=== PATIENT | male | born 1955 | race Caucasian/White ===

== ENCOUNTER 2017-10-28 03:05 | Inpatient (IN) | payer MEDICARE, MEDICAID ==
[2017-10-28] MEDS ORDERED: NORMAL SALINE 1000 ML 1,000 ML IV ONE (04:51)
[2017-10-28] MEDS ORDERED: ONDANSETRON HCL INJ/PF 4 MG/2 ML SDV IV ONE (04:51)
--- NOTE | 2017-10-28 04:53 | ER Document Report ---
ED General - General TRAVEL OUTSIDE OF THE [place] IN LAST 30 DAYS: No <JUJU OAKES - Last Filed: 10/28/17 07:14> <VIANEY COURTNEY - Last Filed: 10/28/17 08:24> - General Chief Complaint: Nausea/Vomiting Stated Complaint: FEVER,VOMITING Time Seen by Provider: 10/28/17 04:25 Notes: Patient is a 62-year-old male comes emergency department for chief complaint of chills and fevers since yesterday, weakness that has been progressive to the point that now he cannot get up without full assistance, and he has had a few episodes of vomiting today. He denies abdominal pain, headache, chest pain, shortness of breath, sore throat. Past medical history includes insulin- dependent diabetes, neuropathy, diabetic foot ulcer on the right heel, CABG. he is new to the area. He has had sepsis in the past. is at bedside. (JUJU OAKES) - Related Data Allergies/Adverse Reactions: lisinopril Allergy (Verified 10/28/17 03:10) Past Medical History - General Information source: Patient, Relative - - Social History Smoking Status: Never Smoker Frequency of alcohol use: None Drug Abuse: None Lives with: Family Family History: Reviewed & Not Pertinent - Past Medical History Cardiac Medical History: Reports: Hx Coronary Artery Disease, Hx Hypertension Endocrine Medical History: Reports: Hx Diabetes Mellitus Type 2 Past Surgical History: Reports: Hx Cholecystectomy, Hx Coronary Artery Bypass Graft - Immunizations Immunizations up to date: Yes Hx Diphtheria, Pertussis, Tetanus Vaccination: Yes <JUJU OAKES - Last Filed: 10/28/17 07:14> Review of Systems - Review of Systems Constitutional: See HPI EENT: No symptoms reported Cardiovascular: No symptoms reported Respiratory: No symptoms reported Gastrointestinal: See HPI Genitourinary: No symptoms reported Male Genitourinary: No symptoms reported Musculoskeletal: No symptoms reported Skin: No symptoms reported Hematologic/Lymphatic: No symptoms reported Neurological/Psychological: No symptoms reported <JUJU OAKES - Last Filed: 10/28/17 07:14> Physical Exam <JUJU OAKES - Last Filed: 10/28/17 07:14> <VIANEY COURTNEY - Last Filed: 10/28/17 08:24> - Vital signs Vitals: Temp Pulse Resp BP Pulse Ox 99.7 F 75 18 125/71 95 10/28/17 03:14 10/28/17 03:14 10/28/17 03:14 10/28/17 03:14 10/28/17 03:14 - Notes Notes: GENERAL: Pale, ill-appearing. However he is alert and interactive HEAD: Normocephalic, atraumatic. EYES: Pupils equal, round, and reactive to light. Extraocular movements intact. ENT: Oral mucosa very dry. Unremarkable oral pharyngeal exam. Unremarkable ENT exam otherwise. NECK: Full range of motion. Supple. Trachea midline. LUNGS: Clear to auscultation bilaterally, no wheezes, rales, or rhonchi. No respiratory distress. Old scar over the chest consistent with open heart surgery. HEART: Regular rate and rhythm. Systolic murmur. ABDOMEN: Soft, non-tender. Non-distended. Bowel sounds present in all 4 quadrants. EXTREMITIES: Moves all 4 extremities spontaneously. Small amount of edema in both extremities. Discoloration of the distal extremities. There is a large ulcerated area over the right heel with surrounding erythema and warmth. No sensation noted in the feet. Pulses and capillary refill intact. BACK: no cervical, thoracic, lumbar midline tenderness. No saddle anesthesia, normal distal neurovascular exam. NEUROLOGICAL: Alert and oriented x3. Normal speech. [cranial nerves II through XII grossly intact]. PSYCH: Normal affect, normal mood. SKIN: Pale, slightly diaphoretic (JUJU OAKES) Course - Laboratory Result Diagrams: 10/28/17 05:00 10/28/17 05:00 <JUJU OAKES - Last Filed: 10/28/17 07:14> - Laboratory Result Diagrams: 10/28/17 05:00 10/28/17 05:00 <VIANEY COURTNEY - Last Filed: 10/28/17 08:24> - Re-evaluation Re-evalutation: Patient pale, diaphoretic, ill-appearing. He is responsive, he denies any current complaints other than weakness. He is not tachycardic, hypotensive, or febrile at this time. CBC shows leukocytosis with elevation of neutrophils, 2% bands. Chemistry shows renal insufficiency with creatinine of 1.7, no comparative labs. Chemistry generally unremarkable otherwise. Abdomen is actually very benign on evaluation. Lactic acid is elevated at 4.1 concerning for sepsis. Venous blood gas is unremarkable. Chest x-ray and urinalysis are both pending. Suspect his diabetic foot ulcer could be an infection source. Initiated antibiotics. Blood cultures pending. Will Place [facility]. Patient reevaluated bedside, no significant change, states he feels okay. Capillary refill intact, vital signs without significant change. 10/28/17 07:10 Obtained urine, still pending, introduced to Jake Courtney PA-C at bedside. Will perform x-ray of the foot to rule out gas/osteo. (JUJU OAKES) 10/28/17 08:22 UA and foot XR unremarkable for acute pathology. Spoke with Dr. Lee who accepted admission to medical floor. (VIANEY COURTNEY) - Vital Signs Vital signs: Temp Pulse Resp BP Pulse Ox 99.7 F 75 18 109/39 L 95 10/28/17 03:14 10/28/17 03:14 10/28/17 06:02 10/28/17 06:02 10/28/17 06:02 - Laboratory Laboratory results interpreted by me: 10/28/17 10/28/17 10/28/17 05:00 05:00 05:00 WBC 14.1 H RBC 3.37 L Hgb 9.6 L Hct 28.4 L RDW 17.1 H Seg Neuts % (Manual) 93 H Band Neutrophils % 2 L Lymphocytes % (Manual) 2 L Abs Neuts (Manual) 13.4 H Abs Lymphs (Manual) 0.3 L BUN 49 H Creatinine 1.76 H Est GFR ( Amer) 48 L Est GFR (Non-Af Amer) 40 L Glucose 119 H Lactic Acid 4.1 H Urine Protein Urine Blood 10/28/17 07:00 WBC RBC Hgb Hct RDW Seg Neuts % (Manual) Band Neutrophils % Lymphocytes % (Manual) Abs Neuts (Manual) Abs Lymphs (Manual) BUN Creatinine Est GFR ( Amer) Est GFR (Non-Af Amer) Glucose Lactic Acid Urine Protein 30 H Urine Blood SMALL H Discharge <JUJU OAKES - Last Filed: 10/28/17 07:14> - Discharge Admitting Provider: Hospitalist - Dr. Lee Unit Admitted: Medical Floor <VIANEY COURTNEY - Last Filed: 10/28/17 08:24> - Discharge Clinical Impression: Weakness Sepsis Qualifiers: Sepsis type: sepsis due to unspecified organism Qualified Code(s): A41.9 - Sepsis, unspecified organism Condition: Stable Disposition: ADMITTED INPATIENT
[2017-10-28 05:16] LABS: VENOUS BLOOD BASE EXCESS 0.3 mmol/L; VENOUS BLOOD HCO3 25.2 mmol/L (20-32); VENOUS BLOOD PCO2 41.7 mmHg (35-63); VENOUS BLOOD PH 7.4 (7.30-7.42)
[2017-10-28 05:20] LABS: HEMATOCRIT 28.4 % (37.9-51.0); HEMOGLOBIN 9.6 g/dL (13.5-17.0); MEAN CORPUSCULAR HEMOGLOBIN 28.4 pg (27.0-33.4); MEAN CORPUSCULAR HGB CONC 33.7 g/dL (32.0-36.0); MEAN CORPUSCULAR VOLUME 84 fl (80-97); PLATELET COUNT 278 10^3/uL (150-450); RED BLOOD COUNT 3.37 10^6/uL (4.35-5.55); RED CELL DISTRIBUTION WIDTH 17.1 % (11.5-14.0); WHITE BLOOD COUNT 14.1 10^3/uL (4.0-10.5)
[2017-10-28 05:38] LABS: ALANINE AMINOTRANSFERASE 22 U/L (21-72); ALBUMIN 3.6 g/dL (3.5-5.0); ALKALINE PHOSPHATASE 85 U/L (38-126); ANION GAP 14 (5-19); ASPARTATE AMINO TRANSFERASE 18 U/L (17-59); BILIRUBIN,DIRECT 0.4 mg/dL (0.0-0.4); BILIRUBIN,TOTAL 0.8 mg/dL (0.2-1.3); BLOOD UREA NITROGEN 49 mg/dL (7-20); CALCIUM 8.9 mg/dL (8.4-10.2); CARBON DIOXIDE 24 mmol/L (22-30); CHLORIDE 100 mmol/L (98-107); GLUCOSE 119 mg/dL (75-110); LIPASE 56.4 U/L (23-300); POTASSIUM 4.9 mmol/L (3.6-5.0); SODIUM 138.3 mmol/L (137-145); TOTAL PROTEIN 6.9 g/dL (6.3-8.2)
[2017-10-28 06:06] LABS: ABSOLUTE LYMPHOCYTES# (MANUAL) 0.3 10^3/uL (0.5-4.7); ABSOLUTE MONOCYTES # (MANUAL) 0.4 10^3/uL (0.1-1.4); ABSOLUTE NEUTROPHILS# (MANUAL) 13.4 10^3/uL (1.7-8.2); BAND NEUTROPHILS % (MANUAL) 2 % (3-5); BASOPHILS % (MANUAL) 0 % (0-2); EOSINOPHILS % (MANUAL) 0 % (0-6); LYMPHOCYTES % (MANUAL) 2 % (13-45); MONOCYTES % (MANUAL) 3 % (3-13); POLYCHROMASIA SLIGHT; SCHISTOCYTES SLIGHT; SEGMENTED NEUTROPHILS % (MAN) 93 % (42-78); TOTAL CELLS COUNTED 100; TOXIC GRANULATION SLIGHT
[2017-10-28 06:07] LABS: PAPPENHEIMER BODIES PRESENT; PLATELET COMMENT ADEQUATE
[2017-10-28] MEDS ORDERED: PIPERACILLIN/TAZOBACTAM 4.5 GM VIAL IV ONE (06:10)
[2017-10-28] MEDS ORDERED: VANCOMYCIN HCL INJ 1000 MG VIAL IV ONE (06:10)
--- NOTE | 2017-10-28 07:35 | RADIOLOGY REPORT (SQ) ---
Chest single view on 10/28/2017 at 5:44 AM CLINICAL INDICATION: Fever, weakness COMPARISON: None FINDINGS: The patient is status post median sternotomy. Cardiomegaly is noted. There is minimal basilar atelectasis. The lungs are otherwise clear. Hilar and mediastinal contours are within normal limits. Pulmonary vascularity is within normal limits. Degenerative changes are noted in the left shoulder. IMPRESSION: No acute disease.
[2017-10-28 07:56] LABS: APPEARANCE,URINE CLEAR; BILIRUBIN,URINE NEGATIVE (NEGATIVE); COLOR,URINE YELLOW; GLUCOSE, URINE NEGATIVE (NEGATIVE); KETONES,URINE NEGATIVE (NEGATIVE); LEUKOCYTE ESTERASE,URINE NEGATIVE (NEGATIVE); NITRITE,URINE NEGATIVE (NEGATIVE); PROTEIN,URINE 30 mg/dL (NEGATIVE); URINE SPECIFIC GRAVITY 1.014; UROBILINOGEN,URINE NEGATIVE mg/dL (<2.0)
--- NOTE | 2017-10-28 07:56 | RADIOLOGY REPORT (SQ) ---
EXAM DESCRIPTION: XR FOOT 1-2 VIEWS COMPLETED DATE/TME: 10/28/2017 07:13 CLINICAL HISTORY: 62 years Male, eval for gas/osteo COMPARISON: None. Findings: Moderate diffuse swelling, moderate calcaneal enthesophytes, and atherosclerosis. Surgical clips of the right lower leg.. 1.0 cm ossicular avulsive fragment of the right medial malleolus. Bones, joints, and soft tissues of the XR FOOT 3 VIEWS appear otherwise intact. IMPRESSION: Swelling.
--- NOTE | 2017-10-28 09:24 | EKG REPORT ---
SEVERITY:- NORMAL ECG - SINUS RHYTHM : Confirmed by: Jenny Browning 28-Oct-2017 09:22:59
[2017-10-28] MEDS ORDERED: VANCOMYCIN HCL 0 MG in DEXTROSE 5%-WATER 250 ML IV NR (15:30)
[2017-10-28] MEDS ORDERED: DEXTROSE 40% GEL 15 GM TUBE X 2 PO PRN (21:17)
[2017-10-28] MEDS ORDERED: DEXTROSE 50%-WATER SYRINGE 12.5 GM/25 ML DOSE IV PRN (21:17)
[2017-10-28] MEDS ORDERED: DEXTROSE 50%-WATER SYRINGE 25 GM/50 ML DOSE IV PRN (21:17)
[2017-10-28] MEDS ORDERED: DEXTROSE 40% GEL 15 GM TUBE PO PRN (21:17)
[2017-10-28] MEDS ORDERED: INSULIN REG, HUMAN 100 UNIT/ML 3 ML VIAL (PYX) SUBCUT PRN (21:17)
[2017-10-28] MEDS ORDERED: GLUCAGON,HUMAN RECOMB 1 MG INJ IM PRN (21:17)
[2017-10-28] MEDS ORDERED: NORMAL SALINE 500 ML IV ONE (22:45)
[2017-10-28] MEDS: VANCOMYCIN HCL 1,000 MG in DEXTROSE 5%-WATER 250 ML IV SCH (23:49)
[2017-10-28] MEDS: ATORVASTATIN CALCIUM 40 MG TABLET PO SCH (23:50)
[2017-10-28] MEDS: HEPARIN SOD (PORCINE) 5,000 UNIT/ML 1 ML SYRINGE SUBCUT SCH (23:50)
[2017-10-28] MEDS: ATENOLOL 50 MG TABLET PO SCH (23:50)
[2017-10-29] MEDS: VANCOMYCIN HCL 1,000 MG in DEXTROSE 5%-WATER 250 ML IV SCH ×2 (05:24→19:34)
[2017-10-29] MEDS: PIPERACILLIN SODIUM/TAZOBACTAM 3.375 GM in NORMAL SALINE 100 ML IV SCH ×6 (05:24→23:33)
[2017-10-29] MEDS: HEPARIN SOD (PORCINE) 5,000 UNIT/ML 1 ML SYRINGE SUBCUT SCH ×3 (05:25→21:37)
[2017-10-29] MEDS: LANSOPRAZOLE 15 MG TAB.RAP.DR PO SCH ×2 (05:25→17:50)
[2017-10-29 05:41] LABS: HEMATOCRIT 24.8 % (37.9-51.0); HEMOGLOBIN 8.6 g/dL (13.5-17.0); MEAN CORPUSCULAR HEMOGLOBIN 29.1 pg (27.0-33.4); MEAN CORPUSCULAR HGB CONC 34.5 g/dL (32.0-36.0); MEAN CORPUSCULAR VOLUME 85 fl (80-97); PLATELET COUNT 194 10^3/uL (150-450); RED BLOOD COUNT 2.94 10^6/uL (4.35-5.55); RED CELL DISTRIBUTION WIDTH 17.9 % (11.5-14.0); WHITE BLOOD COUNT 9.8 10^3/uL (4.0-10.5)
[2017-10-29 06:50] LABS: ANION GAP 13 (5-19); BLOOD UREA NITROGEN 50 mg/dL (7-20); CALCIUM 7.9 mg/dL (8.4-10.2); CARBON DIOXIDE 23 mmol/L (22-30); CHLORIDE 96 mmol/L (98-107); GLUCOSE 237 mg/dL (75-110); POTASSIUM 5.1 mmol/L (3.6-5.0); SODIUM 131.5 mmol/L (137-145)
--- NOTE | 2017-10-29 07:40 | PDOC H&P ---
History of Present Illness Admission Date/PCP: 10/28/17 14:59 Patient complains of: dizziness, nausea, not feeling well History of Present Illness: FAVIO JEFFRIES is a 62 year old male with a past medical history of insulin- dependent diabetes mellitus, hypertension, and prior quadruple bypass who presented with complaints of weakness, dizziness and overall not feeling well. Patient says that this is been going on for the past 2 days. He denies any fever or chills. He has a chronic nonhealing ulcer on the right heel. He denies increasing discharge from the wound. He denies any dysuria or hematuria , frequency or clumping. No cough or shortness of breath. No chest pain. Denies headaches. He said he had 3 episodes of nonbloody nonbilious vomiting last night. Past Medical History Cardiac Medical History: Reports: Coronary Artery Disease, Hypertension Endocrine Medical History: Reports: Diabetes Mellitus Type 2 GI Medical History: Reports: Gastroesophageal Reflux Disease Musculoskeltal Medical History: Reports: Arthritis Psychiatric Medical History: Reports: Depression Hematology: Reports: Anemia Past Surgical History Past Surgical History: Reports: Cholecystectomy, Coronary Artery Bypass Graft Social History Lives with: Family Smoking Status: Never Smoker - Advance Directive Resuscitation Status: Full Code Family History Family History: Reviewed & Not Pertinent Medication/Allergy Home Medications: Aspirin [Aspirin EC] 81 mg PO DAILY 10/28/17 Atenolol [Tenormin 50 mg Tablet] 50 mg PO Q12 10/28/17 Atorvastatin Calcium [Lipitor 40 mg Tablet] 40 mg PO QHS 10/28/17 Cranberry Fruit Extract [Cranberry] 300 mg PO DAILY 10/28/17 Furosemide [Lasix 20 mg Tablet] 20 mg PO BID 10/28/17 Insulin Regular, Human [Humulin R (Reg) Insulin 100 unit/mL] 28 unit SQ ACLUNCH 10/28/17 Insulin Regular, Human [Humulin R (Reg) Insulin 100 unit/mL] 86 unit SQ ACSUPPER 10/28/17 Insulin Regular, Human [Humulin R (Reg) Insulin 100 unit/mL] 96 unit SQ QAM 05/16 Iron 65 mg PO DAILY 10/28/17 Losartan Potassium [Cozaar 100 mg Tablet] 100 mg PO DAILY 10/28/17 Metoclopramide HCl [Reglan] 5 mg PO TID 10/28/17 NPH, Human Insulin Isophane [Humulin N (NPH) Insulin 100 unit/mL] 74 units SQ QAM 10/28/17 NPH, Human Insulin Isophane [Humulin N (NPH) Insulin 100 unit/mL] 150 unit SQ QHS 10/28/17 Omeprazole 20 mg PO BID 10/28/17 Potassium Chloride [Klor-Con 10 Meq Capsule ER] 10 mg PO DAILY 10/28/17 Ciprofloxacin HCl [Cipro 750 mg Tablet] 750 mg PO Q12 84 Days tablet 11/03/17 Allergies/Adverse Reactions: lisinopril Allergy (Verified 10/28/17 08:51) Review of Systems ROS unobtainable: Due to endotracheal tube, Due to mental status, Other All systems: reviewed and no additional remarkable complaints except as stated - as mentioned in HPI Physical Exam Vital Signs: Temp Pulse Resp BP Pulse Ox 98.9 F 63 18 140/89 H 100 10/28/17 22:00 10/28/17 22:00 10/28/17 22:00 10/28/17 22:00 10/28/17 22:00 Intake & Output 10/28/17 10/29/17 10/30/17 06:59 06:59 06:59 Intake Total 850 Output Total 500 Balance 350 Weight 345 lb 7.43 oz General appearance: PRESENT: no acute distress, well-developed, well-nourished Head exam: PRESENT: atraumatic, normocephalic Throat exam: PRESENT: post pharyngeal erythema, tonsillar erythema, tonsillar exudate, tonsillogmegaly, other Neck exam: ABSENT: carotid bruit, JVD, lymphadenopathy, thyromegaly Respiratory exam: PRESENT: clear to auscultation eliseo. ABSENT: rales, rhonchi, wheezes Cardiovascular exam: PRESENT: RRR. ABSENT: diastolic murmur, rubs, systolic murmur Pulses: PRESENT: normal dorsalis pedis pul Vascular exam: PRESENT: normal capillary refill GI/Abdominal exam: PRESENT: normal bowel sounds, soft. ABSENT: distended, guarding, mass, organolmegaly, rebound, tenderness Rectal exam: PRESENT: deferred Musculoskeletal exam: PRESENT: other - Note of a 2 x 2 centimeters, chronic, ulcer on the right heel, with no active discharge. No surrounding tenderness. Note of minimal erythema on the right lower leg. Neurological exam: PRESENT: alert, awake, oriented to person, oriented to place , oriented to time, oriented to situation, CN II-XII grossly intact. ABSENT: motor sensory deficit Results Laboratory Results: 10/29/17 05:10 10/29/17 05:10 10/28/17 10/29/17 10/29/17 20:15 01:01 05:10 WBC 9.8 RBC 2.94 L Hgb 8.6 L Hct 24.8 L MCV 85 MCH 29.1 MCHC 34.5 RDW 17.9 H Plt Count 194 Sodium Potassium Chloride Carbon Dioxide Anion Gap BUN Creatinine Est GFR ( Amer) Est GFR (Non-Af Amer) Glucose Lactic Acid 3.8 H 3.3 H Calcium 10/29/17 05:10 WBC RBC Hgb Hct MCV MCH MCHC RDW Plt Count Sodium 131.5 L Potassium 5.1 H Chloride 96 L Carbon Dioxide 23 Anion Gap 13 BUN 50 H Creatinine 1.79 H Est GFR ( Amer) 47 L Est GFR (Non-Af Amer) 39 L Glucose 237 H Lactic Acid Calcium 7.9 L Impressions: Chest X-Ray 10/28/17 04:50 IMPRESSION: No acute disease. Foot X-Ray 10/28/17 07:13 IMPRESSION: Swelling. Assessment & Plan - Diagnosis (1) Sepsis Qualifiers: Sepsis type: sepsis due to unspecified organism Qualified Code(s): A41.9 - Sepsis, unspecified organism Is this a current diagnosis for this admission?: Yes Plan: Chest x-ray and urinalysis were unremarkable. Sepsis suspected to be likely secondary to infection of the right heel ulcer. Patient was given broad- spectrum IV antibiotic in the ER. Lactic acid was initially elevated. We will continue to check lactic acid. Blood culture came back positive for gram- negative bacilli. We will continue vancomycin and IV Zosyn and Timentin. De- escalate antibiotics pending blood culture and sensitivity results. (2) Non-healing ulcer of right foot Is this a current diagnosis for this admission?: Yes Plan: Culture from right to the ulcer is pending. Continue IV antibiotics. Daily dressing changes. (3) Insulin dependent diabetes mellitus Is this a current diagnosis for this admission?: Yes Plan: Sliding scale at the moment. Continue to monitor blood sugars. - Time Time Spent: 30 to 50 Minutes - Inpatient Certification I certify that my determination is in accordance with my understanding of Medicare's requirements for reasonable and necessary INPATIENT services [42 CFR 412.3e].: Yes Medical Necessity: Failure to Improve With Outpatient Therapy, Need For IV Fluids
[2017-10-29] MEDS ORDERED: METFORMIN HCL 500 MG TABLET PO SCH (08:00)
[2017-10-29] MEDS ORDERED: (PENDING PHARMACY ID) (Iron [Iron] 65 MG) PO SCH (10:00)
[2017-10-29] MEDS: INSULIN NPH (ISOPHANE), HUMAN 100 UNIT/ML 3 ML SUBCUT SCH ×2 (10:40→17:52)
[2017-10-29] MEDS: METOCLOPRAMIDE HCL 10 MG TABLET PO SCH ×3 (10:42→17:51)
[2017-10-29] MEDS: ASPIRIN 81 MG TABLET, ENT COATED PO SCH (10:44)
[2017-10-29] MEDS: FERROUS SULFATE 325 MG TABLET PO SCH (10:44)
--- NOTE | 2017-10-29 11:48 | PDOC PROGRESS REPORT ---
Subjective Progress Note for:: 10/29/17 Subjective:: Mr. Neal is a 62-year-old male who was initially admitted for sepsis. No acute overnight. No fever chills. He denies pain on his leg and right foot ulcer but he does have long-standing severe diabetic neuropathy. He denies any shortness of breath or chest pain. He is tolerating diet well. Reason For Visit: POSSIBLE SEPSIS,CHRONIC NON HEALING ULCER,STAGE 3 Physical Exam Vital Signs: Temp Pulse Resp BP Pulse Ox 99.5 F 65 16 97/72 L 98 10/29/17 08:15 10/29/17 08:15 10/29/17 08:15 10/29/17 08:15 10/29/17 08:15 Intake & Output 10/28/17 10/29/17 10/30/17 06:59 06:59 06:59 Intake Total 850 Output Total 500 Balance 350 Weight 345 lb 7.43 oz General appearance: PRESENT: no acute distress, well-developed, well-nourished Head exam: PRESENT: atraumatic, normocephalic Eye exam: PRESENT: conjunctiva pink, EOMI, PERRLA. ABSENT: scleral icterus Neck exam: ABSENT: carotid bruit, JVD, lymphadenopathy, thyromegaly Respiratory exam: PRESENT: clear to auscultation eliseo. ABSENT: rales, rhonchi, wheezes Cardiovascular exam: PRESENT: RRR. ABSENT: diastolic murmur, rubs, systolic murmur Pulses: PRESENT: normal dorsalis pedis pul GI/Abdominal exam: PRESENT: normal bowel sounds, soft. ABSENT: distended, guarding, mass, organolmegaly, rebound, tenderness Rectal exam: PRESENT: deferred Neurological exam: PRESENT: alert, awake, oriented to person, oriented to place , oriented to time, oriented to situation, CN II-XII grossly intact. ABSENT: motor sensory deficit Results Laboratory Results: 10/29/17 05:10 10/29/17 05:10 10/28/17 10/29/17 10/29/17 20:15 01:01 05:10 WBC 9.8 RBC 2.94 L Hgb 8.6 L Hct 24.8 L MCV 85 MCH 29.1 MCHC 34.5 RDW 17.9 H Plt Count 194 Sodium Potassium Chloride Carbon Dioxide Anion Gap BUN Creatinine Est GFR ( Amer) Est GFR (Non-Af Amer) Glucose Lactic Acid 3.8 H 3.3 H Calcium 10/29/17 05:10 WBC RBC Hgb Hct MCV MCH MCHC RDW Plt Count Sodium 131.5 L Potassium 5.1 H Chloride 96 L Carbon Dioxide 23 Anion Gap 13 BUN 50 H Creatinine 1.79 H Est GFR ( Amer) 47 L Est GFR (Non-Af Amer) 39 L Glucose 237 H Lactic Acid Calcium 7.9 L Impressions: Chest X-Ray 10/28/17 04:50 IMPRESSION: No acute disease. Foot X-Ray 10/28/17 07:13 IMPRESSION: Swelling. Assessment & Plan - Diagnosis (1) Sepsis Qualifiers: Sepsis type: sepsis due to unspecified organism Qualified Code(s): A41.9 - Sepsis, unspecified organism Is this a current diagnosis for this admission?: Yes Plan: Sepsis suspected to be likely secondary to infection of the right heel ulcer. Blood culture grew gram-negative bacilli. Will await final culture and sensitivity results. Lactic acid is normalized. Continue vancomycin and IV Zosyn for now. De-escalate antibiotics pending blood culture and sensitivity results. (2) Non-healing ulcer of right foot Is this a current diagnosis for this admission?: Yes Plan: Patient is a stage III right foot ulcer. Culture from right to the ulcer is pending. Continue IV antibiotics. Daily dressing changes. Will order for MRI of the right foot to rule out osteomyelitis. (3) Insulin dependent diabetes mellitus Is this a current diagnosis for this admission?: Yes Plan: Resume home regimen of NPH. Continue sliding scale. Continue to monitor blood sugars. - Time Time Spent with patient: 25-34 minutes
[2017-10-29] MEDS ORDERED: GLUCAGON,HUMAN RECOMB 1 MG INJ IM PRN (11:55)
[2017-10-29] MEDS ORDERED: DEXTROSE 50%-WATER 25 GM/50 ML DISP.SYRIN IV PRN ×2 (11:55)
[2017-10-29] MEDS ORDERED: DEXTROSE 40% GEL 15 GM TUBE PO PRN ×2 (11:55)
[2017-10-29] MEDS ORDERED: NORMAL SALINE 1000 ML 1,000 ML IV SCH (12:00)
[2017-10-29] MEDS: ATENOLOL 50 MG TABLET PO SCH ×2 (12:42→21:24)
[2017-10-29] MEDS: INSULIN REG, HUMAN 100 UNIT/ML 3 ML VIAL (PYX) SUBCUT PRN ×3 (12:43→21:25)
[2017-10-29] MEDS ORDERED: LORAZEPAM INJ 2 MG/1 ML VIAL IV PRN (14:29)
--- NOTE | 2017-10-29 16:24 | RADIOLOGY REPORT (SQ) ---
EXAM DESCRIPTION: MRI RT LOWER EXTREMITY WITHOUT COMPLETED DATE/TIME: 10/29/2017 4:00 pm REASON FOR STUDY: r/o osteomyelitis, chronic right foot ulcer TECHNIQUE: Multiplanar imaging of the right foot to include fat and fluid sensitive sequences. LIMITATIONS: None. FINDINGS: BONE MARROW: Abnormal marrow edema is present in the plantar aspect of the calcaneus worri some for osteomyelitis. This is immediately deep to a 3 cm diameter soft tissue ulcer along the plan tar calcaneal soft tissues. The distal tibia and fibula, talus, tarsal bones in the field of view ar e intact. SOFT TISSUES: There is a 3 cm diameter plantar calcaneal ulcer with diffuse cellulitis throughout the ankle and visualized foot soft tissues. There is skin thickening and diffuse subcutaneous edema wit hout soft tissue abscess. Plantar fascia attachment to the calcaneus in the region of the ulcer stil l intact. OTHER: No other significant finding. IMPRESSION: Calcaneal osteomyelitis TECHNICAL DOCUMENTATION: JOB ID: [id number] [employer]- All Rights Reserved COMPARISON: None. Right foot three views 10/28/2017 Reading location - IP/workstation name: [id number]
[2017-10-29 18:39] LABS: VANCOMYCIN,TROUGH 15.7 ug/mL (5.0-20.0)
[2017-10-29] MEDS: NYSTATIN TOPICAL POWDER 15 GM TP SCH (19:38)
[2017-10-29] MEDS: ATORVASTATIN CALCIUM 40 MG TABLET PO SCH (21:24)
[2017-10-29] MEDS ORDERED: NORMAL SALINE 1000 ML 1,000 ML IV ONE (22:30)
[2017-10-30 04:37] LABS: ABSOLUTE LYMPHOCYTES (AUTO) 0.6 10^3/uL (0.5-4.7); ABSOLUTE MONOCYTES (AUTO) 0.7 10^3/uL (0.1-1.4); ABSOLUTE NEUT (AUTO) 6.8 10^3/uL (1.7-8.2); BASOPHILS % (AUTO) 0.1 % (0-2); EOSINOPHILS % (AUTO) 0.1 % (0-6); HEMATOCRIT 23.3 % (37.9-51.0); HEMOGLOBIN 8.2 g/dL (13.5-17.0); LYMPHOCYTES % (AUTO) 7.6 % (13-45); MEAN CORPUSCULAR HEMOGLOBIN 29.4 pg (27.0-33.4); MEAN CORPUSCULAR HGB CONC 35.3 g/dL (32.0-36.0); MEAN CORPUSCULAR VOLUME 83 fl (80-97); PLATELET COUNT 178 10^3/uL (150-450); RED BLOOD COUNT 2.79 10^6/uL (4.35-5.55); RED CELL DISTRIBUTION WIDTH 17.5 % (11.5-14.0); SEGMENTED NEUTROPHILS % (AUTO) 83.2 % (42-78); TOTAL CELLS COUNTED % (AUTO) 100 %; WHITE BLOOD COUNT 8.2 10^3/uL (4.0-10.5)
[2017-10-30 04:57] LABS: ANION GAP 11 (5-19); BLOOD UREA NITROGEN 44 mg/dL (7-20); CALCIUM 7.5 mg/dL (8.4-10.2); CARBON DIOXIDE 24 mmol/L (22-30); CHLORIDE 97 mmol/L (98-107); GLUCOSE 200 mg/dL (75-110); POTASSIUM 4.6 mmol/L (3.6-5.0)
[2017-10-30] MEDS: HEPARIN SOD (PORCINE) 5,000 UNIT/ML 1 ML SYRINGE SUBCUT SCH ×2 (05:00→17:38)
[2017-10-30] MEDS: LANSOPRAZOLE 15 MG TAB.RAP.DR PO SCH ×2 (05:01→17:51)
[2017-10-30] MEDS: PIPERACILLIN SODIUM/TAZOBACTAM 3.375 GM in NORMAL SALINE 100 ML IV SCH ×4 (05:56→23:46)
[2017-10-30] MEDS: VANCOMYCIN HCL 1,000 MG in DEXTROSE 5%-WATER 250 ML IV SCH (07:01)
[2017-10-30] MEDS: INSULIN REG, HUMAN 100 UNIT/ML 3 ML VIAL (PYX) SUBCUT PRN ×4 (08:04→21:56)
[2017-10-30] MEDS: INSULIN NPH (ISOPHANE), HUMAN 100 UNIT/ML 3 ML SUBCUT SCH ×2 (09:43→17:42)
[2017-10-30] MEDS: METOCLOPRAMIDE HCL 10 MG TABLET PO SCH ×3 (09:44→17:50)
[2017-10-30] MEDS ORDERED: MIDAZOLAM 2 MG/2 ML INJ ONE (11:22)
[2017-10-30] MEDS ORDERED: FENTANYL CITRATE INJ/PF 100 MCG/2 ML AMPUL ONE (11:22)
[2017-10-30] MEDS ORDERED: PROPOFOL INJ 200 MG/20 ML VIAL IV ONE (11:23)
[2017-10-30] MEDS ORDERED: MEPERIDINE HCL/PF INJ 25 MG/1 ML DISP.SYRIN IV PRN (11:47)
[2017-10-30] MEDS ORDERED: DIPHENHYDRAMINE HCL 50 MG/ML VIAL IV PRN (11:47)
[2017-10-30] MEDS ORDERED: FENTANYL CITRATE INJ/PF 100 MCG/2 ML AMPUL IV PRN ×3 (11:47)
[2017-10-30] MEDS ORDERED: LIDOCAINE 1% INJ-PF (10 MG/ML) 30 ML SDV ONE (11:51)
[2017-10-30] MEDS ORDERED: OXYCODONE-ACETAMINOPHEN 5-325 MG TABLET PO ONE (12:58)
[2017-10-30] MEDS ORDERED: OXYCODONE-ACETAMINOPHEN 5-325 MG TABLET ONE (12:58)
[2017-10-30] MEDS ORDERED: OXYCODONE-ACETAMINOPHEN 5-325 MG TABLET PO PRN (13:59)
[2017-10-30] MEDS ORDERED: ONDANSETRON HCL INJ/PF 4 MG/2 ML SDV IV PRN (14:00)
[2017-10-30] MEDS ORDERED: ONDANSETRON 4 MG TAB.RAPDIS PO PRN (14:01)
[2017-10-30] MEDS: FERROUS SULFATE 325 MG TABLET PO SCH (14:26)
[2017-10-30] MEDS: NYSTATIN TOPICAL POWDER 15 GM TP SCH ×2 (14:27→19:31)
[2017-10-30] MEDS: ATENOLOL 50 MG TABLET PO SCH ×2 (14:27→21:55)
[2017-10-30] MEDS: ASPIRIN 81 MG TABLET, ENT COATED PO SCH (14:59)
[2017-10-30] MEDS: NORMAL SALINE 1000 ML 1,000 ML IV PRN (15:57)
--- NOTE | 2017-10-30 16:03 | PDOC PROGRESS REPORT ---
Subjective Progress Note for:: 10/30/17 Subjective:: Mr. Neal is a 62-year-old male who was initially admitted for sepsis. No acute overnight. No fever chills. He denies pain on his leg and right foot ulcer but he does have long-standing severe diabetic neuropathy. He denies any shortness of breath or chest pain. Patient just underwent debridement with bone biopsy and wound VAC placement of his chronic nonhealing ulcer. Reason For Visit: SEPSIS Physical Exam Vital Signs: Temp Pulse Resp BP Pulse Ox 97.5 F 60 18 133/57 H 94 10/30/17 14:30 10/30/17 14:30 10/30/17 14:30 10/30/17 14:30 10/30/17 14:30 Intake & Output 10/29/17 10/30/17 10/31/17 06:59 06:59 06:59 Intake Total 2530 125 Output Total 3150 125 Balance -620 0 Weight 345 lb 14.484 oz General appearance: PRESENT: no acute distress Head exam: PRESENT: atraumatic Eye exam: PRESENT: conjunctiva pink Neck exam: ABSENT: carotid bruit, JVD, lymphadenopathy, thyromegaly Respiratory exam: PRESENT: clear to auscultation eliseo. ABSENT: rales, rhonchi, wheezes Cardiovascular exam: PRESENT: RRR. ABSENT: diastolic murmur, rubs, systolic murmur Pulses: PRESENT: normal dorsalis pedis pul GI/Abdominal exam: PRESENT: normal bowel sounds, soft. ABSENT: distended, guarding, mass, rebound, tenderness Rectal exam: PRESENT: deferred Musculoskeletal exam: PRESENT: other - Status post debridement of the right heel ulcer, wound VAC in place Neurological exam: PRESENT: alert, awake, oriented to person, oriented to place , oriented to time, oriented to situation, CN II-XII grossly intact. ABSENT: motor sensory deficit Results Laboratory Results: 10/30/17 04:12 10/30/17 04:12 10/29/17 10/29/17 10/30/17 19:50 19:50 04:12 WBC 8.2 RBC 2.79 L Hgb 8.2 L Hct 23.3 L MCV 83 MCH 29.4 MCHC 35.3 RDW 17.5 H Plt Count 178 Seg Neutrophils % 83.2 H Lymphocytes % 7.6 L Monocytes % 9.0 Eosinophils % 0.1 Basophils % 0.1 Absolute Neutrophils 6.8 Absolute Lymphocytes 0.6 Absolute Monocytes 0.7 Absolute Eosinophils 0.0 Absolute Basophils 0.0 Sodium Potassium Chloride Carbon Dioxide Anion Gap BUN Creatinine Est GFR ( Amer) Est GFR (Non-Af Amer) Glucose Lactic Acid 3.0 H Calcium C-Reactive Protein 175.3 H 10/30/17 10/30/17 04:12 04:12 WBC RBC Hgb Hct MCV MCH MCHC RDW Plt Count Seg Neutrophils % Lymphocytes % Monocytes % Eosinophils % Basophils % Absolute Neutrophils Absolute Lymphocytes Absolute Monocytes Absolute Eosinophils Absolute Basophils Sodium 132.0 L Potassium 4.6 Chloride 97 L Carbon Dioxide 24 Anion Gap 11 BUN 44 H Creatinine 1.58 H Est GFR ( Amer) 54 L Est GFR (Non-Af Amer) 45 L Glucose 200 H Lactic Acid 1.2 Calcium 7.5 L C-Reactive Protein Impressions: Chest X-Ray 10/28/17 04:50 IMPRESSION: No acute disease. Foot X-Ray 10/28/17 07:13 IMPRESSION: Swelling. Lower Extremity MRI 10/29/17 00:00 IMPRESSION: Calcaneal osteomyelitis Assessment & Plan - Diagnosis (1) Sepsis Qualifiers: Sepsis type: sepsis due to unspecified organism Qualified Code(s): A41.9 - Sepsis, unspecified organism Is this a current diagnosis for this admission?: Yes Plan: Sepsis is secondary to osteomyelitis. Blood and wound cultures grew gram- negative rods and E. coli. Discontinue vancomycin and continue Zosyn. Will de- escalate antibiotics pending final culture and sensitivity results. (2) Non-healing ulcer of right foot Is this a current diagnosis for this admission?: Yes Plan: MRI showed calcaneal ostium mellitus. Patient is status post debridement and wound VAC placement. Will await for results of blood biopsy. Patient will need 6 weeks of IV antibiotics for osteomyelitis. (3) Insulin dependent diabetes mellitus Is this a current diagnosis for this admission?: Yes Plan: The blood sugars overnight. Increase insulin NPH to 150 units at night. Continue insulin NPH 74 units before breakfast. Continue sliding scale. - Time Time Spent with patient: 25-34 minutes
[2017-10-30] MEDS: FUROSEMIDE 20 MG TABLET PO SCH (17:51)
--- NOTE | 2017-10-30 18:20 | OPERATIVE REPORT E ---
Operative Report NAME: FAVIO JEFFRIES : 1955 AGE: 62Y DATE OF SURGERY: 10/29/2017 ROOM: 531 PREOPERATIVE DIAGNOSIS: Chronic nonhealing ulcer of the right heel with osteomyelitis right calcaneus. SURGEON: CASS SERRANO M.D. ANESTHESIA: Local MAC. PROCEDURE: 1. Debridement of right heel ulcer, plantar area about 5 x 5 cm down to the bone about 2.5 cm deep. 2. Bone biopsy. INDICATION: This 62-year-old male with chronic ulcer along the right heel plantar area for about a year. He is being seen by a orthotics prosthetics assistant in [place], [place] almost on a weekly basis. Unfortunately the heel is not improving. He has palpable pulses along the right ankle though with some edema around it. DESCRIPTION OF PROCEDURE: After adequate IV sedation, the patient was placed in the supine position and the right leg elevated. The right foot was subsequently prepped and draped in the usual sterile fashion. Local anesthesia was then infiltrated around the ulcer. There is some necrotic tissue around it that was sharply debrided using #10 and #5 blades. Debridement carried down to the area of the bone. There is minimal amount of dark fluid downwards to the bone site. The bone was subsequently rongeur to get the biopsy and for culture. Hemostasis was then obtained with cautery. After adequate hemostasis noted a wound VAC was then placed over the ulcer and connected to suction at -125 mmHg pressure. The patient tolerated the procedure well. Needle, instruments, sponge counts were all correct. Estimated blood loss about 10 mL. The patient then brought to the recovery room in satisfactory condition. DICTATING PHYSICIAN: CASS SERRANO M.D. [id number] PHY#: [id number] ID: [id number] JOB#: [id number] ACCT: [id number] cc:CASS SERRANO M.D. > [id number]
[2017-10-30] MEDS: ATORVASTATIN CALCIUM 40 MG TABLET PO SCH (21:55)
[2017-10-31] MEDS: PIPERACILLIN SODIUM/TAZOBACTAM 3.375 GM in NORMAL SALINE 100 ML IV SCH ×4 (05:39→23:41)
[2017-10-31] MEDS: LANSOPRAZOLE 15 MG TAB.RAP.DR PO SCH ×2 (05:40→17:40)
[2017-10-31] MEDS: NORMAL SALINE 1000 ML 1,000 ML IV PRN (05:41)
[2017-10-31 07:17] LABS: ANION GAP 11 (5-19); BLOOD UREA NITROGEN 39 mg/dL (7-20); CALCIUM 7.5 mg/dL (8.4-10.2); CARBON DIOXIDE 24 mmol/L (22-30); CHLORIDE 100 mmol/L (98-107); GLUCOSE 158 mg/dL (75-110); POTASSIUM 4.2 mmol/L (3.6-5.0); SODIUM 134.9 mmol/L (137-145)
[2017-10-31] MEDS: METOCLOPRAMIDE HCL 10 MG TABLET PO SCH ×3 (08:39→17:41)
[2017-10-31] MEDS: INSULIN NPH (ISOPHANE), HUMAN 100 UNIT/ML 3 ML SUBCUT SCH ×2 (08:40→17:44)
[2017-10-31] MEDS: INSULIN REG, HUMAN 100 UNIT/ML 3 ML VIAL (PYX) SUBCUT PRN ×4 (08:40→21:43)
[2017-10-31] MEDS: FERROUS SULFATE 325 MG TABLET PO SCH (09:32)
[2017-10-31] MEDS: ATENOLOL 50 MG TABLET PO SCH ×2 (09:32→21:39)
[2017-10-31] MEDS: ASPIRIN 81 MG TABLET, ENT COATED PO SCH (09:34)
[2017-10-31] MEDS: FUROSEMIDE 20 MG TABLET PO SCH ×2 (09:34→17:40)
[2017-10-31] MEDS: ENOXAPARIN SODIUM INJ 40 MG/0.4 ML DISP.SYRIN SUBCUT SCH (09:38)
[2017-10-31] MEDS: NYSTATIN TOPICAL POWDER 15 GM TP SCH ×2 (09:44→17:39)
--- NOTE | 2017-10-31 16:28 | PDOC PROGRESS REPORT ---
Subjective Progress Note for:: 10/31/17 Subjective:: Mr. Neal is a 62-year-old male who was initially admitted for sepsis. Patient underwent debridement with bone biopsy and wound VAC placement on for his chronic nonhealing ulcer. No acute overnight. No fever or chills. He denies pain on his leg and right foot ulcer but he does have long-standing severe diabetic neuropathy. He denies any shortness of breath or chest pain. He is tolerating diet well. Reason For Visit: SEPSIS Physical Exam Vital Signs: Temp Pulse Resp BP Pulse Ox 98.2 F 52 L 20 155/51 H 93 10/31/17 13:53 10/31/17 13:53 10/31/17 13:53 10/31/17 13:53 10/31/17 13:53 Intake & Output 10/30/17 10/31/17 11/01/17 06:59 06:59 06:59 Intake Total 2530 2625 200 Output Total 3150 1865 Balance -620 760 200 Weight 345 lb 14.484 oz 340 lb 13.354 oz General appearance: PRESENT: no acute distress, well-developed, well-nourished Head exam: PRESENT: atraumatic, normocephalic Eye exam: PRESENT: conjunctiva pink, EOMI, PERRLA. ABSENT: scleral icterus Neck exam: ABSENT: carotid bruit, JVD, lymphadenopathy, thyromegaly Respiratory exam: PRESENT: clear to auscultation eliseo. ABSENT: rales, rhonchi, wheezes Cardiovascular exam: PRESENT: RRR. ABSENT: diastolic murmur, rubs, systolic murmur GI/Abdominal exam: PRESENT: normal bowel sounds, soft. ABSENT: distended, guarding, mass, organolmegaly, rebound, tenderness Rectal exam: PRESENT: deferred Extremities exam: PRESENT: other - wound vac in place Neurological exam: PRESENT: alert, awake, oriented to person, oriented to place , oriented to time, oriented to situation, CN II-XII grossly intact Results Laboratory Results: 10/30/17 04:12 10/31/17 06:29 10/31/17 06:29 Sodium 134.9 L Potassium 4.2 Chloride 100 Carbon Dioxide 24 Anion Gap 11 BUN 39 H Creatinine 1.65 H Est GFR ( Amer) 52 L Est GFR (Non-Af Amer) 43 L Glucose 158 H Calcium 7.5 L Impressions: Chest X-Ray 10/28/17 04:50 IMPRESSION: No acute disease. Foot X-Ray 10/28/17 07:13 IMPRESSION: Swelling. Lower Extremity MRI 10/29/17 00:00 IMPRESSION: Calcaneal osteomyelitis Assessment & Plan - Diagnosis (1) Sepsis Qualifiers: Sepsis type: sepsis due to unspecified organism Qualified Code(s): A41.9 - Sepsis, unspecified organism Is this a current diagnosis for this admission?: Yes Plan: Sepsis is secondary to osteomyelitis. Blood and wound cultures grew E. coli and Proteus. Vancomycin discontinued. Continue Zosyn. Will de-escalate antibiotics pending final culture and sensitivity results. (2) Non-healing ulcer of right foot Is this a current diagnosis for this admission?: Yes Plan: MRI showed calcaneal ostium mellitus. Patient is status post debridement and wound VAC placement. Will await for results of bone biopsy. Patient will need 6 weeks of IV antibiotics for osteomyelitis. (3) Insulin dependent diabetes mellitus Is this a current diagnosis for this admission?: Yes Plan: Noted blood sugars overnight. Continue insulin NPH to 150 units at night. Continue insulin NPH 74 units before breakfast. Continue sliding scale. - Time Time Spent with patient: 25-34 minutes
[2017-10-31] MEDS: ATORVASTATIN CALCIUM 40 MG TABLET PO SCH (21:39)
--- NOTE | 2017-10-31 22:22 | PDOC PROGRESS REPORT ---
Subjective Progress Note for:: 10/31/17 Subjective:: no pains but walks on his right heel because of neuropathy and no sensation of foot Reason For Visit: SEPSIS Physical Exam Vital Signs: Temp Pulse Resp BP Pulse Ox 97.3 F 56 L 19 150/55 H 95 10/31/17 16:46 10/31/17 16:46 10/31/17 16:46 10/31/17 16:46 10/31/17 16:46 Intake & Output 10/30/17 10/31/17 11/01/17 06:59 06:59 06:59 Intake Total 2530 2625 2100 Output Total 3150 1865 850 Balance -653 895 8611 Weight 156.9 kg 154.6 kg Exam: wound vac in place. Has edema of both lower extremities. Lactic acid has been normal and therefore adequately hydrated. Will D/C IVF. Results Laboratory Results: 10/30/17 04:12 10/31/17 06:29 10/31/17 06:29 Sodium 134.9 L Potassium 4.2 Chloride 100 Carbon Dioxide 24 Anion Gap 11 BUN 39 H Creatinine 1.65 H Est GFR ( Amer) 52 L Est GFR (Non-Af Amer) 43 L Glucose 158 H Calcium 7.5 L Impressions: Chest X-Ray 10/28/17 04:50 IMPRESSION: No acute disease. Foot X-Ray 10/28/17 07:13 IMPRESSION: Swelling. Lower Extremity MRI 10/29/17 00:00 IMPRESSION: Calcaneal osteomyelitis Assessment & Plan - Time Time Spent with patient: 15-24 minutes - Plan Summary Plan Summary: Preliminary cultre/gm stain showed G- rods from foot/bone. Awaiting final sensitivity. To have picc line tomorrow for 6 weeks IV antibiotics Ordered walker so patient can see his foot while walking and try to put weight on the ball of right foot. He says he has used a walker in the past. Will need home VAC therapy. Discharge planning nurse can arrange for this. Also, will need follow up at the wound care center for evaluation of right heel ulcer healing. Discharge planning nurse can also make arrangement for this. Will sign off. Call if have questions
[2017-11-01] MEDS: LANSOPRAZOLE 15 MG TAB.RAP.DR PO SCH ×2 (05:50→17:09)
[2017-11-01] MEDS: PIPERACILLIN SODIUM/TAZOBACTAM 3.375 GM in NORMAL SALINE 100 ML IV SCH ×4 (05:51→23:02)
[2017-11-01] MEDS: INSULIN NPH (ISOPHANE), HUMAN 100 UNIT/ML 3 ML SUBCUT SCH ×2 (07:48→17:02)
[2017-11-01] MEDS: METOCLOPRAMIDE HCL 10 MG TABLET PO SCH ×3 (08:02→17:10)
[2017-11-01] MEDS: NYSTATIN TOPICAL POWDER 15 GM TP SCH ×2 (10:40→17:37)
[2017-11-01] MEDS: ASPIRIN 81 MG TABLET, ENT COATED PO SCH (10:42)
[2017-11-01] MEDS: FERROUS SULFATE 325 MG TABLET PO SCH (10:46)
[2017-11-01] MEDS: FUROSEMIDE 20 MG TABLET PO SCH ×2 (10:47→17:08)
[2017-11-01] MEDS: ATENOLOL 50 MG TABLET PO SCH ×2 (10:47→21:41)
[2017-11-01] MEDS: ENOXAPARIN SODIUM INJ 40 MG/0.4 ML DISP.SYRIN SUBCUT SCH (10:51)
[2017-11-01] MEDS: INSULIN REG, HUMAN 100 UNIT/ML 3 ML VIAL (PYX) SUBCUT PRN ×3 (12:49→22:54)
--- NOTE | 2017-11-01 15:04 | RADIOLOGY REPORT (SQ) ---
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 TECHNIQUE: Fluoroscopic and ultrasound guided PICC placement. LIMITATIONS: None. PROCEDURE: After written consent and assessment were obtained, the patient was brought into the fluo roscopy room and place supine on the table. Ultrasound evaluation of potential access sites were perf ormed. After successfully identifying a patent left basilic vein, the left arm was prepped and draped in a sterile fashion along with the ultrasound probe. The entry site was anesthetized with 1% lidoca ine. A 21 gauge 7 cm needle was advanced through the skin and into the left basilic vein under live u ltrasound guidance. An ultrasound image was saved to PACS confirming access site. A .018 guide wire was then inserted through the needle and into the venous system. The needle was the removed and an 1 1 blade scalpel was used to make a 1cm skin incision. A 5 fr peel-away sheath was advanced over the wire and into the venous system. A measurement was then made using the existing wire and live fluoros copic guidance. The wire was then removed and the trimmed. The PICC was advanced through the peel-radha y sheath and into the venous system. The peel-away sheath was removed and the catheter was adhered to the patients arm with a stat lock. The catheter was then aspirated and flushed and a sterile bandage was placed over the access site. A fluoroscopic spot image was saved to PACS confirming the cathete r tip within the superior vena cava. IMPRESSION: SUCCESSFUL PLACEMENT OF A 5 FR DUAL LUMEN 55 CM PICC IN THE LEFT BASILIC VEIN. COMMENT: Patient medication list reviewed: Yes- Quality ID# 130:Eligible professional attests to doc umenting in the medical record they obtained, updated, or reviewed the patient's current medications. . Quality ID 145: Final reports for procedures using fluoroscopy that document radiation exposure tee fidel, or exposure time and number of fluorographic images (if radiation exposure indices are not avail able) Quality ID #76: The patient was prepped and draped using maximum sterile barrier technique including cap, mask, sterile gown, sterile gloves, a large sterile sheet, hand hygiene, and 2% Chlorhexidine fo r cutaneous antisepsis. When ultrasound is used, sterile ultrasound techniques are followed requiring sterile gel and sterile probes. TECHNICAL DOCUMENTATION: JOB ID: [id number] [employer]- All Rights Reserved rev-08/13 Reading location - IP/workstation name: [email or web address] [id number]
--- NOTE | 2017-11-01 15:04 | RADIOLOGY REPORT (SQ) ---
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 TECHNIQUE: Fluoroscopic and ultrasound guided PICC placement. LIMITATIONS: None. PROCEDURE: After written consent and assessment were obtained, the patient was brought into the fluo roscopy room and place supine on the table. Ultrasound evaluation of potential access sites were perf ormed. After successfully identifying a patent left basilic vein, the left arm was prepped and draped in a sterile fashion along with the ultrasound probe. The entry site was anesthetized with 1% lidoca ine. A 21 gauge 7 cm needle was advanced through the skin and into the left basilic vein under live u ltrasound guidance. An ultrasound image was saved to PACS confirming access site. A .018 guide wire was then inserted through the needle and into the venous system. The needle was the removed and an 1 1 blade scalpel was used to make a 1cm skin incision. A 5 fr peel-away sheath was advanced over the wire and into the venous system. A measurement was then made using the existing wire and live fluoros copic guidance. The wire was then removed and the trimmed. The PICC was advanced through the peel-radha y sheath and into the venous system. The peel-away sheath was removed and the catheter was adhered to the patients arm with a stat lock. The catheter was then aspirated and flushed and a sterile bandage was placed over the access site. A fluoroscopic spot image was saved to PACS confirming the cathete r tip within the superior vena cava. IMPRESSION: SUCCESSFUL PLACEMENT OF A 5 FR DUAL LUMEN 55 CM PICC IN THE LEFT BASILIC VEIN. COMMENT: Patient medication list reviewed: Yes- Quality ID# [id number]:Eligible professional attests to doc umenting in the medical record they obtained, updated, or reviewed the patient's current medications. . Quality ID 145: Final reports for procedures using fluoroscopy that document radiation exposure tee fidel, or exposure time and number of fluorographic images (if radiation exposure indices are not avail able) Quality ID #76: The patient was prepped and draped using maximum sterile barrier technique including cap, mask, sterile gown, sterile gloves, a large sterile sheet, hand hygiene, and 2% Chlorhexidine fo r cutaneous antisepsis. When ultrasound is used, sterile ultrasound techniques are followed requiring sterile gel and sterile probes. TECHNICAL DOCUMENTATION: JOB ID: [id number] [employer]- All Rights Reserved rev-08/13 Reading location - IP/workstation name: [email or web address] [id number]
--- NOTE | 2017-11-01 15:04 | RADIOLOGY REPORT (SQ) ---
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 TECHNIQUE: Fluoroscopic and ultrasound guided PICC placement. LIMITATIONS: None. PROCEDURE: After written consent and assessment were obtained, the patient was brought into the fluo roscopy room and place supine on the table. Ultrasound evaluation of potential access sites were perf ormed. After successfully identifying a patent left basilic vein, the left arm was prepped and draped in a sterile fashion along with the ultrasound probe. The entry site was anesthetized with 1% lidoca ine. A 21 gauge 7 cm needle was advanced through the skin and into the left basilic vein under live u ltrasound guidance. An ultrasound image was saved to PACS confirming access site. A .018 guide wire was then inserted through the needle and into the venous system. The needle was the removed and an 1 1 blade scalpel was used to make a 1cm skin incision. A 5 fr peel-away sheath was advanced over the wire and into the venous system. A measurement was then made using the existing wire and live fluoros copic guidance. The wire was then removed and the trimmed. The PICC was advanced through the peel-radha y sheath and into the venous system. The peel-away sheath was removed and the catheter was adhered to the patients arm with a stat lock. The catheter was then aspirated and flushed and a sterile bandage was placed over the access site. A fluoroscopic spot image was saved to PACS confirming the cathete r tip within the superior vena cava. IMPRESSION: SUCCESSFUL PLACEMENT OF A 5 FR DUAL LUMEN 55 CM PICC IN THE LEFT BASILIC VEIN. COMMENT: Patient medication list reviewed: Yes- Quality ID# 130:Eligible professional attests to doc umenting in the medical record they obtained, updated, or reviewed the patient's current medications. . Quality ID 145: Final reports for procedures using fluoroscopy that document radiation exposure tee fidel, or exposure time and number of fluorographic images (if radiation exposure indices are not avail able) Quality ID #76: The patient was prepped and draped using maximum sterile barrier technique including cap, mask, sterile gown, sterile gloves, a large sterile sheet, hand hygiene, and 2% Chlorhexidine fo r cutaneous antisepsis. When ultrasound is used, sterile ultrasound techniques are followed requiring sterile gel and sterile probes. TECHNICAL DOCUMENTATION: JOB ID: [id number] [employer]- All Rights Reserved rev-08/13 Reading location - IP/workstation name: [email or web address] [id number]
--- NOTE | 2017-11-01 15:49 | PDOC PROGRESS REPORT ---
Subjective Progress Note for:: 11/01/17 Subjective:: Mr. Neal is a 62-year-old male who was initially admitted for sepsis. Patient underwent debridement with bone biopsy and wound VAC placement on for his chronic nonhealing ulcer. No acute overnight. No fever or chills. He denies pain on his leg and right foot ulcer but he does have long-standing severe diabetic neuropathy. He denies any shortness of breath or chest pain. He is tolerating diet well. Reason For Visit: SEPSIS Physical Exam Vital Signs: Temp Pulse Resp BP Pulse Ox 97.5 F 55 L 20 152/59 H 98 11/01/17 12:00 11/01/17 12:00 11/01/17 12:00 11/01/17 12:00 11/01/17 12:00 Intake & Output 10/31/17 11/01/17 11/02/17 06:59 06:59 06:59 Intake Total 2625 2800 100 Output Total 1865 2500 Balance 760 300 100 Weight 340 lb 13.354 oz 350 lb 15.614 oz General appearance: PRESENT: no acute distress, well-developed, well-nourished Head exam: PRESENT: atraumatic, normocephalic Eye exam: PRESENT: conjunctiva pink, EOMI, PERRLA. ABSENT: scleral icterus Neck exam: ABSENT: carotid bruit, JVD, lymphadenopathy, thyromegaly Respiratory exam: PRESENT: clear to auscultation eliseo. ABSENT: rales, rhonchi, wheezes Cardiovascular exam: PRESENT: RRR. ABSENT: diastolic murmur, rubs, systolic murmur GI/Abdominal exam: PRESENT: normal bowel sounds, soft. ABSENT: distended, guarding, mass, organolmegaly, rebound, tenderness Rectal exam: PRESENT: deferred Extremities exam: PRESENT: other - wound vac in place Neurological exam: PRESENT: alert, awake, oriented to person, oriented to place , oriented to time, oriented to situation Psychiatric exam: PRESENT: appropriate affect, normal mood. ABSENT: homicidal ideation, suicidal ideation Results Laboratory Results: 10/30/17 04:12 10/31/17 06:29 Impressions: Chest X-Ray 10/28/17 04:50 IMPRESSION: No acute disease. Foot X-Ray 10/28/17 07:13 IMPRESSION: Swelling. Lower Extremity MRI 10/29/17 00:00 IMPRESSION: Calcaneal osteomyelitis Guidance Fluoroscopy 11/01/17 00:00 IMPRESSION: SUCCESSFUL PLACEMENT OF A 5 FR DUAL LUMEN 55 CM PICC IN THE LEFT BASILIC VEIN. Interventional Vascular Procedure 11/01/17 00:00 IMPRESSION: SUCCESSFUL PLACEMENT OF A 5 FR DUAL LUMEN 55 CM PICC IN THE LEFT BASILIC VEIN. PICC Line Insertion 11/01/17 00:00 IMPRESSION: SUCCESSFUL PLACEMENT OF A 5 FR DUAL LUMEN 55 CM PICC IN THE LEFT BASILIC VEIN. Assessment & Plan - Diagnosis (1) Sepsis Qualifiers: Sepsis type: sepsis due to unspecified organism Qualified Code(s): A41.9 - Sepsis, unspecified organism Is this a current diagnosis for this admission?: Yes Plan: Sepsis is secondary to osteomyelitis. Blood and wound cultures grew E. coli and Proteus. Vancomycin discontinued. Continue Zosyn. Will de-escalate antibiotics pending final culture and sensitivity results. Called lab, preliminary report for bone cultures will be out tomorrow. Follow-up on ID recommendations. (2) Non-healing ulcer of right foot Is this a current diagnosis for this admission?: Yes Plan: MRI showed calcaneal ostium mellitus. Patient is status post debridement and wound VAC placement. Will await for results of bone biopsy. Patient will need 6 weeks of IV antibiotics for osteomyelitis. Patient will get PICC line today. Called lab, preliminary report for bone cultures will be out tomorrow. Follow- up on ID recommendations. (3) Insulin dependent diabetes mellitus Is this a current diagnosis for this admission?: Yes Plan: Noted blood sugars overnight. Continue insulin NPH to 150 units at night. Continue insulin NPH 74 units before breakfast. Continue sliding scale. - Time Time Spent with patient: 25-34 minutes
--- NOTE | 2017-11-01 16:59 | Progress Note ---
Provider Note Provider Note: ID Consult Note Asked to review patient's chart. Pt not seen or examined. Mr. Neal is a 62 year old mean with DM, peripheral neuropathy, CAD s/p CABG, HTN and morbid obesity who presented on 10/28/17/with generalized weakness and malaise for 2 days. He has a chronic ulcer involving R heel for about 1 year and was appreciated as having some edema around it and some erythema involving the RLL. He had Tmax 100.2 F on day he presented, leukocytosis to 14k, and elevated lactic acid level. He had blood cultures drawn amd empiric vancomycin and Zosyn started. MRI showed changes c/w R calcaneal osteomyelitis adjacent to a chronic diabetic ulcer. On 10/29/17 he was taken to the OR for debridment of the R plantar ulcer down to the bone, bone biopsy and wound vac placement. Cultures were taken intraoperatively, which have E coli and Enterobacter cloacae in one specimen and E coli with a 2nd GNR that has yet to be identified in the bone biopsy culture. BCx on admission have since been reported as showing growth of GNR in 1 set pending identification and E coli and Proteus mirabilis in the other set. Vancomycin has since been discontinued. Polymicrobial Gram negative bacillary bacteremia secondary to R infected diabetic foot with osteomyelitis - s/p debridement of R heel plantar ulcer down to the bone with necrotic tissue around the ulcer removed and operative cultures from 10/30/17 showing growth of E coli and Enterobacter cloacae in one specimen and E coli and a 2nd GNR ( identification pending) in the bone sample sent to the lab - The Enterococcus that was cultured from a superficial wound swab prior to surgery on 10/28/17 reflects superficial contamination/colonization and a low organismal burden since it grew from broth only; superficial wound swabs are usually poor samples to base therapy on since they can show growth of superficial colonization that is not pathogenically invovled deeper in the tissues or fail to show growth of more fastidious organisms, and also Enterococcus in mixed nonsterile culture does not require dedicated therapy generally. - Recommend waiting for identification and susceptibilities of the GNR in blood culture from 10/28 and the 2nd GNR from the bone, both currently in process. If the patient's cultures are updated to reflect growth of all GNRs being susceptible to Cipro, he may be able to complete treatment with PO Cipro 750 mg BID. Cipro has good bone penetration and PO bioavailability. If anaerobes are cultured from the bone, PO Flagyl 500 mg BID would have to be added to this (typically Flagyl is dosed TID but long half life should support BID dosing). If there are no anaerobes cultured and all GNRs are susceptible to Cipro, transitioning from IV Zosyn to PO Cipro at discharge would allow the patient to complete treatment and not require the added cost and potential adverse effects of PICC line and outpatient IV antibiotics. If he is treated with PO Cipro, he would need to be instructed to avoid taking it at the same time as any multivalent cations (e.g. iron, calcium, zinc , magnesium containing products such as multivitamin with minerals or Tums). Such products could be held for the duration of treatment for osteomyelitis or would need to be scheduled so that they are several hours spaced apart from Cipro. If creatinine clearance drops to below <30, adjust dose of Cipro down, but based on current renal function 750 mg BID Cipro should be appropriate. - Anticipate pt should complete 6 weeks in duration of antibiotic therapy. Vishal Jewell MD [facility] Infectious Diseases pager [phone]
[2017-11-01] MEDS: ATORVASTATIN CALCIUM 40 MG TABLET PO SCH (21:41)
[2017-11-01] MEDS: TRAZODONE HCL 50 MG TABLET PO PRN (22:54)
[2017-11-02] MEDS: PIPERACILLIN SODIUM/TAZOBACTAM 3.375 GM in NORMAL SALINE 100 ML IV SCH ×3 (06:07→18:25)
[2017-11-02] MEDS: LANSOPRAZOLE 15 MG TAB.RAP.DR PO SCH ×2 (06:07→16:44)
[2017-11-02] MEDS: METOCLOPRAMIDE HCL 10 MG TABLET PO SCH ×3 (08:41→16:44)
[2017-11-02] MEDS: INSULIN NPH (ISOPHANE), HUMAN 100 UNIT/ML 3 ML SUBCUT SCH ×2 (08:41→16:43)
[2017-11-02] MEDS: ENOXAPARIN SODIUM INJ 40 MG/0.4 ML DISP.SYRIN SUBCUT SCH (10:14)
[2017-11-02] MEDS: FERROUS SULFATE 325 MG TABLET PO SCH (10:15)
[2017-11-02] MEDS: ATENOLOL 50 MG TABLET PO SCH ×2 (10:15→21:41)
[2017-11-02] MEDS: FUROSEMIDE 20 MG TABLET PO SCH ×2 (10:15→18:24)
[2017-11-02] MEDS: NYSTATIN TOPICAL POWDER 15 GM TP SCH ×2 (10:16→18:25)
[2017-11-02] MEDS: ASPIRIN 81 MG TABLET, ENT COATED PO SCH (10:16)
[2017-11-02 11:02] LABS: ABSOLUTE BASOPHILS # (AUTO) 0.1 10^3/uL (0.0-0.2); ABSOLUTE EOSINOPHILS # (AUTO) 0.2 10^3/uL (0.0-0.6); ABSOLUTE LYMPHOCYTES (AUTO) 1.6 10^3/uL (0.5-4.7); ABSOLUTE MONOCYTES (AUTO) 0.8 10^3/uL (0.1-1.4); ABSOLUTE NEUT (AUTO) 7.3 10^3/uL (1.7-8.2); BASOPHILS % (AUTO) 0.7 % (0-2); EOSINOPHILS % (AUTO) 2.2 % (0-6); HEMATOCRIT 26.4 % (37.9-51.0); HEMOGLOBIN 9.2 g/dL (13.5-17.0); LYMPHOCYTES % (AUTO) 15.9 % (13-45); MEAN CORPUSCULAR HEMOGLOBIN 29.2 pg (27.0-33.4); MEAN CORPUSCULAR HGB CONC 34.8 g/dL (32.0-36.0); MEAN CORPUSCULAR VOLUME 84 fl (80-97); MONOCYTES % (AUTO) 7.8 % (3-13); PLATELET COUNT 317 10^3/uL (150-450); RED BLOOD COUNT 3.15 10^6/uL (4.35-5.55); RED CELL DISTRIBUTION WIDTH 17.6 % (11.5-14.0); SEGMENTED NEUTROPHILS % (AUTO) 73.4 % (42-78); TOTAL CELLS COUNTED % (AUTO) 100 %
[2017-11-02 11:28] LABS: BLOOD UREA NITROGEN 28 mg/dL (7-20); CALCIUM 7.8 mg/dL (8.4-10.2); GLUCOSE 158 mg/dL (75-110)
[2017-11-02 11:29] LABS: ALANINE AMINOTRANSFERASE 37 U/L (21-72); ALBUMIN 3.3 g/dL (3.5-5.0); ALKALINE PHOSPHATASE 60 U/L (38-126); ANION GAP 13 (5-19); ASPARTATE AMINO TRANSFERASE 33 U/L (17-59); BILIRUBIN,DIRECT 0.3 mg/dL (0.0-0.4); BILIRUBIN,TOTAL 0.7 mg/dL (0.2-1.3); CARBON DIOXIDE 24 mmol/L (22-30); CHLORIDE 103 mmol/L (98-107); PHOSPHORUS 3.8 mg/dL (2.5-4.5); POTASSIUM 4.3 mmol/L (3.6-5.0); SODIUM 140.2 mmol/L (137-145); TOTAL PROTEIN 6.5 g/dL (6.3-8.2)
[2017-11-02] MEDS: INSULIN REG, HUMAN 100 UNIT/ML 3 ML VIAL (PYX) SUBCUT PRN ×2 (16:43→21:41)
[2017-11-02] MEDS: ATORVASTATIN CALCIUM 40 MG TABLET PO SCH (21:41)
[2017-11-02] MEDS: TRAZODONE HCL 50 MG TABLET PO PRN (21:41)
[2017-11-03] MEDS: PIPERACILLIN SODIUM/TAZOBACTAM 3.375 GM in NORMAL SALINE 100 ML IV SCH ×3 (00:24→11:21)
[2017-11-03] MEDS: LANSOPRAZOLE 15 MG TAB.RAP.DR PO SCH (05:18)
[2017-11-03] MEDS: METOCLOPRAMIDE HCL 10 MG TABLET PO SCH ×2 (07:59→11:21)
[2017-11-03] MEDS: INSULIN REG, HUMAN 100 UNIT/ML 3 ML VIAL (PYX) SUBCUT PRN ×2 (07:59→12:13)
[2017-11-03] MEDS: INSULIN NPH (ISOPHANE), HUMAN 100 UNIT/ML 3 ML SUBCUT SCH (08:02)
[2017-11-03] MEDS: ATENOLOL 50 MG TABLET PO SCH (10:09)
[2017-11-03] MEDS: FUROSEMIDE 20 MG TABLET PO SCH (10:09)
[2017-11-03] MEDS: ASPIRIN 81 MG TABLET, ENT COATED PO SCH (10:09)
[2017-11-03] MEDS: FERROUS SULFATE 325 MG TABLET PO SCH (10:09)
[2017-11-03] MEDS: ENOXAPARIN SODIUM INJ 40 MG/0.4 ML DISP.SYRIN SUBCUT SCH (10:10)
[2017-11-03] MEDS: NYSTATIN TOPICAL POWDER 15 GM TP SCH (10:12)
[2017-11-03 13:04] LABS: ABSOLUTE BASOPHILS # (AUTO) 0.1 10^3/uL (0.0-0.2); ABSOLUTE EOSINOPHILS # (AUTO) 0.2 10^3/uL (0.0-0.6); ABSOLUTE LYMPHOCYTES (AUTO) 1.5 10^3/uL (0.5-4.7); ABSOLUTE MONOCYTES (AUTO) 0.7 10^3/uL (0.1-1.4); ABSOLUTE NEUT (AUTO) 7.9 10^3/uL (1.7-8.2); BASOPHILS % (AUTO) 0.8 % (0-2); EOSINOPHILS % (AUTO) 1.6 % (0-6); HEMATOCRIT 24.5 % (37.9-51.0); HEMOGLOBIN 8.2 g/dL (13.5-17.0); LYMPHOCYTES % (AUTO) 14.7 % (13-45); MEAN CORPUSCULAR HEMOGLOBIN 28.3 pg (27.0-33.4); MEAN CORPUSCULAR HGB CONC 33.5 g/dL (32.0-36.0); MEAN CORPUSCULAR VOLUME 85 fl (80-97); MONOCYTES % (AUTO) 6.4 % (3-13); PLATELET COUNT 312 10^3/uL (150-450); RED CELL DISTRIBUTION WIDTH 17.9 % (11.5-14.0); SEGMENTED NEUTROPHILS % (AUTO) 76.5 % (42-78); TOTAL CELLS COUNTED % (AUTO) 100 %; WHITE BLOOD COUNT 10.3 10^3/uL (4.0-10.5)
[2017-11-03 13:06] LABS: ALANINE AMINOTRANSFERASE 34 U/L (21-72); ALKALINE PHOSPHATASE 53 U/L (38-126); ANION GAP 12 (5-19); ASPARTATE AMINO TRANSFERASE 24 U/L (17-59); BILIRUBIN,DIRECT 0.3 mg/dL (0.0-0.4); BILIRUBIN,TOTAL 0.6 mg/dL (0.2-1.3); BLOOD UREA NITROGEN 22 mg/dL (7-20); CALCIUM 7.8 mg/dL (8.4-10.2); CARBON DIOXIDE 26 mmol/L (22-30); CHLORIDE 102 mmol/L (98-107); GLUCOSE 142 mg/dL (75-110); POTASSIUM 3.9 mmol/L (3.6-5.0); SODIUM 139.8 mmol/L (137-145); TOTAL PROTEIN 6.1 g/dL (6.3-8.2)
--- NOTE | 2017-11-03 14:22 | PDOC TRANSFER SUMMARY ---
General - Admit/Disc Date/PCP Admission Date/Primary Care Provider: 10/29/17 11:14 Discharge Date: 11/03/17 - Discharge Diagnosis (1) Insulin dependent diabetes mellitus Is this a current diagnosis for this admission?: Yes (2) Non-healing ulcer of right foot Is this a current diagnosis for this admission?: Yes Summary: PT IS TO GO TO REHAB FACILITY FOR 6 WEEKS FOR ANTIBIOTIC THERAPY DUE TO WOUND VAC. WOUND VAC IS TO BE MANAGED BY WOUND CLINIC . WOUND VAC DRESSING ARE TO BE DONE BY REHAB FACILITY. CIPROFLOXACIN 750 MG PO BID FOR 6 WEEKS TOTAL. - Additional Information Resuscitation Status: Full Code Discharge Diet: Cardiac, Diabetic Discharge Activity: Activity As Tolerated Prescriptions: Ciprofloxacin HCl [Cipro 750 mg Tablet] 750 mg PO Q12 84 Days tablet Home Medications: Aspirin [Aspirin EC] 81 mg PO DAILY 10/28/17 Atenolol [Tenormin 50 mg Tablet] 50 mg PO Q12 10/28/17 Atorvastatin Calcium [Lipitor 40 mg Tablet] 40 mg PO QHS 10/28/17 Cranberry Fruit Extract [Cranberry] 300 mg PO DAILY 10/28/17 Furosemide [Lasix 20 mg Tablet] 20 mg PO BID 10/28/17 Insulin Regular, Human [Humulin R (Reg) Insulin 100 unit/mL] 28 unit SQ ACLUNCH 10/28/17 Insulin Regular, Human [Humulin R (Reg) Insulin 100 unit/mL] 86 unit SQ ACSUPPER 10/28/17 Insulin Regular, Human [Humulin R (Reg) Insulin 100 unit/mL] 96 unit SQ QAM 05/16 Iron 65 mg PO DAILY 10/28/17 Losartan Potassium [Cozaar 100 mg Tablet] 100 mg PO DAILY 10/28/17 Metoclopramide HCl [Reglan] 5 mg PO TID 10/28/17 NPH, Human Insulin Isophane [Humulin N (NPH) Insulin 100 unit/mL] 74 units SQ QAM 10/28/17 NPH, Human Insulin Isophane [Humulin N (NPH) Insulin 100 unit/mL] 150 unit SQ QHS 10/28/17 Omeprazole 20 mg PO BID 10/28/17 Potassium Chloride [Klor-Con 10 Meq Capsule ER] 10 mg PO DAILY 10/28/17 Ciprofloxacin HCl [Cipro 750 mg Tablet] 750 mg PO Q12 84 Days tablet 11/03/17 History of Present Illness Admission Date/PCP: 10/29/17 11:14 Hospital Course Hospital Course: Temp Pulse Resp BP Pulse Ox 97.4 F 59 L 17 143/53 H 95 11/02/17 11:15 11/02/17 11:15 11/02/17 11:15 11/02/17 11:15 11/02/17 11:15 Intake & Output 11/01/17 11/02/17 11/03/17 06:59 06:59 06:59 Intake Total 2800 1680 1175 Output Total 2500 2800 140 Balance 300 -1120 1035 Weight 350 lb 15.614 oz 351 lb 3.142 oz Patient is a 62-year-old male with past medical history of healing diabetic foot ulcer on the right foot, diabetes, hypertension. Patient came in with with complaints of fevers and chills and feeling weak difficulty ambulating. Patient was admitted by and an MRI was ordered and identified calcaneal osteomyelitis of the right calcaneum. Patient admitted with a diagnosis of sepsis diabetic foot ulcer osteomyelitis insulin-dependent diabetes mellitus started on antibiotics. Patient was started on vancomycin and Zosyn, vancomycin was discontinued to level and suspect patient's kidney injury related to the vancomycin. Patient was seen by general surgeon and had debridement of the right heel ulcer plantar area about 5 x 5 cm down to the bone 2.5 cm deep and a bone biopsy was done. Patient had a PICC line placed on 11/01/2017 for long-term antibiotics upon discharge. Infectious disease was consulted with recommendations for antibiotic. Based on ID recommendation pt to be discharged with PO Ciprofloxacin for 6 weeks. The enterococcus in culture seen was attributed to contamination pt seen today for d/c planning. states he is doing well and otherwise has not complaints. todays labs are stable. Physical Exam Vital Signs: Temp Pulse Resp BP Pulse Ox 97.4 F 59 L 17 143/53 H 95 11/02/17 11:15 11/02/17 11:15 11/02/17 11:15 11/02/17 11:15 11/02/17 11:15 Intake & Output 11/01/17 11/02/17 11/03/17 06:59 06:59 06:59 Intake Total 2800 1680 1175 Output Total 2500 2800 140 Balance 300 -1120 1035 Weight 350 lb 15.614 oz 351 lb 3.142 oz General appearance: PRESENT: no acute distress, disheveled, morbidly obese Head exam: PRESENT: atraumatic, normocephalic Eye exam: PRESENT: EOMI Ear exam: PRESENT: normal external ear exam Respiratory exam: PRESENT: clear to auscultation eliseo Cardiovascular exam: PRESENT: RRR GI/Abdominal exam: PRESENT: soft. ABSENT: distended, tenderness Extremities exam: PRESENT: +1 edema Neurological exam: PRESENT: alert, awake, oriented to person, oriented to place , CN II-XII grossly intact Psychiatric exam: PRESENT: appropriate affect Results Laboratory Results: 11/02/17 10:01 11/02/17 10:01 11/02/17 11/02/17 10:01 10:01 WBC 10.0 RBC 3.15 L Hgb 9.2 L Hct 26.4 L MCV 84 MCH 29.2 MCHC 34.8 RDW 17.6 H Plt Count 317 Seg Neutrophils % 73.4 Lymphocytes % 15.9 Monocytes % 7.8 Eosinophils % 2.2 Basophils % 0.7 Absolute Neutrophils 7.3 Absolute Lymphocytes 1.6 Absolute Monocytes 0.8 Absolute Eosinophils 0.2 Absolute Basophils 0.1 Sodium 140.2 Potassium 4.3 Chloride 103 Carbon Dioxide 24 Anion Gap 13 BUN 28 H Creatinine 1.43 H Est GFR ( Amer) > 60 Est GFR (Non-Af Amer) 50 L Glucose 158 H Calcium 7.8 L Phosphorus 3.8 Magnesium 2.0 Total Bilirubin 0.7 AST 33 ALT 37 Alkaline Phosphatase 60 Total Protein 6.5 Albumin 3.3 L 10/31/17 18:21 Nasophary ([facility] Only) MRSA Surveillance Culture - Final NO MRSA RECOVERED Impressions: Chest X-Ray 10/28/17 04:50 IMPRESSION: No acute disease. Foot X-Ray 10/28/17 07:13 IMPRESSION: Swelling. Lower Extremity MRI 10/29/17 00:00 IMPRESSION: Calcaneal osteomyelitis Guidance Fluoroscopy 11/01/17 00:00 IMPRESSION: SUCCESSFUL PLACEMENT OF A 5 FR DUAL LUMEN 55 CM PICC IN THE LEFT BASILIC VEIN. Interventional Vascular Procedure 11/01/17 00:00 IMPRESSION: SUCCESSFUL PLACEMENT OF A 5 FR DUAL LUMEN 55 CM PICC IN THE LEFT BASILIC VEIN. PICC Line Insertion 11/01/17 00:00 IMPRESSION: SUCCESSFUL PLACEMENT OF A 5 FR DUAL LUMEN 55 CM PICC IN THE LEFT BASILIC VEIN. Transfer Plan - Disposition Transfer Plan: PATIENT IS TO F/U WITH WOUND CLINIC IN 7-10 DAYS. FACILITY IS TO CHANGE WOUND VAC DRESSING EVERY 3 DAY. @[facility] IS ACCEPTING PHYSICIAN. - Time Spent with Patient Time spent with patient: Less than 30 Minutes - TRANSFER TO REHAB FACILITY ANTIBIOTICS. Qualifiers - * PATIENT BEING DISCHARGED WITH ANY OF THE FOLLOWING DIAGNOSIS: No Plan Discharge Plan: Pt is to be discharged today with po antibiotics. pt will Time Spent: Less than 30 Minutes
[2017-11-03] MEDS ORDERED: CIPROFLOXACIN HCL 750 MG TABLET PO SCH (15:00)
[2017-11-03 16:17] VITALS: BP 157/63
[2017-11-04] MEDS ORDERED: FERROUS SULFATE 325 MG TABLET PO SCH (12:00)
== END 2017-11-03 16:53 | DRG 854 ==
LOC: ER 03:05 → INTOOBSV 08:24 → UNDOADMOB 08:24 → EH 08:24 → 5 19:36 → OBSVTOIN 10-29 11:14
PROVIDERS: ADMIT Internal Medicine; ATTEND Internal Medicine
PROC: 0QBL0ZZ Excision of Right Tarsal, Open Approach (ICD-10-PCS; principal; 2017-10-29)
PROC: 02HV33Z Insertion of Infusion Device into Superior Vena Cava, Percutaneous Approach (ICD-10-PCS; 2017-11-01)
PROC: B518ZZA Fluoroscopy of Superior Vena Cava, Guidance (ICD-10-PCS; 2017-11-01)
PROC: B548ZZA Ultrasonography of Superior Vena Cava, Guidance (ICD-10-PCS; 2017-11-01)
DX: A41.9 Sepsis, unspecified organism (principal); L97.419 Non-pressure chronic ulcer of right heel and midfoot with unspecified severity; M86.9 Osteomyelitis, unspecified; Z68.43 Body mass index [BMI] 50.0-59.9, adult; E11.40 Type 2 diabetes mellitus with diabetic neuropathy, unspecified; E11.621 Type 2 diabetes mellitus with foot ulcer; E11.69 Type 2 diabetes mellitus with other specified complication; I25.10 Atherosclerotic heart disease of native coronary artery without angina pectoris; I10 Essential (primary) hypertension; B96.20 Unspecified Escherichia coli [E. coli] as the cause of diseases classified elsewhere; E66.01 Morbid (severe) obesity due to excess calories; Z95.1 Presence of aortocoronary bypass graft; Z79.82 Long term (current) use of aspirin; Z79.4 Long term (current) use of insulin; Z79.899 Other long term (current) drug therapy
CPT/HCPCS: 00400; 36415; 36569; 71045; 76937; 77001; 80048; 80053; 80202; 81001; 82803; 82962; 83605; 83690; 83735; 84100; 85025; 85027; 85652; 86140; 87040; 87070; 87075; 87077; 87086; 87186; 87205; 93005; 93010; C1769; G0378; G8978-GP; G8979-GP; J1642; J1644; J1650; J1815; J2250; J2405; J2543; J2704; J3010; J3370; J3490; J7030; J7040; J7060

== ENCOUNTER → 2017-11-16 | Outpatient (CLI) | payer MEDICARE ==
--- NOTE | 2017-11-17 08:07 | XCELERA REPORT ---
[address] [address] Lower Extremity Arterial Evaluation Name: FAVIO JEFFRIES Age: 62 yrs Gender: Male : 1955 Patient Status: Outpatient Patient Location: Study Date: 11/16/2017 11:02 AM Procedure: A color flow and duplex scan of the lower extremity arteries was performed bilaterally with velocity and waveform anaylsis. Reason For Study: ULCER Ordering Physician: YAKOV VALDES Performed By: Barbara Chen Measurements and Calculations Right Left LAUNDRY ROUTEMAN PSV 163.0 147.6 cm/sec Prox PFA PSV -81.0 125.7 cm/sec Prox SFA PSV 127.8 125.7 cm/sec Mid SFA PSV -193.1 -146.9cm/sec Dist SFA PSV -197.6 -154.5cm/sec Prox Pop A PSV 136.7 104.3 cm/sec Prox CASSY PSV -133.4 52.7 cm/sec Dist SCALE CLERK PSV 136.5 cm/sec Reinier Pedis PSV -160.6 -121.5cm/sec Right Side Arterial Evaluation Normal velocity and triphasic waveforms noted from the Common Femoral artery to the infrageniculate vessels. Biphasic Dorsalis Pedis. 0-19% stenosis at the Dorsalis Pedis. Ankle Brachial index not done due to severe edema.. Left Side Arterial Evaluation Normal velocity and triphasic waveforms noted from the Common Femoral artery to the Anterior Tibial artery. Posterior Tibial not seen. 0 % stenosis . Ankle Brachial index not done due to severe edema.. Interpretation Summary No hemodynamically significant lesions in the right lower extremity only, on duplex imaging, at rest. No hemodynamically significant lesions in the left lower extremity only, on duplex imaging, at rest. Important to note that the Posterior Tibial artery ob the left was not seen. No opinion can be given on its patency. : YAKOV VALDES > Reginald River
== END ==
LOC: SP 10:45
PROVIDERS: ATTEND Preventive Medicine Undersea and Hyperbaric Medicine
DX: L97.412 Non-pressure chronic ulcer of right heel and midfoot with fat layer exposed (principal)
CPT/HCPCS: 93925

== ENCOUNTER 2018-01-10 12:50 | Inpatient (IN) | payer MEDICAID, MEDICARE ==
--- NOTE | 2018-01-10 13:26 | ER Document Report ---
ED General - General Chief Complaint: Wound Infection Stated Complaint: POSSIBLE ABSCESS Time Seen by Provider: 01/10/18 13:22 Mode of Arrival: Wheelchair Information source: Patient Notes: 62-year-old male presents to the emergency department with complaints of a worsening diabetic ulcer on the right heel. Patient states that 2 months ago he was admitted to the hospital for sepsis and osteomyelitis. Patient states that he was discharged to a rehabilitation facility. He states that he is recently been discharged home. He follows up at wound care every Wednesday. Patient states that he also has a home health care nurse that visits daily. Home health care nurse told him that the wound was looking worse today. She noticed increased erythema and drainage. Patient states that he has not been on antibiotics for the last 2 weeks. He is not sure with the last antibiotic he was on was. Patient states that his physician recommended going in a hyperbaric chamber for treatment of the infection. Patient states that he has an appointment this to discuss the plan of care. Patient denies any fever. He does have a history of diabetes and states that his blood sugars been running in the 300s. I have greeted and performed a rapid initial assessment of this patient. A comprehensive ED assessment and evaluation of the patient, analysis of test results and completion of the medical decision making process will be conducted by additional ED providers. PHYSICAL EXAMINATION: GENERAL: Well-appearing, well-nourished and in no acute distress. HEAD: Atraumatic, normocephalic. EYES: Pupils equal round extraocular movements intact, conjunctiva are normal. ENT: Nares patent NECK: Normal range of motion LUNGS: No respiratory distress Musculoskeletal: Normal range of motion. Ulceration to the right heel. Yellow purulent drainage. 2+ dorsalis pedis and posterior tibialis pulse. NEUROLOGICAL: Normal speech. PSYCH: Normal mood, normal affect. SKIN: Warm, Dry, normal turgor, no rashes or lesions noted. TRAVEL OUTSIDE OF THE [place] IN LAST 30 DAYS: No - Related Data Allergies/Adverse Reactions: lisinopril Allergy (Verified 01/10/18 12:51) Past Medical History - Social History Smoking Status: Never Smoker Chew tobacco use (# tins/day): No Frequency of alcohol use: None Drug Abuse: None Family History: Reviewed & Not Pertinent Patient has suicidal ideation: No Patient has homicidal ideation: No - Past Medical History Cardiac Medical History: Reports: Hx Coronary Artery Disease, Hx Hypertension Endocrine Medical History: Reports: Hx Diabetes Mellitus Type 2 Renal/ Medical History: Denies: Hx Peritoneal Dialysis GI Medical History: Reports: Hx Gastroesophageal Reflux Disease, Hx Ulcer Musculoskeletal Medical History: Reports Hx Arthritis Psychiatric Medical History: Reports: Hx Depression Past Surgical History: Reports: Hx Appendectomy, Hx Cardiac Surgery, Hx Cholecystectomy, Hx Coronary Artery Bypass Graft - Immunizations Immunizations up to date: Yes Hx Diphtheria, Pertussis, Tetanus Vaccination: Yes Physical Exam - Vital signs Vitals: Temp Pulse Resp BP Pulse Ox 98.1 F 67 18 154/59 H 99 01/10/18 13:00 01/10/18 13:00 01/10/18 13:00 01/10/18 13:00 01/10/18 13:00 Course - Vital Signs Vital signs: Temp Pulse Resp BP Pulse Ox 98.1 F 67 18 154/59 H 99 01/10/18 13:00 01/10/18 13:00 01/10/18 13:00 01/10/18 13:00 01/10/18 13:00 Discharge - Discharge Referrals: ANA PAULA PULLIAM MD [Primary Care Provider] - Follow up as needed
[2018-01-10 14:00] LABS: ABSOLUTE BASOPHILS # (AUTO) 0.1 10^3/uL (0.0-0.2); ABSOLUTE EOSINOPHILS # (AUTO) 0.1 10^3/uL (0.0-0.6); ABSOLUTE LYMPHOCYTES (AUTO) 0.9 10^3/uL (0.5-4.7); ABSOLUTE MONOCYTES (AUTO) 0.5 10^3/uL (0.1-1.4); ABSOLUTE NEUT (AUTO) 9.2 10^3/uL (1.7-8.2); BASOPHILS % (AUTO) 0.8 % (0-2); EOSINOPHILS % (AUTO) 1.2 % (0-6); HEMATOCRIT 28.8 % (37.9-51.0); HEMOGLOBIN 9.4 g/dL (13.5-17.0); LYMPHOCYTES % (AUTO) 8.5 % (13-45); MEAN CORPUSCULAR HEMOGLOBIN 26.6 pg (27.0-33.4); MEAN CORPUSCULAR HGB CONC 32.7 g/dL (32.0-36.0); MEAN CORPUSCULAR VOLUME 81 fl (80-97); MONOCYTES % (AUTO) 4.5 % (3-13); PLATELET COUNT 292 10^3/uL (150-450); RED BLOOD COUNT 3.55 10^6/uL (4.35-5.55); RED CELL DISTRIBUTION WIDTH 18.4 % (11.5-14.0); TOTAL CELLS COUNTED % (AUTO) 100 %; WHITE BLOOD COUNT 10.8 10^3/uL (4.0-10.5)
--- NOTE | 2018-01-10 14:18 | RADIOLOGY REPORT (SQ) ---
EXAM DESCRIPTION: FOOT RIGHT COMPLETE COMPLETED DATE/TIME: 01/10/2018 2:01 pm REASON FOR STUDY: diabetic ulcer- osteomyelitis COMPARISON: 10/28/2017 NUMBER OF VIEWS: Three views. TECHNIQUE: AP, lateral and oblique radiographic images acquired of the right foot. LIMITATIONS: None. FINDINGS: MINERALIZATION: Normal. BONES: External support device obscures osseous detail somewhat. Cortical irregularity and lucency along the plantar aspect of the distal calcaneus adjacent to the ulcer. These findings suggest osteo myelitis. Prominent calcaneal spurs. Degenerative changes at the first metatarsophalangeal joint. JOINTS: No effusions. SOFT TISSUES: Soft tissue injury at the posterior aspect of the heel correlates with the patient's k nown ulcer. Decrease in the soft tissue swelling at the right ankle and foot since the prior study. Soft tissue vascular calcifications. Surgical metallic clips medial aspect of the ankle, stable fin dings. OTHER: No other significant finding. IMPRESSION: 1. Soft tissue injury along the plantar aspect of the distal calcaneus likely consisten t with the patient's known ulcer. The findings as detailed above suggest osteomyelitis involving the plantar aspect of the distal calcaneus. 2. Persistent soft tissue swelling foot and ankle with decrease since the prior study. TECHNICAL DOCUMENTATION: JOB ID: [id number] [employer]- All Rights Reserved Reading location - IP/workstation name: [email or web address]
[2018-01-10 14:19] LABS: ALANINE AMINOTRANSFERASE 18 U/L (21-72); ALBUMIN 3.7 g/dL (3.5-5.0); ALKALINE PHOSPHATASE 85 U/L (38-126); ANION GAP 14 (5-19); ASPARTATE AMINO TRANSFERASE 12 U/L (17-59); BILIRUBIN,DIRECT 0.3 mg/dL (0.0-0.4); BILIRUBIN,TOTAL 0.9 mg/dL (0.2-1.3); BLOOD UREA NITROGEN 41 mg/dL (7-20); CALCIUM 8.5 mg/dL (8.4-10.2); CARBON DIOXIDE 29 mmol/L (22-30); CHLORIDE 93 mmol/L (98-107); GLUCOSE 249 mg/dL (75-110); POTASSIUM 5.3 mmol/L (3.6-5.0); SODIUM 135.7 mmol/L (137-145); TOTAL PROTEIN 7.6 g/dL (6.3-8.2)
[2018-01-10] MEDS ORDERED: VANCOMYCIN HCL INJ 1000 MG VIAL IV ONE (15:04)
[2018-01-10] MEDS ORDERED: PIPERACILLIN/TAZOBACTAM 3.375 GM VIAL IV ONE (15:04)
--- NOTE | 2018-01-10 15:08 | ER Document Report ---
ED General - General Chief Complaint: Wound Infection Stated Complaint: POSSIBLE ABSCESS Time Seen by Provider: 01/10/18 13:22 Mode of Arrival: Wheelchair Information source: Patient Notes: This is a 62-year-old diabetic man with a history of a right heel ulcer that presents to the emergency room with worsening drainage, increased swelling and increased redness to the foot. Patient denies any obvious fevers. TRAVEL OUTSIDE OF THE [place] IN LAST 30 DAYS: No - HPI Onset: Last week Onset/Duration: Gradual Quality of pain: No pain Severity: None Pain Level: Denies Associated symptoms: denies: Chest pain, Fever, Shortness of breath Exacerbated by: Denies Relieved by: Denies Similar symptoms previously: Yes Recently seen / treated by doctor: Yes - Related Data Allergies/Adverse Reactions: lisinopril Allergy (Verified 01/10/18 12:51) Past Medical History - General Information source: Patient - Social History Smoking Status: Never Smoker Cigarette use (# per day): No Chew tobacco use (# tins/day): No Frequency of alcohol use: None Drug Abuse: None Lives with: Family Family History: Reviewed & Not Pertinent Patient has suicidal ideation: No Patient has homicidal ideation: No - Past Medical History Cardiac Medical History: Reports: Hx Coronary Artery Disease, Hx Hypertension Endocrine Medical History: Reports: Hx Diabetes Mellitus Type 2 Renal/ Medical History: Denies: Hx Peritoneal Dialysis GI Medical History: Reports: Hx Gastroesophageal Reflux Disease, Hx Ulcer Musculoskeletal Medical History: Reports Hx Arthritis Psychiatric Medical History: Reports: Hx Depression Past Surgical History: Reports: Hx Appendectomy, Hx Cardiac Surgery, Hx Cholecystectomy, Hx Coronary Artery Bypass Graft - Immunizations Immunizations up to date: Yes Hx Diphtheria, Pertussis, Tetanus Vaccination: Yes Review of Systems - Review of Systems Constitutional: denies: Chills, Fever EENT: No symptoms reported Cardiovascular: No symptoms reported Respiratory: No symptoms reported Gastrointestinal: No symptoms reported Genitourinary: No symptoms reported Male Genitourinary: No symptoms reported Musculoskeletal: See HPI Skin: See HPI Hematologic/Lymphatic: No symptoms reported Neurological/Psychological: No symptoms reported Physical Exam - Vital signs Vitals: Temp Pulse Resp BP Pulse Ox 98.1 F 67 18 154/59 H 99 01/10/18 13:00 01/10/18 13:00 01/10/18 13:00 01/10/18 13:00 01/10/18 13:00 Notes: Physical exam: GENERAL: Patient is alert and oriented x3 HEAD: Atraumatic, normocephalic. EYES: Pupils equal round and reactive to light, extraocular movements intact, sclera anicteric, conjunctiva are normal. ENT: TMs normal, nares patent, oropharynx clear without exudates. Moist mucous membranes. NECK: Normal range of motion, supple without obvious mass or JVD. LUNGS: Breath sounds clear to auscultation bilaterally and equal. No wheezes rales or rhonchi. HEART: Regular rate and rhythm without murmurs, rubs or gallops. ABDOMEN: Soft, normoactive bowel sounds. No tenderness to palpation. No guarding, no rebound. No masses appreciated. EXTREMITIES: Infected right diabetic foot with erythema, pus drainage, foul smell. The ulcer is over the calcaneus and erythema is over the whole heel of the foot. NEUROLOGICAL: Cranial nerves II through XII grossly intact. Normal speech, moving all extremities. PSYCH: Normal mood, normal affect. SKIN: Right calcaneus is erythematous with swelling and discharge from a previous heel ulcer. The erythema spreads over the calcaneus. Course - Re-evaluation Re-evalutation: 01/10/18 16:32 Note: This is a patient with diabetes and congestive heart failure that presents with an infected diabetic foot and evidence of osteomyelitis. From a clinical standpoint, the patient does not have sepsis. IV antibiotics have been started. Vigorous IV hydration is not indicated at this time due to concerns of his underlying heart function and concerns for congestive heart failure. - Vital Signs Vital signs: Temp Pulse Resp BP Pulse Ox 99.3 F 72 20 138/56 H 98 01/10/18 19:20 01/10/18 19:20 01/10/18 19:20 01/10/18 19:20 01/10/18 19:20 - Laboratory Result Diagrams: 01/10/18 13:37 01/10/18 13:37 Laboratory results interpreted by me: 01/10/18 01/10/18 01/10/18 13:37 13:37 15:00 WBC 10.8 H RBC 3.55 L Hgb 9.4 L Hct 28.8 L MCH 26.6 L RDW 18.4 H Seg Neutrophils % 85.0 H Lymphocytes % 8.5 L Absolute Neutrophils 9.2 H Sodium 135.7 L Potassium 5.3 H Chloride 93 L BUN 41 H Creatinine 1.47 H Est GFR ( Amer) 59 L Est GFR (Non-Af Amer) 49 L Glucose 249 H Lactic Acid 2.3 H AST 12 L ALT 18 L - Diagnostic Test Radiology reviewed: Image reviewed, Reports reviewed - X-rays show possible osteo-of the calcaneus Discharge - Discharge Clinical Impression: Infected diabetic foot, Osteomyelitis Condition: Stable Disposition: ADMITTED INPATIENT Admitting Provider: Mary Unit Admitted: Telemetry
[2018-01-10 15:24] LABS: VENOUS BLOOD BASE EXCESS 4.7 mmol/L; VENOUS BLOOD HCO3 31.4 mmol/L (20-32); VENOUS BLOOD PCO2 54.3 mmHg (35-63); VENOUS BLOOD PH 7.38 (7.30-7.42)
[2018-01-10] MEDS ORDERED: ACETAMINOPHEN 325 MG TABLET PO PRN (16:15)
[2018-01-10] MEDS ORDERED: OXYCODONE-ACETAMINOPHEN 5-325 MG TABLET PO PRN (16:15)
[2018-01-10] MEDS ORDERED: VANCOMYCIN HCL 0 MG in DEXTROSE 5%-WATER 250 ML IV NR (16:30)
[2018-01-10] MEDS ORDERED: DEXTROSE 40% GEL 15 GM TUBE PO PRN (16:42)
[2018-01-10] MEDS ORDERED: GLUCAGON,HUMAN RECOMB 1 MG INJ IM PRN (16:42)
[2018-01-10] MEDS ORDERED: DEXTROSE 50%-WATER SYRINGE 25 GM/50 ML DOSE IV PRN (16:42)
[2018-01-10] MEDS ORDERED: DEXTROSE 40% GEL 15 GM TUBE X 2 PO PRN (16:42)
[2018-01-10] MEDS ORDERED: DEXTROSE 50%-WATER SYRINGE 12.5 GM/25 ML DOSE IV PRN (16:42)
--- NOTE | 2018-01-10 17:02 | PDOC H&P ---
History of Present Illness Admission Date/PCP: 01/10/18 15:16 ANA PAULA PULLIAM Patient complains of: Worsening diabetic right ulcer- with drainage and redness. History of Present Illness: FAVIO JEFFRIES is a 62 year old male with hx of DM2/Hypertension/Hyperlipidemia/ CHF/CAD s.p CABG/CKD 3/GERD/Fe def. anemia/Osteoarthritis. who was discharged from [facility] in 10/2017 for sepsis and infected DM foot ulcer and sent to [facility] for REHAB. He has been following up with [facility] wound clinic and was seen there today and he was sent over to ER for worsening right foot ulcer with increasing drainage and redness with swelling. Xray right foot confirmed osteomyelitis of right calcaneus. He is being admitted to telemetry floor for mgt. Past Medical History Cardiac Medical History: Reports: Coronary Artery Disease, Hypertension Endocrine Medical History: Reports: Diabetes Mellitus Type 2 GI Medical History: Reports: Gastroesophageal Reflux Disease Musculoskeltal Medical History: Reports: Arthritis Psychiatric Medical History: Reports: Depression Hematology: Reports: Anemia Past Surgical History Past Surgical History: Reports: Appendectomy, Cholecystectomy, Coronary Artery Bypass Graft Social History Smoking Status: Never Smoker Family History Family History: Reviewed & Not Pertinent Parental Family History Reviewed: Yes Children Family History Reviewed: Yes Sibling(s) Family History Reviewed.: Yes Medication/Allergy Home Medications: Aspirin [Aspirin 81 mg Chewable Tablet] 81 mg PO DAILY 01/10/18 Atenolol [Tenormin] 100 mg PO DAILY 01/10/18 Atorvastatin Calcium [Lipitor 40 mg Tablet] 40 mg PO QHS 01/10/18 Citalopram Hydrobromide [Celexa 20 mg Tablet] 20 mg PO DAILY 01/10/18 Cranberry Conc/Ascorbic Acid [Cranberry Concentrate Softgel] 1 each PO DAILY Furosemide [Lasix 20 mg Tablet] 20 mg PO BID 01/10/18 Insulin Aspart [Novolog Insulin 100 Unit/1 ml 10 ml] 10 unit SQ AC 01/10/18 Insulin Glargine,Hum.rec.anlog [Lantus] 40 unit SQ Q12 01/10/18 Losartan Potassium [Cozaar] 100 mg PO DAILY 01/10/18 Metformin HCl [Glucophage] 500 mg PO BIDACBS 01/10/18 Metoclopramide HCl [Reglan] 5 mg PO TID 01/10/18 Metolazone [Zaroxolyn 5 Mg Tablet] 5 mg PO DAILY 01/10/18 Omeprazole 20 mg PO DAILY 01/10/18 Potassium Chloride [K-Tab ER] 20 meq PO DAILY 01/10/18 Allergies/Adverse Reactions: lisinopril Allergy (Verified 01/10/18 12:51) Review of Systems Constitutional: PRESENT: as per HPI Eyes: PRESENT: as per HPI Ears: PRESENT: as per HPI Nose, Mouth, and Throat: PRESENT: as per HPI Breasts: PRESENT: as per HPI Cardiovascular: PRESENT: as per HPI Respiratory: PRESENT: as per HPI Gastrointestinal: PRESENT: as per HPI Genitourinary: PRESENT: as per HPI Musculoskeletal: PRESENT: joint swelling - Right foot painful swelling, worsening drainage and redness of right foot. Integumentary: PRESENT: as per HPI Neurological: PRESENT: as per HPI Psychiatric: PRESENT: as per HPI Endocrine: PRESENT: as per HPI Hematologic/Lymphatic: PRESENT: as per HPI Physical Exam Vital Signs: Temp Pulse Resp BP Pulse Ox 98.1 F 67 18 154/59 H 99 01/10/18 13:00 01/10/18 13:00 01/10/18 13:00 01/10/18 13:00 01/10/18 13:00 General appearance: PRESENT: no acute distress, cooperative, well-developed, well-nourished Head exam: PRESENT: atraumatic, normocephalic Eye exam: PRESENT: EOMI, PERRLA Ear exam: PRESENT: normal external ear exam Mouth exam: PRESENT: moist, neck supple, tongue midline Neck exam: PRESENT: full ROM Respiratory exam: PRESENT: clear to auscultation eliseo, symmetrical Cardiovascular exam: PRESENT: +S1, +S2 Pulses: PRESENT: +2 pedal pulses bilateral GI/Abdominal exam: PRESENT: normal bowel sounds, soft Rectal exam: PRESENT: deferred Extremities exam: PRESENT: tenderness Additional comments: Tender, swollen right foot, with ulcer with induration and erythema, warm with serosanguinous draniage. Musculoskeletal exam: PRESENT: full ROM Neurological exam: PRESENT: alert, awake, oriented to person, oriented to place , oriented to time Psychiatric exam: PRESENT: normal mood Results Impressions: Foot X-Ray 01/10/18 13:22 IMPRESSION: 1. Soft tissue injury along the plantar aspect of the distal calcaneus likely consistent with the patient's known ulcer. The findings as detailed above suggest osteomyelitis involving the plantar aspect of the distal calcaneus. 2. Persistent soft tissue swelling foot and ankle with decrease since the prior study. Assessment & Plan - Diagnosis (1) Osteomyelitis of right foot Qualifiers: Osteomyelitis type: unspecified type Qualified Code(s): M86.9 - Osteomyelitis, unspecified Is this a current diagnosis for this admission?: Yes Plan: Ct with Zosyn 2.25 g q6h IV; Vancomycon IV as per [facility] protocol;Ct with Tylenol 650 mg q4h po prn. F/u Gen. surgical consult for mgt; f/u wound culture and blood cultures. (2) Diabetic foot ulcer Qualifiers: Diabetes mellitus type: type 2 Laterality: right Is this a current diagnosis for this admission?: Yes Plan: Ct with Zosyn 2.25 g q6h IV; Vancomycin IV as per OM protocol; F/u Tylenol 650 mg q4h prn po; F/U wound culture and blood cultures; f/u Gen. surgical consult for mgt. (3) Diabetes mellitus type 2 in nonobese Is this a current diagnosis for this admission?: Yes Plan: Ct with Lantus 40 iu BID subcut; Humalog 10 iu QAC;Accucheck QAC, QHS with slidding scale with humalog insulin as per [facility] protocol.1800 calorie ADA diet.Hold Metformin 500 mg BID for now. (4) Hypertension Qualifiers: Hypertension type: essential hypertension Qualified Code(s): I10 - Essential (primary) hypertension Is this a current diagnosis for this admission?: Yes Plan: Ct with Losartan 100 mg qd pO; Atenolol 100 mg qd PO; 2g sodium diet. (5) Hyperlipidemia Qualifiers: Hyperlipidemia type: mixed hyperlipidemia Qualified Code(s): E78.2 - Mixed hyperlipidemia Is this a current diagnosis for this admission?: Yes Plan: Ct with Atorvastatin 40 mg qhs po; 200 mg cholesterol diet. (6) Chronic diastolic CHF (congestive heart failure) Is this a current diagnosis for this admission?: Yes Plan: Ct with Lasix 20 mg BID PO; Metolazone 5 mg qd pO; KCL 20 MEQ qd po; strict input/output chart; Daily weight;Monitor chemistries daily. (7) CAD (coronary artery disease) of artery bypass graft Is this a current diagnosis for this admission?: Yes Plan: Ct with Aspirin 81 mg qd po; cardiac diet. (8) GERD (gastroesophageal reflux disease) Is this a current diagnosis for this admission?: Yes Plan: Ct with Prevacid 30 mg qd po since we do not have Omeprazole in our formulary. (9) Fe deficiency anemia Qualifiers: Iron deficiency anemia type: unspecified iron deficiency Qualified Code(s) : D50.9 - Iron deficiency anemia, unspecified Is this a current diagnosis for this admission?: Yes Plan: Ct with FeSO4 325 mg BID po; monitor CBC daily. (10) Depression Qualifiers: Depression Type: unspecified Qualified Code(s): F32.9 - Major depressive disorder, single episode, unspecified Is this a current diagnosis for this admission?: Yes Plan: Ct with Celexa 20 mg qd po. (11) DVT prophylaxis Is this a current diagnosis for this admission?: Yes Plan: Ct with Heparin 5000iu subcut q8h; SCD. - Time Time Spent: 30 to 50 Minutes Medications reviewed and adjusted accordingly: Yes Anticipated discharge: Home Within: within 72 hours - Inpatient Certification Medical Necessity: Failure to Improve With Outpatient Therapy, Significant Comorbidiites Make Outpatient Treatment Too Risky, Need Close Monitoring Due to Risk of Patient Decompensation, Need For Continuous Telemetry Monitoring, Need for Pain Control, Need for IV Antibiotics, Need for Surgery, Risk of Complication if Not Cared For in Hospital, Risk of Diagnosis Which Will Require Inpatient Eval/Care/Monitoring
[2018-01-10] MEDS: FERROUS SULFATE 325 MG TABLET PO SCH (19:27)
[2018-01-10] MEDS: FUROSEMIDE 20 MG TABLET PO SCH (19:27)
[2018-01-10] MEDS: VANCOMYCIN HCL 1,000 MG in DEXTROSE 5%-WATER 250 ML IV SCH (20:16)
[2018-01-10] MEDS: HEPARIN SOD (PORCINE) 5,000 UNIT/ML 1 ML SYRINGE SUBCUT SCH (21:25)
[2018-01-10] MEDS: ATORVASTATIN CALCIUM 40 MG TABLET PO SCH (21:25)
[2018-01-10] MEDS: INSULIN GLARGINE,HUM.REC.ANLOG 1,000 UNIT/10 ML UNIT SUBCUT SCH (22:44)
[2018-01-11] MEDS: LANSOPRAZOLE 30 MG TAB.RAP.DR PO SCH (05:17)
[2018-01-11] MEDS: HEPARIN SOD (PORCINE) 5,000 UNIT/ML 1 ML SYRINGE SUBCUT SCH ×3 (05:17→22:25)
[2018-01-11 05:40] LABS: ABSOLUTE BASOPHILS # (AUTO) 0.1 10^3/uL (0.0-0.2); ABSOLUTE LYMPHOCYTES (AUTO) 0.9 10^3/uL (0.5-4.7); ABSOLUTE MONOCYTES (AUTO) 0.8 10^3/uL (0.1-1.4); BASOPHILS % (AUTO) 0.5 % (0-2); EOSINOPHILS % (AUTO) 0.4 % (0-6); HEMATOCRIT 22.9 % (37.9-51.0); LYMPHOCYTES % (AUTO) 9.5 % (13-45); MEAN CORPUSCULAR HEMOGLOBIN 27.4 pg (27.0-33.4); MEAN CORPUSCULAR HGB CONC 34.5 g/dL (32.0-36.0); MEAN CORPUSCULAR VOLUME 80 fl (80-97); MONOCYTES % (AUTO) 8.1 % (3-13); PLATELET COUNT 226 10^3/uL (150-450); RED BLOOD COUNT 2.88 10^6/uL (4.35-5.55); SEGMENTED NEUTROPHILS % (AUTO) 81.5 % (42-78); TOTAL CELLS COUNTED % (AUTO) 100 %; WHITE BLOOD COUNT 9.8 10^3/uL (4.0-10.5)
[2018-01-11 05:44] LABS: HEMOGLOBIN 7.9 g/dL (13.5-17.0)
[2018-01-11 05:56] LABS: ALANINE AMINOTRANSFERASE 16 U/L (21-72); ALKALINE PHOSPHATASE 71 U/L (38-126); ANION GAP 11 (5-19); ASPARTATE AMINO TRANSFERASE 11 U/L (17-59); BILIRUBIN,DIRECT 0.2 mg/dL (0.0-0.4); BILIRUBIN,TOTAL 0.9 mg/dL (0.2-1.3); BLOOD UREA NITROGEN 42 mg/dL (7-20); CALCIUM 7.9 mg/dL (8.4-10.2); CARBON DIOXIDE 27 mmol/L (22-30); CHLORIDE 94 mmol/L (98-107); CHOLESTEROL 109.13 mg/dL (0-200); GLUCOSE 192 mg/dL (75-110); POTASSIUM 4.8 mmol/L (3.6-5.0); SODIUM 132.4 mmol/L (137-145); TOTAL PROTEIN 6.4 g/dL (6.3-8.2); TRIGLYCERIDES 197 mg/dL (<150)
[2018-01-11 06:07] LABS: DIRECT LDL 48 mg/dL (<100)
[2018-01-11 06:11] LABS: VLDL CHOLESTEROL 39.4 mg/dL (10-31)
[2018-01-11 06:44] LABS: HEMATOCRIT 23.5 % (37.9-51.0); MEAN CORPUSCULAR HEMOGLOBIN 26.7 pg (27.0-33.4); MEAN CORPUSCULAR HGB CONC 33.3 g/dL (32.0-36.0); MEAN CORPUSCULAR VOLUME 80 fl (80-97); PLATELET COUNT 225 10^3/uL (150-450); RED BLOOD COUNT 2.94 10^6/uL (4.35-5.55); RED CELL DISTRIBUTION WIDTH 18.2 % (11.5-14.0); WHITE BLOOD COUNT 9.4 10^3/uL (4.0-10.5)
[2018-01-11 06:46] LABS: HEMOGLOBIN 7.8 g/dL (13.5-17.0)
[2018-01-11] MEDS ORDERED: FUROSEMIDE INJ/PF 20 MG/2 ML SDV IV PRN (07:45)
[2018-01-11] MEDS: INSULIN LISPRO 100 UNIT/ML 3 ML VIAL SUBCUT SCH ×3 (08:24→17:35)
[2018-01-11] MEDS: INSULIN LISPRO 100 UNIT/ML 3 ML VIAL SUBCUT PRN ×4 (08:25→22:24)
[2018-01-11] MEDS: VANCOMYCIN HCL 1,000 MG in DEXTROSE 5%-WATER 250 ML IV SCH ×2 (08:28→22:43)
[2018-01-11] MEDS ORDERED: METOLAZONE 5 MG TABLET PO SCH (10:00)
[2018-01-11] MEDS: INSULIN GLARGINE,HUM.REC.ANLOG 1,000 UNIT/10 ML UNIT SUBCUT SCH ×2 (11:27→22:25)
[2018-01-11] MEDS: ATENOLOL 50 MG TABLET PO SCH (11:31)
[2018-01-11] MEDS: DOCUSATE SODIUM 100 MG CAPSULE PO SCH (11:31)
[2018-01-11] MEDS: LOSARTAN POTASSIUM 50 MG TABLET PO SCH (11:31)
[2018-01-11] MEDS: FUROSEMIDE 20 MG TABLET PO SCH ×2 (11:32→20:07)
[2018-01-11] MEDS: FERROUS SULFATE 325 MG TABLET PO SCH ×2 (11:32→22:29)
[2018-01-11] MEDS: CITALOPRAM HYDROBROMIDE 20 MG TABLET PO SCH (11:32)
[2018-01-11] MEDS: POTASSIUM CHLORIDE 10 MEQ CAPSULE.ER PO SCH (11:32)
[2018-01-11] MEDS: ASPIRIN 81 MG TABLET, CHEWABLE PO SCH (11:33)
--- NOTE | 2018-01-11 15:56 | PDOC PROGRESS REPORT ---
Subjective Progress Note for:: 01/11/18 Subjective:: He has no new complaints, but his HB/HCT decreased to 7.8/23.5, so he is getting 2 units of PRBC and Lasix 20 mg IVx1 after the second unit of PRBC. His blood culture grew Gram positive dipococci and Gram positive rods.We will review with final sensitivity result, but he is already on Vancomycin and Zosyn. We are still awaiting Gen. surgical consult for mgt of the the right foot diabetic wound/osteomyelitis. Reason For Visit: OSTEOMYELITIS RIGHT FOOT/RIGHT DIABETIC FOOT ULCER Physical Exam Vital Signs: Temp Pulse Resp BP Pulse Ox 98.6 F 68 14 110/76 96 01/11/18 13:06 01/11/18 15:40 01/11/18 14:00 01/11/18 13:06 01/11/18 14:00 Intake & Output 01/10/18 01/11/18 01/12/18 06:59 06:59 06:59 Intake Total 568 350 Output Total 400 Balance 168 350 Weight 144.2 kg General appearance: PRESENT: no acute distress, cooperative, obese, well- developed, well-nourished Head exam: PRESENT: atraumatic, normocephalic Eye exam: PRESENT: EOMI, PERRLA Ear exam: PRESENT: normal external ear exam, TM's normal bilaterally Mouth exam: PRESENT: neck supple, tongue midline Neck exam: PRESENT: full ROM Respiratory exam: PRESENT: clear to auscultation eliseo, symmetrical Cardiovascular exam: PRESENT: +S1, +S2 Pulses: PRESENT: +2 pedal pulses bilateral GI/Abdominal exam: PRESENT: normal bowel sounds, soft Rectal exam: PRESENT: deferred Extremities exam: PRESENT: tenderness Additional comments: Right foot- wound with erythema, serosanguinous drainage, covered with dressing. Neurological exam: PRESENT: alert, awake, oriented to person, oriented to place , oriented to time Psychiatric exam: PRESENT: normal mood Results Laboratory Results: 01/11/18 06:08 01/11/18 05:20 01/10/18 01/11/18 01/11/18 19:35 05:20 05:20 WBC 9.8 RBC 2.88 L Hgb 7.9 L Hct 22.9 L MCV 80 MCH 27.4 MCHC 34.5 RDW 18.0 H Plt Count 226 Seg Neutrophils % 81.5 H Lymphocytes % 9.5 L Monocytes % 8.1 Eosinophils % 0.4 Basophils % 0.5 Absolute Neutrophils 8.0 Absolute Lymphocytes 0.9 Absolute Monocytes 0.8 Absolute Eosinophils 0.0 Absolute Basophils 0.1 Sodium 132.4 L Potassium 4.8 Chloride 94 L Carbon Dioxide 27 Anion Gap 11 BUN 42 H Creatinine 1.66 H Est GFR ( Amer) 51 L Est GFR (Non-Af Amer) 42 L Glucose 192 H Lactic Acid 3.3 H Calcium 7.9 L Total Bilirubin 0.9 AST 11 L ALT 16 L Alkaline Phosphatase 71 Total Protein 6.4 Albumin 3.0 L Triglycerides 197 H Cholesterol 109.13 LDL Cholesterol Direct 48 VLDL Cholesterol 39.4 H HDL Cholesterol 26 L TSH Blood Type Antibody Screen 01/11/18 01/11/18 01/11/18 05:20 06:08 07:35 WBC 9.4 RBC 2.94 L Hgb 7.8 L Hct 23.5 L MCV 80 MCH 26.7 L MCHC 33.3 RDW 18.2 H Plt Count 225 Seg Neutrophils % Lymphocytes % Monocytes % Eosinophils % Basophils % Absolute Neutrophils Absolute Lymphocytes Absolute Monocytes Absolute Eosinophils Absolute Basophils Sodium Potassium Chloride Carbon Dioxide Anion Gap BUN Creatinine Est GFR ( Amer) Est GFR (Non-Af Amer) Glucose Lactic Acid Calcium Total Bilirubin AST ALT Alkaline Phosphatase Total Protein Albumin Triglycerides Cholesterol LDL Cholesterol Direct VLDL Cholesterol HDL Cholesterol TSH 1.43 Blood Type A POSITIVE Antibody Screen NEGATIVE Impressions: Foot X-Ray 01/10/18 13:22 IMPRESSION: 1. Soft tissue injury along the plantar aspect of the distal calcaneus likely consistent with the patient's known ulcer. The findings as detailed above suggest osteomyelitis involving the plantar aspect of the distal calcaneus. 2. Persistent soft tissue swelling foot and ankle with decrease since the prior study. Assessment & Plan - Diagnosis (1) Osteomyelitis of right foot Qualifiers: Osteomyelitis type: unspecified type Qualified Code(s): M86.9 - Osteomyelitis, unspecified Is this a current diagnosis for this admission?: Yes Plan: Ct with Zosyn 2.25 g q6h IV; Vancomycon IV as per [facility] protocol;Ct with Tylenol 650 mg q4h po prn. F/u Gen. surgical consult for mgt; f/u wound culture and blood cultures. (2) Diabetic foot ulcer Qualifiers: Diabetes mellitus type: type 2 Laterality: right Is this a current diagnosis for this admission?: Yes Plan: Ct with Zosyn 2.25 g q6h IV; Vancomycin IV as per [facility] protocol; F/u Tylenol 650 mg q4h prn po; F/U wound culture and blood cultures; f/u Gen. surgical consult for mgt. (3) Diabetes mellitus type 2 in nonobese Is this a current diagnosis for this admission?: Yes Plan: Ct with Lantus 40 iu BID subcut; Humalog 10 iu QAC;Accucheck QAC, QHS with slidding scale with humalog insulin as per [facility] protocol.1800 calorie ADA diet.Hold Metformin 500 mg BID for now. (4) Hypertension Qualifiers: Hypertension type: essential hypertension Qualified Code(s): I10 - Essential (primary) hypertension Is this a current diagnosis for this admission?: Yes Plan: Ct with Losartan 100 mg qd pO; Atenolol 100 mg qd PO; 2g sodium diet. (5) Hyperlipidemia Qualifiers: Hyperlipidemia type: mixed hyperlipidemia Qualified Code(s): E78.2 - Mixed hyperlipidemia Is this a current diagnosis for this admission?: Yes Plan: Ct with Atorvastatin 40 mg qhs po; 200 mg cholesterol diet. (6) Chronic diastolic CHF (congestive heart failure) Is this a current diagnosis for this admission?: Yes Plan: Ct with Lasix 20 mg BID PO; KCL 20 MEQ qd po; strict input/output chart; Daily weight;Monitor chemistries daily. Hold off Metolazone 5 mg qd due to worsening kidney function. (7) CAD (coronary artery disease) of artery bypass graft Is this a current diagnosis for this admission?: Yes Plan: Ct with Aspirin 81 mg qd po; cardiac diet. (8) GERD (gastroesophageal reflux disease) Is this a current diagnosis for this admission?: Yes Plan: Ct with Prevacid 30 mg qd po since we do not have Omeprazole in our formulary. (9) Fe deficiency anemia Qualifiers: Iron deficiency anemia type: unspecified iron deficiency Qualified Code(s) : D50.9 - Iron deficiency anemia, unspecified Is this a current diagnosis for this admission?: Yes Plan: Ct with FeSO4 325 mg BID po; monitor CBC daily. (10) Depression Qualifiers: Depression Type: unspecified Qualified Code(s): F32.9 - Major depressive disorder, single episode, unspecified Is this a current diagnosis for this admission?: Yes Plan: Ct with Celexa 20 mg qd po. (11) Obstructive sleep apnea Is this a current diagnosis for this admission?: Yes Plan: Ct with CPAP at night. (12) DVT prophylaxis Is this a current diagnosis for this admission?: Yes Plan: Ct with Heparin 5000iu subcut q8h; SCD.
--- NOTE | 2018-01-11 19:51 | PDOC CONSULTATION ---
History of Present Illness Admission Date/PCP: 01/10/18 15:16 ANA PAULA PULLIAM Patient complains of: Nonhealing right heel ulcer History of Present Illness: FAVIO JEFFRIES is a 62 year old male with long history of nonhealing right heel ulcer that is underwent multiple debridements as an outpatient. Patient comes in for worsening redness and drainage from this region. He has multiple medical problems including diabetes, congestive heart failure, hypertension, hyperlipidemia, coronary artery disease and iron deficiency anemia. Past Medical History Cardiac Medical History: Reports: Coronary Artery Disease, Hypertension Endocrine Medical History: Reports: Diabetes Mellitus Type 2 GI Medical History: Reports: Gastroesophageal Reflux Disease Musculoskeltal Medical History: Reports: Arthritis Psychiatric Medical History: Reports: Depression Hematology: Reports: Anemia Past Surgical History Past Surgical History: Reports: Appendectomy, Cholecystectomy, Coronary Artery Bypass Graft Social History Lives with: Family Smoking Status: Never Smoker Frequency of Alcohol Use: None Hx Recreational Drug Use: No Drugs: None Hx Prescription Drug Abuse: No Family History Family History: Reviewed & Not Pertinent Parental Family History Reviewed: No Children Family History Reviewed: No Sibling(s) Family History Reviewed.: No Medication/Allergy Home Medications: Aspirin [Aspirin 81 mg Chewable Tablet] 81 mg PO DAILY 01/10/18 Atenolol [Tenormin] 100 mg PO DAILY 01/10/18 Atorvastatin Calcium [Lipitor 40 mg Tablet] 40 mg PO QHS 01/10/18 Citalopram Hydrobromide [Celexa 20 mg Tablet] 20 mg PO DAILY 01/10/18 Cranberry Conc/Ascorbic Acid [Cranberry Concentrate Softgel] 1 each PO DAILY Furosemide [Lasix 20 mg Tablet] 20 mg PO BID 01/10/18 Insulin Aspart [Novolog Insulin 100 Unit/1 ml 10 ml] 10 unit SQ AC 01/10/18 Insulin Glargine,Hum.rec.anlog [Lantus] 40 unit SQ Q12 01/10/18 Losartan Potassium [Cozaar] 100 mg PO DAILY 01/10/18 Metformin HCl [Glucophage] 500 mg PO BIDACBS 01/10/18 Metoclopramide HCl [Reglan] 5 mg PO TID 01/10/18 Metolazone [Zaroxolyn 5 Mg Tablet] 5 mg PO DAILY 01/10/18 Omeprazole 20 mg PO DAILY 01/10/18 Potassium Chloride [K-Tab ER] 20 meq PO DAILY 01/10/18 Allergies/Adverse Reactions: lisinopril Allergy (Verified 01/10/18 12:51) Physical Exam Vital Signs: Temp Pulse Resp BP Pulse Ox 98.6 F 68 14 110/76 96 01/11/18 13:06 01/11/18 15:40 01/11/18 14:00 01/11/18 13:06 01/11/18 14:00 Intake & Output 01/10/18 01/11/18 01/12/18 06:59 06:59 06:59 Intake Total 568 350 Output Total 400 Balance 168 350 Weight 144.2 kg General appearance: PRESENT: no acute distress, cooperative Eye exam: PRESENT: conjunctiva pink Respiratory exam: PRESENT: clear to auscultation eliseo Cardiovascular exam: PRESENT: RRR GI/Abdominal exam: PRESENT: other - Soft, nondistended nontender to palpation. Extremities exam: PRESENT: other - Bilateral lower extremity edema. Right heel with a large full thickness ulcer with exposed subcutaneous tissue with regions of necrosis, encompassing almost the entire plantar surface of the heel with surrounding erythema and induration, I do not see exposed bone but there is very little tissue overlying the calcaneus. There is drainage. Results Laboratory Results: 01/11/18 06:08 01/11/18 05:20 01/10/18 01/11/18 01/11/18 19:35 05:20 05:20 WBC 9.8 RBC 2.88 L Hgb 7.9 L Hct 22.9 L MCV 80 MCH 27.4 MCHC 34.5 RDW 18.0 H Plt Count 226 Seg Neutrophils % 81.5 H Lymphocytes % 9.5 L Monocytes % 8.1 Eosinophils % 0.4 Basophils % 0.5 Absolute Neutrophils 8.0 Absolute Lymphocytes 0.9 Absolute Monocytes 0.8 Absolute Eosinophils 0.0 Absolute Basophils 0.1 Sodium 132.4 L Potassium 4.8 Chloride 94 L Carbon Dioxide 27 Anion Gap 11 BUN 42 H Creatinine 1.66 H Est GFR ( Amer) 51 L Est GFR (Non-Af Amer) 42 L Glucose 192 H Lactic Acid 3.3 H Calcium 7.9 L Total Bilirubin 0.9 AST 11 L ALT 16 L Alkaline Phosphatase 71 Total Protein 6.4 Albumin 3.0 L Triglycerides 197 H Cholesterol 109.13 LDL Cholesterol Direct 48 VLDL Cholesterol 39.4 H HDL Cholesterol 26 L TSH Blood Type Antibody Screen 01/11/18 01/11/18 01/11/18 05:20 06:08 07:35 WBC 9.4 RBC 2.94 L Hgb 7.8 L Hct 23.5 L MCV 80 MCH 26.7 L MCHC 33.3 RDW 18.2 H Plt Count 225 Seg Neutrophils % Lymphocytes % Monocytes % Eosinophils % Basophils % Absolute Neutrophils Absolute Lymphocytes Absolute Monocytes Absolute Eosinophils Absolute Basophils Sodium Potassium Chloride Carbon Dioxide Anion Gap BUN Creatinine Est GFR ( Amer) Est GFR (Non-Af Amer) Glucose Lactic Acid Calcium Total Bilirubin AST ALT Alkaline Phosphatase Total Protein Albumin Triglycerides Cholesterol LDL Cholesterol Direct VLDL Cholesterol HDL Cholesterol TSH 1.43 Blood Type A POSITIVE Antibody Screen NEGATIVE Impressions: Foot X-Ray 01/10/18 13:22 IMPRESSION: 1. Soft tissue injury along the plantar aspect of the distal calcaneus likely consistent with the patient's known ulcer. The findings as detailed above suggest osteomyelitis involving the plantar aspect of the distal calcaneus. 2. Persistent soft tissue swelling foot and ankle with decrease since the prior study. Assessment & Plan - Diagnosis (1) Diabetic foot ulcer Qualifiers: Diabetic foot ulcer location: heel Diabetes mellitus type: type 2 Laterality: right Is this a current diagnosis for this admission?: Yes Plan: Nonhealing chronic diabetic foot ulcer at his heel with x-ray and MRI findings consistent with osteomyelitis of the calcaneus. I do not think that further local debridement would benefit the patient. I have recommended to the patient a below the knee amputation. Due to the patient's edema healing of the stump may pose a problem however I do not think his foot can be salvaged. Patient would like a second opinion prior to proceeding with an amputation. I will ask orthopedics to evaluate the patient.
[2018-01-11] MEDS: ZOLPIDEM TARTRATE 5 MG TABLET PO PRN (22:25)
[2018-01-11] MEDS: ATORVASTATIN CALCIUM 40 MG TABLET PO SCH (22:26)
[2018-01-11] MEDS ORDERED: DEXTROSE 40% GEL 15 GM TUBE PO PRN ×2 (23:52)
[2018-01-11] MEDS ORDERED: DEXTROSE 50%-WATER 25 GM/50 ML DISP.SYRIN IV PRN ×2 (23:52)
[2018-01-11] MEDS ORDERED: GLUCAGON,HUMAN RECOMB 1 MG INJ SUBCUT PRN (23:52)
[2018-01-12 05:15] LABS: ABSOLUTE BASOPHILS # (AUTO) 0.1 10^3/uL (0.0-0.2); ABSOLUTE EOSINOPHILS # (AUTO) 0.1 10^3/uL (0.0-0.6); ABSOLUTE LYMPHOCYTES (AUTO) 1.4 10^3/uL (0.5-4.7); ABSOLUTE NEUT (AUTO) 5.8 10^3/uL (1.7-8.2); BASOPHILS % (AUTO) 0.8 % (0-2); EOSINOPHILS % (AUTO) 1.7 % (0-6); HEMATOCRIT 27.5 % (37.9-51.0); HEMOGLOBIN 9.7 g/dL (13.5-17.0); LYMPHOCYTES % (AUTO) 16.2 % (13-45); MEAN CORPUSCULAR HGB CONC 35.1 g/dL (32.0-36.0); MEAN CORPUSCULAR VOLUME 80 fl (80-97); MONOCYTES % (AUTO) 12.2 % (3-13); PLATELET COUNT 213 10^3/uL (150-450); RED BLOOD COUNT 3.46 10^6/uL (4.35-5.55); RED CELL DISTRIBUTION WIDTH 17.5 % (11.5-14.0); SEGMENTED NEUTROPHILS % (AUTO) 69.1 % (42-78); TOTAL CELLS COUNTED % (AUTO) 100 %; WHITE BLOOD COUNT 8.4 10^3/uL (4.0-10.5)
[2018-01-12 05:39] LABS: ALANINE AMINOTRANSFERASE 21 U/L (21-72); ALBUMIN 3.1 g/dL (3.5-5.0); ALKALINE PHOSPHATASE 71 U/L (38-126); ANION GAP 11 (5-19); ASPARTATE AMINO TRANSFERASE 13 U/L (17-59); BILIRUBIN,DIRECT 0.4 mg/dL (0.0-0.4); BILIRUBIN,TOTAL 2.3 mg/dL (0.2-1.3); BLOOD UREA NITROGEN 42 mg/dL (7-20); CALCIUM 8.2 mg/dL (8.4-10.2); CARBON DIOXIDE 28 mmol/L (22-30); CHLORIDE 94 mmol/L (98-107); GLUCOSE 191 mg/dL (75-110); POTASSIUM 4.2 mmol/L (3.6-5.0); SODIUM 133.1 mmol/L (137-145); TOTAL PROTEIN 6.6 g/dL (6.3-8.2)
[2018-01-12] MEDS: HEPARIN SOD (PORCINE) 5,000 UNIT/ML 1 ML SYRINGE SUBCUT SCH ×3 (06:20→22:38)
[2018-01-12] MEDS: LANSOPRAZOLE 30 MG TAB.RAP.DR PO SCH (06:21)
[2018-01-12] MEDS: INSULIN GLARGINE,HUM.REC.ANLOG 1,000 UNIT/10 ML UNIT SUBCUT SCH ×2 (09:10→22:49)
[2018-01-12] MEDS: POTASSIUM CHLORIDE 10 MEQ CAPSULE.ER PO SCH (09:11)
[2018-01-12] MEDS: CITALOPRAM HYDROBROMIDE 20 MG TABLET PO SCH (09:11)
[2018-01-12] MEDS: LOSARTAN POTASSIUM 50 MG TABLET PO SCH (09:11)
[2018-01-12] MEDS: ATENOLOL 50 MG TABLET PO SCH (09:11)
[2018-01-12] MEDS: DOCUSATE SODIUM 100 MG CAPSULE PO SCH (09:11)
[2018-01-12] MEDS: FERROUS SULFATE 325 MG TABLET PO SCH ×2 (09:11→17:38)
[2018-01-12] MEDS: ASPIRIN 81 MG TABLET, CHEWABLE PO SCH (09:12)
[2018-01-12] MEDS: INSULIN LISPRO 100 UNIT/ML 3 ML VIAL SUBCUT SCH ×4 (09:12→17:38)
[2018-01-12] MEDS: FUROSEMIDE 20 MG TABLET PO SCH ×2 (09:12→17:38)
[2018-01-12] MEDS: VANCOMYCIN HCL 1,000 MG in DEXTROSE 5%-WATER 250 ML IV SCH ×2 (11:39→22:37)
[2018-01-12 12:05] LABS: VANCOMYCIN,TROUGH 15.2 ug/mL (5.0-20.0)
--- NOTE | 2018-01-12 16:49 | PDOC PROGRESS REPORT ---
Subjective Progress Note for:: 01/12/18 Subjective:: Pt seen and he has no new complaints. He was seen both by general surgeon, Dr Gibbs yesterday and orthopedics surgeon, Dr Ashley today for second opinion.Pt has agreed for right below knee amputation and that will be done tomorrow. He will be NPO from 12 midnight for the surgery tomorrow. His HB/HCT has increased to 9.7/27.5 following transfusion of 2 units of PRBC. His BUN/Cr has improved to 42/1.29. His Blood culture showed Gram positive cocci in pairs and Gram negative rods. Reason For Visit: OSTEOMYELITIS RIGHT FOOT/RIGHT DIABETIC FOOT ULCER Physical Exam Vital Signs: Temp Pulse Resp BP Pulse Ox 98.7 F 64 18 165/61 H 97 01/12/18 12:00 01/12/18 14:00 01/12/18 12:00 01/12/18 12:00 01/12/18 12:00 Intake & Output 01/11/18 01/12/18 01/13/18 06:59 06:59 06:59 Intake Total 568 1240 0 Output Total 400 1400 900 Balance 168 -160 -900 Weight 144.2 kg 144.6 kg General appearance: PRESENT: no acute distress, cooperative, obese, well- developed, well-nourished Head exam: PRESENT: atraumatic, normocephalic Eye exam: PRESENT: EOMI, PERRLA Ear exam: PRESENT: normal external ear exam, TM's normal bilaterally Mouth exam: PRESENT: neck supple, tongue midline Neck exam: PRESENT: full ROM Respiratory exam: PRESENT: chest wall tenderness, symmetrical Cardiovascular exam: PRESENT: +S1, +S2 Pulses: PRESENT: +2 pedal pulses bilateral GI/Abdominal exam: PRESENT: normal bowel sounds, soft Rectal exam: PRESENT: deferred Extremities exam: PRESENT: full ROM Additional comments: Right foot- tender, swollen, erythematous, with induration and drainage, covered with dressing. Neurological exam: PRESENT: alert, awake, oriented to person, oriented to place , oriented to time Psychiatric exam: PRESENT: normal mood Results Laboratory Results: 01/12/18 04:10 01/12/18 11:05 01/11/18 01/12/18 01/12/18 07:35 04:10 04:10 WBC 8.4 RBC 3.46 L Hgb 9.7 L Hct 27.5 L MCV 80 MCH 28.0 MCHC 35.1 RDW 17.5 H Plt Count 213 Seg Neutrophils % 69.1 Lymphocytes % 16.2 Monocytes % 12.2 Eosinophils % 1.7 Basophils % 0.8 Absolute Neutrophils 5.8 Absolute Lymphocytes 1.4 Absolute Monocytes 1.0 Absolute Eosinophils 0.1 Absolute Basophils 0.1 Sodium 133.1 L Potassium 4.2 Chloride 94 L Carbon Dioxide 28 Anion Gap 11 BUN 42 H Creatinine 1.41 H Est GFR ( Amer) > 60 Est GFR (Non-Af Amer) 51 L Glucose 191 H Calcium 8.2 L Total Bilirubin 2.3 H AST 13 L ALT 21 Alkaline Phosphatase 71 Total Protein 6.6 Albumin 3.1 L Blood Type A POSITIVE Antibody Screen NEGATIVE 01/12/18 11:05 WBC RBC Hgb Hct MCV MCH MCHC RDW Plt Count Seg Neutrophils % Lymphocytes % Monocytes % Eosinophils % Basophils % Absolute Neutrophils Absolute Lymphocytes Absolute Monocytes Absolute Eosinophils Absolute Basophils Sodium Potassium Chloride Carbon Dioxide Anion Gap BUN Creatinine 1.29 H Est GFR ( Amer) > 60 Est GFR (Non-Af Amer) 57 L Glucose Calcium Total Bilirubin AST ALT Alkaline Phosphatase Total Protein Albumin Blood Type Antibody Screen Impressions: Foot X-Ray 01/10/18 13:22 IMPRESSION: 1. Soft tissue injury along the plantar aspect of the distal calcaneus likely consistent with the patient's known ulcer. The findings as detailed above suggest osteomyelitis involving the plantar aspect of the distal calcaneus. 2. Persistent soft tissue swelling foot and ankle with decrease since the prior study. Assessment & Plan - Diagnosis (1) Osteomyelitis of right foot Qualifiers: Osteomyelitis type: unspecified type Qualified Code(s): M86.9 - Osteomyelitis, unspecified Is this a current diagnosis for this admission?: Yes Plan: Ct with Zosyn 2.25 g q6h IV; Vancomycon IV as per [facility] protocol;Ct with Tylenol 650 mg q4h po prn. F/u Gen. surgical consult for mgt; f/u wound culture and blood cultures. (2) Diabetic foot ulcer Qualifiers: Diabetic foot ulcer location: heel Diabetes mellitus type: type 2 Laterality: right Is this a current diagnosis for this admission?: Yes Plan: Ct with Zosyn 2.25 g q6h IV; Vancomycin IV as per [facility] protocol; F/u Tylenol 650 mg q4h prn po; F/U wound culture and blood cultures; f/u Gen. surgical consult for mgt. (3) Diabetes mellitus type 2 in nonobese Is this a current diagnosis for this admission?: Yes Plan: Ct with Lantus 40 iu BID subcut; Humalog 10 iu QAC;Accucheck QAC, QHS with slidding scale with humalog insulin as per [facility] protocol.1800 calorie ADA diet.Hold Metformin 500 mg BID for now. (4) Hypertension Qualifiers: Hypertension type: essential hypertension Qualified Code(s): I10 - Essential (primary) hypertension Is this a current diagnosis for this admission?: Yes Plan: Ct with Losartan 100 mg qd pO; Atenolol 100 mg qd PO; 2g sodium diet. (5) Hyperlipidemia Qualifiers: Hyperlipidemia type: mixed hyperlipidemia Qualified Code(s): E78.2 - Mixed hyperlipidemia Is this a current diagnosis for this admission?: Yes Plan: Ct with Atorvastatin 40 mg qhs po; 200 mg cholesterol diet. (6) Chronic diastolic CHF (congestive heart failure) Is this a current diagnosis for this admission?: Yes Plan: Ct with Lasix 20 mg BID PO; KCL 20 MEQ qd po; strict input/output chart; Daily weight;Monitor chemistries daily. D/C Metolazone 5 mg qd due to worsening kidney function. (7) CAD (coronary artery disease) of artery bypass graft Is this a current diagnosis for this admission?: Yes Plan: Ct with Aspirin 81 mg qd po; cardiac diet. (8) GERD (gastroesophageal reflux disease) Is this a current diagnosis for this admission?: Yes Plan: Ct with Prevacid 30 mg qd po since we do not have Omeprazole in our formulary. (9) Fe deficiency anemia Qualifiers: Iron deficiency anemia type: unspecified iron deficiency Qualified Code(s) : D50.9 - Iron deficiency anemia, unspecified Is this a current diagnosis for this admission?: Yes Plan: Ct with FeSO4 325 mg BID po; monitor CBC daily. (10) Depression Qualifiers: Depression Type: unspecified Qualified Code(s): F32.9 - Major depressive disorder, single episode, unspecified Is this a current diagnosis for this admission?: Yes Plan: Ct with Celexa 20 mg qd po. (11) Obstructive sleep apnea Is this a current diagnosis for this admission?: Yes Plan: Ct with CPAP at night. (12) DVT prophylaxis Is this a current diagnosis for this admission?: Yes Plan: Ct with Heparin 5000iu subcut q8h; SCD.
[2018-01-12] MEDS: INSULIN LISPRO 100 UNIT/ML 3 ML VIAL SUBCUT PRN (17:39)
--- NOTE | 2018-01-12 17:52 | PDOC CONSULTATION ---
Consultation Consult Date: 01/12/18 Consult reason:: Second opinion for right BKA History of Present Illness Admission Date/PCP: 01/10/18 15:16 ANA PAULA PULLIAM History of Present Illness: FAVIO JEFFRIES is a 62 year old male diabetic with insensate foot and a large necrotic wound with exposed calcaneus. He has been dealing with this for 2 years now. Denies any fevers or chills but states that wound is not improving in fact getting worse and larger. He has no pain due to his insensate foot from his diabetes. He states he has had studies showing good blood flow to the foot despite clinically not making any improvement and slow capillary refill. General surgery had recommended to proceed with below the knee amputation and eventual be fitted for prosthesis. The patient would like a second opinion to see if he can save the foot. Past Medical History Cardiac Medical History: Reports: Coronary Artery Disease, Hypertension Endocrine Medical History: Reports: Diabetes Mellitus Type 2 GI Medical History: Reports: Gastroesophageal Reflux Disease Musculoskeltal Medical History: Reports: Arthritis Psychiatric Medical History: Reports: Depression Hematology: Reports: Anemia Past Surgical History Past Surgical History: Reports: Appendectomy, Cholecystectomy, Coronary Artery Bypass Graft Social History Lives with: Family Smoking Status: Never Smoker Frequency of Alcohol Use: None Hx Recreational Drug Use: No Drugs: None Hx Prescription Drug Abuse: No Family History Family History: Reviewed & Not Pertinent Parental Family History Reviewed: No Children Family History Reviewed: No Sibling(s) Family History Reviewed.: No Medication/Allergy Home Medications: Aspirin [Aspirin 81 mg Chewable Tablet] 81 mg PO DAILY 01/10/18 Atenolol [Tenormin] 100 mg PO DAILY 01/10/18 Atorvastatin Calcium [Lipitor 40 mg Tablet] 40 mg PO QHS 01/10/18 Citalopram Hydrobromide [Celexa 20 mg Tablet] 20 mg PO DAILY 01/10/18 Cranberry Conc/Ascorbic Acid [Cranberry Concentrate Softgel] 1 each PO DAILY Furosemide [Lasix 20 mg Tablet] 20 mg PO BID 01/10/18 Insulin Aspart [Novolog Insulin 100 Unit/1 ml 10 ml] 10 unit SQ AC 01/10/18 Insulin Glargine,Hum.rec.anlog [Lantus] 40 unit SQ Q12 01/10/18 Losartan Potassium [Cozaar] 100 mg PO DAILY 01/10/18 Metformin HCl [Glucophage] 500 mg PO BIDACBS 01/10/18 Metoclopramide HCl [Reglan] 5 mg PO TID 01/10/18 Metolazone [Zaroxolyn 5 Mg Tablet] 5 mg PO DAILY 01/10/18 Omeprazole 20 mg PO DAILY 01/10/18 Potassium Chloride [K-Tab ER] 20 meq PO DAILY 01/10/18 Allergies/Adverse Reactions: lisinopril Allergy (Verified 01/10/18 12:51) Review of Systems Review of Systems: Constitutional: [PRESENT: as per HPI. ABSENT: chills, fever(s), headache(s), weight gain, weight loss] Eyes: [ABSENT: visual disturbances] Ears: [ABSENT: hearing changes] Cardiovascular: [ABSENT: chest pain, dyspnea on exertion, edema, orthropnea, palpitations] Respiratory: [ABSENT: cough, hemoptysis] Gastrointestinal: [ABSENT: abdominal pain, constipation, diarrhea, hematemesis, hematochezia, nausea, vomiting] Genitourinary: [ABSENT: dysuria, hematuria] Musculoskeletal: See HPI Integumentary: [ABSENT: rash, wounds] Neurological: [ABSENT: abnormal gait, abnormal speech, confusion, dizziness, focal weakness, syncope] Psychiatric: [ABSENT: anxiety, depression, homicidal ideation, suicidal ideation ] Endocrine: [ABSENT: cold intolerance, heat intolerance, menstrual abnormalities , polydipsia, polyuria] Hematologic/Lymphatic: [ABSENT: easy bleeding, easy bruising, lymphadenopathy] Physical Exam Vital Signs: Temp Pulse Resp BP Pulse Ox 37.4 C 65 16 140/56 H 94 01/12/18 16:00 01/12/18 16:00 01/12/18 16:00 01/12/18 16:00 01/12/18 16:00 Intake & Output 01/11/18 01/12/18 01/13/18 06:59 06:59 06:59 Intake Total 568 1240 480 Output Total 400 1400 3300 Balance 168 -160 -2820 Weight 144.2 kg 144.6 kg General appearance: PRESENT: no acute distress, obese Eye exam: PRESENT: EOMI, other - Symmetric pupils. ABSENT: nystagmus Ear exam: PRESENT: normal external ear exam Mouth exam: PRESENT: neck supple Teeth exam: PRESENT: poor dentation Neck exam: ABSENT: lymphadenopathy Respiratory exam: PRESENT: symmetrical, unlabored. ABSENT: accessory muscle use Cardiovascular exam: PRESENT: RRR Pulses: PRESENT: other - Unable to palpate a dorsalis pedis pulse for a posterior tibial pulse Vascular exam: PRESENT: other - Slow capillary refill GI/Abdominal exam: PRESENT: soft. ABSENT: tenderness Neurological exam: PRESENT: alert, awake, oriented to person, oriented to place , oriented to time, oriented to situation Psychiatric exam: PRESENT: appropriate affect, normal mood Adult Front & Back Image: 1 - Malodorous flexion wound on the right heel measuring about 5 inch she is by 4 inches in diameter and about a centimeter deep with exposed calcaneus and necrotic rim with necrotic bone. He has insensate foot with barely any plantar flexion or dorsiflexion or extension flexion of the digits due to probably neuropathic changes from his diabetes. Decreased capillary refill with unable to operate any pedal pulses. Results Laboratory Results: 01/12/18 04:10 01/12/18 11:05 01/11/18 01/12/18 01/12/18 07:35 04:10 04:10 WBC 8.4 RBC 3.46 L Hgb 9.7 L Hct 27.5 L MCV 80 MCH 28.0 MCHC 35.1 RDW 17.5 H Plt Count 213 Seg Neutrophils % 69.1 Lymphocytes % 16.2 Monocytes % 12.2 Eosinophils % 1.7 Basophils % 0.8 Absolute Neutrophils 5.8 Absolute Lymphocytes 1.4 Absolute Monocytes 1.0 Absolute Eosinophils 0.1 Absolute Basophils 0.1 Sodium 133.1 L Potassium 4.2 Chloride 94 L Carbon Dioxide 28 Anion Gap 11 BUN 42 H Creatinine 1.41 H Est GFR ( Amer) > 60 Est GFR (Non-Af Amer) 51 L Glucose 191 H Calcium 8.2 L Total Bilirubin 2.3 H AST 13 L ALT 21 Alkaline Phosphatase 71 Total Protein 6.6 Albumin 3.1 L Blood Type A POSITIVE Antibody Screen NEGATIVE 01/12/18 11:05 WBC RBC Hgb Hct MCV MCH MCHC RDW Plt Count Seg Neutrophils % Lymphocytes % Monocytes % Eosinophils % Basophils % Absolute Neutrophils Absolute Lymphocytes Absolute Monocytes Absolute Eosinophils Absolute Basophils Sodium Potassium Chloride Carbon Dioxide Anion Gap BUN Creatinine 1.29 H Est GFR ( Amer) > 60 Est GFR (Non-Af Amer) 57 L Glucose Calcium Total Bilirubin AST ALT Alkaline Phosphatase Total Protein Albumin Blood Type Antibody Screen Impressions: Foot X-Ray 01/10/18 13:22 IMPRESSION: 1. Soft tissue injury along the plantar aspect of the distal calcaneus likely consistent with the patient's known ulcer. The findings as detailed above suggest osteomyelitis involving the plantar aspect of the distal calcaneus. 2. Persistent soft tissue swelling foot and ankle with decrease since the prior study. Status: Image reviewed by me Assessment & Plan - Diagnosis (1) Diabetic foot ulcer Qualifiers: Diabetic foot ulcer location: heel Diabetes mellitus type: type 2 Laterality: right Is this a current diagnosis for this admission?: Yes Plan: 62-year-old gentleman with a chronic nonhealing ulcer of the golf entire aspect of the plantar aspect of the calcaneus and necrotic tissue with insensate foot and severe neuropathic diabetes. At this point I agree with my colleagues that the patient would be best served with a below the knee amputation which will allow him to recover and be fitted for prosthetic device. Patient is still struggling with the decision but I think he now starting to grasp that this is the next appropriate step in treatment. Will defer to surgicalist for proceeding with below the knee amputation.
--- NOTE | 2018-01-12 18:16 | PDOC PROGRESS REPORT ---
Subjective Progress Note for:: 01/12/18 Subjective:: Is a 62-year-old male with a severe diabetic foot infection on the right. Patient has a large wound with known osteomyelitis of the calcaneus. The patient denies any chest pain, shortness of breath, abdominal pain, nausea, or vomiting today. The patient does report malaise and fatigue. He also reports foul smelling drainage from his right foot. Reason For Visit: OSTEOMYELITIS RIGHT FOOT/RIGHT DIABETIC FOOT ULCER Physical Exam Vital Signs: Temp Pulse Resp BP Pulse Ox 99.3 F 65 16 140/56 H 94 01/12/18 16:00 01/12/18 16:00 01/12/18 16:00 01/12/18 16:00 01/12/18 16:00 Intake & Output 01/11/18 01/12/18 01/13/18 06:59 06:59 06:59 Intake Total 568 1240 480 Output Total 400 1400 3300 Balance 168 -160 -2820 Weight 144.2 kg 144.6 kg General appearance: PRESENT: no acute distress Head exam: PRESENT: atraumatic, normocephalic Eye exam: PRESENT: PERRLA. ABSENT: scleral icterus Mouth exam: PRESENT: moist, neck supple Neck exam: ABSENT: meningismus, tenderness, thyromegaly, tracheal deviation Respiratory exam: ABSENT: chest wall tenderness, tachypnea, wheezes Cardiovascular exam: PRESENT: RRR Pulses: PRESENT: normal radial pulses GI/Abdominal exam: PRESENT: soft. ABSENT: distended, guarding, rigid, tenderness Rectal exam: PRESENT: deferred Extremities exam: PRESENT: +1 edema - Right lower extremity, other - Large wound to the right calcaneus. Foul-smelling drainage present. Exposed bone. Neurological exam: PRESENT: alert, awake, oriented to person, oriented to place , oriented to time, oriented to situation, CN II-XII grossly intact Psychiatric exam: ABSENT: agitated, anxious, depressed Focused psych exam: ABSENT: delusional Skin exam: ABSENT: jaundice, pallor Results Laboratory Results: 01/12/18 04:10 01/12/18 11:05 01/11/18 01/12/18 01/12/18 07:35 04:10 04:10 WBC 8.4 RBC 3.46 L Hgb 9.7 L Hct 27.5 L MCV 80 MCH 28.0 MCHC 35.1 RDW 17.5 H Plt Count 213 Seg Neutrophils % 69.1 Lymphocytes % 16.2 Monocytes % 12.2 Eosinophils % 1.7 Basophils % 0.8 Absolute Neutrophils 5.8 Absolute Lymphocytes 1.4 Absolute Monocytes 1.0 Absolute Eosinophils 0.1 Absolute Basophils 0.1 Sodium 133.1 L Potassium 4.2 Chloride 94 L Carbon Dioxide 28 Anion Gap 11 BUN 42 H Creatinine 1.41 H Est GFR ( Amer) > 60 Est GFR (Non-Af Amer) 51 L Glucose 191 H Calcium 8.2 L Total Bilirubin 2.3 H AST 13 L ALT 21 Alkaline Phosphatase 71 Total Protein 6.6 Albumin 3.1 L Blood Type A POSITIVE Antibody Screen NEGATIVE 01/12/18 11:05 WBC RBC Hgb Hct MCV MCH MCHC RDW Plt Count Seg Neutrophils % Lymphocytes % Monocytes % Eosinophils % Basophils % Absolute Neutrophils Absolute Lymphocytes Absolute Monocytes Absolute Eosinophils Absolute Basophils Sodium Potassium Chloride Carbon Dioxide Anion Gap BUN Creatinine 1.29 H Est GFR ( Amer) > 60 Est GFR (Non-Af Amer) 57 L Glucose Calcium Total Bilirubin AST ALT Alkaline Phosphatase Total Protein Albumin Blood Type Antibody Screen Impressions: Foot X-Ray 01/10/18 13:22 IMPRESSION: 1. Soft tissue injury along the plantar aspect of the distal calcaneus likely consistent with the patient's known ulcer. The findings as detailed above suggest osteomyelitis involving the plantar aspect of the distal calcaneus. 2. Persistent soft tissue swelling foot and ankle with decrease since the prior study. Assessment & Plan - Diagnosis (1) Diabetic foot ulcer Qualifiers: Diabetic foot ulcer location: heel Diabetes mellitus type: type 2 Laterality: right Is this a current diagnosis for this admission?: Yes (2) Osteomyelitis of right foot Qualifiers: Osteomyelitis type: unspecified type Qualified Code(s): M86.9 - Osteomyelitis, unspecified Is this a current diagnosis for this admission?: Yes - Plan Summary Plan Summary: This is a 62-year-old male with a severe diabetic foot infection. Previously, below-knee amputation was recommended to him as treatment. The patient refused this treatment. A second opinion was sought. Dr. Ashley has seen the patient. He concurs that a below-knee amputation will be necessary to resolve the patient 's infection. This was again discussed with the patient. The patient is now requesting below-knee amputation be performed. I will make plans to post this case for tomorrow. All the patient's questions were answered.
[2018-01-12] MEDS ORDERED: LIDOCAINE 2% VISCOUS SOLN 20 ML UDCUP MM PRN (20:16)
[2018-01-12] MEDS: ZOLPIDEM TARTRATE 5 MG TABLET PO PRN (22:37)
[2018-01-12] MEDS: ATORVASTATIN CALCIUM 40 MG TABLET PO SCH (22:38)
[2018-01-13 04:59] LABS: ABSOLUTE BASOPHILS # (AUTO) 0.1 10^3/uL (0.0-0.2); ABSOLUTE EOSINOPHILS # (AUTO) 0.2 10^3/uL (0.0-0.6); ABSOLUTE LYMPHOCYTES (AUTO) 1.8 10^3/uL (0.5-4.7); ABSOLUTE NEUT (AUTO) 5.9 10^3/uL (1.7-8.2); BASOPHILS % (AUTO) 0.8 % (0-2); EOSINOPHILS % (AUTO) 2.1 % (0-6); HEMATOCRIT 28.1 % (37.9-51.0); HEMOGLOBIN 9.5 g/dL (13.5-17.0); LYMPHOCYTES % (AUTO) 20.4 % (13-45); MEAN CORPUSCULAR HEMOGLOBIN 27.3 pg (27.0-33.4); MEAN CORPUSCULAR HGB CONC 33.9 g/dL (32.0-36.0); MEAN CORPUSCULAR VOLUME 80 fl (80-97); MONOCYTES % (AUTO) 11.1 % (3-13); PLATELET COUNT 247 10^3/uL (150-450); RED CELL DISTRIBUTION WIDTH 18.3 % (11.5-14.0); SEGMENTED NEUTROPHILS % (AUTO) 65.6 % (42-78); TOTAL CELLS COUNTED % (AUTO) 100 %; WHITE BLOOD COUNT 8.9 10^3/uL (4.0-10.5)
[2018-01-13 05:15] LABS: ALANINE AMINOTRANSFERASE 11 U/L (21-72); ALKALINE PHOSPHATASE 75 U/L (38-126); ANION GAP 11 (5-19); ASPARTATE AMINO TRANSFERASE 14 U/L (17-59); BILIRUBIN,DIRECT 0.2 mg/dL (0.0-0.4); BILIRUBIN,TOTAL 1.1 mg/dL (0.2-1.3); BLOOD UREA NITROGEN 40 mg/dL (7-20); CALCIUM 8.2 mg/dL (8.4-10.2); CARBON DIOXIDE 29 mmol/L (22-30); CHLORIDE 92 mmol/L (98-107); GLUCOSE 190 mg/dL (75-110); POTASSIUM 4.4 mmol/L (3.6-5.0); SODIUM 132.2 mmol/L (137-145); TOTAL PROTEIN 6.5 g/dL (6.3-8.2)
[2018-01-13] MEDS: HEPARIN SOD (PORCINE) 5,000 UNIT/ML 1 ML SYRINGE SUBCUT SCH ×3 (05:24→21:47)
[2018-01-13] MEDS: LANSOPRAZOLE 30 MG TAB.RAP.DR PO SCH (06:18)
--- NOTE | 2018-01-13 07:38 | EKG REPORT ---
SEVERITY:- NORMAL ECG - SINUS RHYTHM : Confirmed by: Kwabena Uribe MD 13-Jan-2018 07:38:05
[2018-01-13] MEDS: INSULIN LISPRO 100 UNIT/ML 3 ML VIAL SUBCUT SCH ×3 (08:05→17:53)
[2018-01-13] MEDS ORDERED: SUCCINYLCHOLINE CHLORIDE INJ 200 MG/10 ML VIAL ONE (08:19)
[2018-01-13] MEDS ORDERED: BUPIVACAINE HCL 0.5 % INJ/PF 30 ML SDV ONE (09:30)
[2018-01-13] MEDS: CIPROFLOXACIN 400 MG/D5W RTU 400 MG/200 ML RTUPB IV SCH ×2 (10:16→21:32)
[2018-01-13] MEDS: FUROSEMIDE 20 MG TABLET PO SCH ×2 (10:22→17:21)
[2018-01-13] MEDS: POTASSIUM CHLORIDE 10 MEQ CAPSULE.ER PO SCH (10:22)
[2018-01-13] MEDS: FERROUS SULFATE 325 MG TABLET PO SCH ×2 (10:22→17:21)
[2018-01-13] MEDS: CITALOPRAM HYDROBROMIDE 20 MG TABLET PO SCH (10:22)
[2018-01-13] MEDS: DOCUSATE SODIUM 100 MG CAPSULE PO SCH (10:22)
[2018-01-13] MEDS: ASPIRIN 81 MG TABLET, CHEWABLE PO SCH (10:22)
[2018-01-13] MEDS: LOSARTAN POTASSIUM 50 MG TABLET PO SCH (10:22)
[2018-01-13] MEDS: ATENOLOL 50 MG TABLET PO SCH (10:22)
[2018-01-13] MEDS: INSULIN GLARGINE,HUM.REC.ANLOG 1,000 UNIT/10 ML UNIT SUBCUT SCH ×2 (10:23→21:46)
[2018-01-13] MEDS: VANCOMYCIN HCL 1,000 MG in DEXTROSE 5%-WATER 250 ML IV SCH ×2 (10:49→11:34)
--- NOTE | 2018-01-13 11:45 | PDOC PROGRESS REPORT ---
Subjective Progress Note for:: 01/13/18 Subjective:: No complaints Reason For Visit: OSTEOMYELITIS RIGHT FOOT/RIGHT DIABETIC FOOT ULCER Physical Exam Vital Signs: Temp Pulse Resp BP Pulse Ox 98.6 F 56 L 14 170/71 H 96 01/13/18 08:15 01/13/18 08:15 01/13/18 08:45 01/13/18 08:15 01/13/18 08:45 Intake & Output 01/12/18 01/13/18 01/14/18 06:59 06:59 06:59 Intake Total 1540 980 Output Total 1400 3300 Balance 140 -2320 Weight 144.6 kg 140.8 kg General appearance: PRESENT: no acute distress, cooperative Respiratory exam: PRESENT: clear to auscultation eliseo Cardiovascular exam: PRESENT: RRR Extremities exam: PRESENT: other - Right foot with a large heel wound with necrotic debris and malodorous drainage. Surrounding erythema but does not appear to track above ankle. Results Laboratory Results: 01/13/18 04:46 01/13/18 04:46 01/12/18 01/13/18 01/13/18 11:05 04:46 04:46 WBC 8.9 RBC 3.50 L Hgb 9.5 L Hct 28.1 L MCV 80 MCH 27.3 MCHC 33.9 RDW 18.3 H Plt Count 247 Seg Neutrophils % 65.6 Lymphocytes % 20.4 Monocytes % 11.1 Eosinophils % 2.1 Basophils % 0.8 Absolute Neutrophils 5.9 Absolute Lymphocytes 1.8 Absolute Monocytes 1.0 Absolute Eosinophils 0.2 Absolute Basophils 0.1 Sodium 132.2 L Potassium 4.4 Chloride 92 L Carbon Dioxide 29 Anion Gap 11 BUN 40 H Creatinine 1.29 H 1.45 H Est GFR ( Amer) > 60 > 60 Est GFR (Non-Af Amer) 57 L 49 L Glucose 190 H Calcium 8.2 L Total Bilirubin 1.1 AST 14 L ALT 11 L Alkaline Phosphatase 75 Total Protein 6.5 Albumin 3.0 L Impressions: Foot X-Ray 01/10/18 13:22 IMPRESSION: 1. Soft tissue injury along the plantar aspect of the distal calcaneus likely consistent with the patient's known ulcer. The findings as detailed above suggest osteomyelitis involving the plantar aspect of the distal calcaneus. 2. Persistent soft tissue swelling foot and ankle with decrease since the prior study. Assessment & Plan - Diagnosis (1) Diabetic foot ulcer Qualifiers: Diabetic foot ulcer location: heel Diabetes mellitus type: type 2 Laterality: right Is this a current diagnosis for this admission?: Yes Plan: Infected large diabetic heel ulcer with likely underlying osteomyelitis of the calcaneus. Will plan below the knee amputation and patient agrees with this decision. However with the surrounding erythema and malodorous drainage, I feel that a two-stage amputation will significantly decrease the risk of wound complications of the BKA stump. I have explained to the patient the risk and benefits of a two-stage amputation versus single stage amputation including risk for cardiopulmonary risk involved with the 2 separate operations and risk of bleeding, infection, possibility of eventually leading to an AKA if the BKA stump does not heal properly. Patient understands and wants to proceed. Will proceed with a guillotine amputation just above the ankle today. Patient will require BKA revision in the next several days once his infection is completely under control.
--- NOTE | 2018-01-13 11:56 | XCELERA REPORT ---
[address] [address] Transthoracic Echocardiogram Report Name: FAVIO JEFFRIES Age: 62 yrs Gender: Male : 1955 Patient Status: Inpatient Patient Location: [address] [place], [place] [address] Study Date: 01/13/2018 09:08 AM Height: 69 in Weight: 310 lb BSA: 2.5 m2 Procedure: A two-dimensional transthoracic echocardiogram with color flow and Doppler was performed. The study was technically difficult with many images being suboptimal in quality. Reason For Study: MURMUR History: MURMUR. Ordering Physician: ANA PAULA PULLIAM Performed By: Amber Carrera Interpretation Summary The left ventricle is normal in size. There is normal left ventricular wall thickness. LV EF is 60% Left ventricular systolic function is normal. Doppler measurements suggest normal left ventricular diastolic function Probably no wall motion abnormality. There is no thrombus. The right atrium is normal. The left atrium is mildly dilated. The interatrial septum is intact with no evidence for an atrial septal defect. There is no evidence of mitral valve prolapse. There is no vegetation seen on the mitral valve. There is no mitral valve stenosis. There is no aortic valvular vegetation. There is no aortic valve stenosis There is no LVOT obstruction. There is aortic sclerosis without aortic stenosis. No aortic regurgitation is present. There is no tricuspid stenosis. There is a mild amount of tricuspid regurgitation RVSP is 40 to 45 , with RA mean f 5 to 10. There is mild pulmonary hypertension by echo There is no pulmonic valvular stenosis. There is a trace amount of pulmonic regurgitation The aortic root is normal size. The inferior vena cava appeared normal and decreased > 50% with respiration (RAP 5-10 mmHg) There is no pericardial effusion. MMode/2D Measurements & Calculations RVDd: 3.2 cm LVIDd: 5.4 cm FS: 43.9 % Ao root diam: 2.9 cm IVSd: 1.1 cm LVIDs: 3.1 cm EDV(Teich): 144.1 ml Ao root area: 6.8 cm2 LVPWd: 1.1 cm ESV(Teich): 36.6 ml LA dimension: 5.1 cm EF(Teich): 74.6 % Doppler Measurements & Calculations MV E max alexa: MV P1/2t max alexa: Ao V2 max: LV V1 max P.6 cm/sec 108.6 cm/sec 109.1 cm/sec 4.3 mmHg MV A max alexa: MV P1/2t: 78.4 msec Ao max P.8 mmHgLV V1 max: 78.0 cm/sec MVA(P1/2t): 2.8 cm2 103.2 cm/sec MV E/A: 1.4 MV dec slope: 405.6 cm/sec2 MV dec time: 0.30 sec PA V2 max: TR max alexa: MV P1/2t-pr_phl: 88.8 cm/sec 293.2 cm/sec 78.4 msec PA max P.2 mmHgTR max P.4 mmHg Left Ventricle The left ventricle is normal in size. There is normal left ventricular wall thickness. LV EF is 60%. Left ventricular systolic function is normal. Doppler measurements suggest normal left ventricular diastolic function. Probably no wall motion abnormality. There is no thrombus. Right Ventricle The right ventricle is not well visualized secondary to technical limitations. Atria The right atrium is normal. The left atrium is mildly dilated. The interatrial septum is intact with no evidence for an atrial septal defect. Mitral Valve There is mild mitral annular calcification. There is no evidence of mitral valve prolapse. There is no vegetation seen on the mitral valve. There is no mitral valve stenosis. There is a trace amount of mitral regurgitation. Aortic Valve There is no aortic valvular vegetation. There is no aortic valve stenosis. There is no LVOT obstruction. There is aortic sclerosis without aortic stenosis. No aortic regurgitation is present. Tricuspid Valve There is no tricuspid stenosis. There is a mild amount of tricuspid regurgitation. RVSP is 40 to 45 , with RA mean f 5 to 10. There is mild pulmonary hypertension by echo. Pulmonic Valve There is no pulmonic valvular stenosis. There is a trace amount of pulmonic regurgitation. Great Vessels The aortic root is normal size. The inferior vena cava appeared normal and decreased > 50% with respiration (RAP 5-10 mmHg). Effusions There is no pericardial effusion. : ANA PAULA PULLIAM > Philly Carlson
[2018-01-13] MEDS ORDERED: FENTANYL CITRATE INJ/PF 100 MCG/2 ML AMPUL ONE (13:41)
[2018-01-13] MEDS ORDERED: MIDAZOLAM 2 MG/2 ML INJ ONE (13:42)
[2018-01-13] MEDS ORDERED: PROPOFOL INJ 200 MG/20 ML VIAL IV ONE (13:42)
--- NOTE | 2018-01-13 14:00 | Progress Note ---
Provider Note Provider Note: Prelimnary Cardiology Note.Formal consult to follow. Ptient will be an accepatble [facility] man for this amputation surgery. Potop recommendd to continue to monitor patient on telemetry and get serial EKG 's an cardiac enzymes.Cotinue aspirin and beta blockers.
[2018-01-13] MEDS ORDERED: BUPIVACAINE HCL/DEX-WATER/PF 15 MG/2 ML AMPULE ONE (14:07)
--- NOTE | 2018-01-13 14:54 | XCELERA REPORT ---
[address] [address] Transthoracic Echocardiogram Report Name: FAVIO JEFFRIES Age: 62 yrs Gender: Male : 1955 Patient Status: Inpatient Patient Location: [facility]A Study Date: 01/12/2018 07:44 PM Height: 69 in Weight: 318 lb BSA: 2.5 m2 Reason For Study: cardiac clearance for surgery tomorrow Ordering Physician: ALFREDO LINO Performed By: Barbara Chen Interpretation Summary Unable to interpret .Please re-do echo. Unable to interpret .Please re-do echo. MMode/2D Measurements & Calculations RVDd: 2.7 cm LVIDd: 4.5 cm FS: 28.6 % Ao root diam: 3.3 cm IVSd: 1.1 cm LVIDs: 3.2 cm EDV(Teich): 92.0 ml LVPWd: 1.1 cm ESV(Teich): 41.1 ml Ao root area: 8.8 cm2 LA dimension: 4.8 cm EF(Teich): 55.3 % Doppler Measurements & Calculations MV E max alexa: MV P1/2t max alexa: Ao V2 max: LV V1 max P.0 cm/sec 124.2 cm/sec 92.3 cm/sec 3.4 mmHg MV A max alexa: MV P1/2t: 61.3 msec Ao max P.4 mmHgLV V1 max: 97.2 cm/sec MVA(P1/2t): 3.6 cm2 91.8 cm/sec MV E/A: 0.79 MV dec slope: 593.8 cm/sec2 MV dec time: 0.24 sec PA V2 max: TR max alexa: MV P1/2t-pr_phl: 129.0 cm/sec 230.8 cm/sec 61.3 msec PA max P.7 mmHgTR max P.3 mmHg : ALFREDO LINO > Philly Carlson
[2018-01-13] MEDS ORDERED: FENTANYL CITRATE INJ/PF 100 MCG/2 ML AMPUL IV PRN ×3 (15:04)
[2018-01-13] MEDS ORDERED: PROMETHAZINE HCL INJ 25 MG/1 ML VIAL IV PRN ×2 (15:04)
[2018-01-13] MEDS ORDERED: DIPHENHYDRAMINE HCL 50 MG/ML VIAL IV PRN (15:04)
[2018-01-13] MEDS ORDERED: MORPHINE SULFATE 10 MG/ML INJ IV PRN ×2 (15:04→16:37)
[2018-01-13] MEDS ORDERED: OXYCODONE-ACETAMINOPHEN 5-325 MG TABLET PO PRN ×2 (15:04)
[2018-01-13] MEDS ORDERED: EPHEDRINE SULFATE INJ 50 MG/1 ML AMPULE ONE (15:28)
--- NOTE | 2018-01-13 16:50 | PDOC PROGRESS REPORT ---
Subjective Subjective:: He had right below amputation today by Dr Gibbs and is still at recovery room. His blood culture grew Morganella morganii and Enterococcus fecalis group D and antibiotics were adjusted accordingly. Reason For Visit: OSTEOMYELITIS RIGHT FOOT/RIGHT DIABETIC FOOT ULCER Physical Exam Vital Signs: Temp Pulse Resp BP Pulse Ox 97.6 F 67 20 159/72 H 96 01/13/18 16:01 01/13/18 16:01 01/13/18 16:01 01/13/18 16:01 01/13/18 16:01 Intake & Output 01/12/18 01/13/18 01/14/18 06:59 06:59 06:59 Intake Total 4439 999 0205 Output Total 1400 3300 410 Balance 140 -2320 850 Weight 144.6 kg 140.8 kg General appearance: PRESENT: no acute distress, cooperative, obese, well- developed, well-nourished Head exam: PRESENT: atraumatic, normocephalic Eye exam: PRESENT: EOMI, PERRLA Ear exam: PRESENT: normal external ear exam, TM's normal bilaterally Mouth exam: PRESENT: neck supple, tongue midline Neck exam: PRESENT: full ROM Respiratory exam: PRESENT: clear to auscultation eliseo, symmetrical Cardiovascular exam: PRESENT: +S1, +S2 Pulses: PRESENT: +1 pedal pulses bilateral GI/Abdominal exam: PRESENT: normal bowel sounds, soft Rectal exam: PRESENT: deferred Additional comments: s.p Right BKA. Neurological exam: PRESENT: alert, awake, oriented to person, oriented to place , oriented to time Psychiatric exam: PRESENT: normal mood Results Laboratory Results: 01/13/18 04:46 01/13/18 04:46 01/13/18 01/13/18 04:46 04:46 WBC 8.9 RBC 3.50 L Hgb 9.5 L Hct 28.1 L MCV 80 MCH 27.3 MCHC 33.9 RDW 18.3 H Plt Count 247 Seg Neutrophils % 65.6 Lymphocytes % 20.4 Monocytes % 11.1 Eosinophils % 2.1 Basophils % 0.8 Absolute Neutrophils 5.9 Absolute Lymphocytes 1.8 Absolute Monocytes 1.0 Absolute Eosinophils 0.2 Absolute Basophils 0.1 Sodium 132.2 L Potassium 4.4 Chloride 92 L Carbon Dioxide 29 Anion Gap 11 BUN 40 H Creatinine 1.45 H Est GFR ( Amer) > 60 Est GFR (Non-Af Amer) 49 L Glucose 190 H Calcium 8.2 L Total Bilirubin 1.1 AST 14 L ALT 11 L Alkaline Phosphatase 75 Total Protein 6.5 Albumin 3.0 L Impressions: Foot X-Ray 01/10/18 13:22 IMPRESSION: 1. Soft tissue injury along the plantar aspect of the distal calcaneus likely consistent with the patient's known ulcer. The findings as detailed above suggest osteomyelitis involving the plantar aspect of the distal calcaneus. 2. Persistent soft tissue swelling foot and ankle with decrease since the prior study. Assessment & Plan - Diagnosis (1) Osteomyelitis of right foot Qualifiers: Osteomyelitis type: unspecified type Qualified Code(s): M86.9 - Osteomyelitis, unspecified Is this a current diagnosis for this admission?: Yes Plan: He is s.p right below amputation; ct with Ciprofloxacin 400 mg q12h IV; Penicillin-V K 500 mg q6h po; Percocet 5/325 1 q6h prn po; Tylenol 650 mg q4h prn po. F/u surgicalist. (2) Diabetic foot ulcer Qualifiers: Diabetic foot ulcer location: heel Diabetes mellitus type: type 2 Laterality: right Is this a current diagnosis for this admission?: Yes Plan: He is s.p right BKA. Ct with Ciprofloxacin 400mg q12h IV; Penicillin-V K 500 mg q6h po; Percocet 5/325 1 q6h prn po; Tylenol 650 mg q4h prn po. F/u surgicalist. (3) Diabetes mellitus type 2 in nonobese Is this a current diagnosis for this admission?: Yes Plan: Ct with Lantus 40 iu BID subcut; Humalog 10 iu QAC;Accucheck QAC, QHS with slidding scale with humalog insulin as per [facility] protocol.1800 calorie ADA diet.Hold Metformin 500 mg BID for now. (4) Hypertension Qualifiers: Hypertension type: essential hypertension Qualified Code(s): I10 - Essential (primary) hypertension Is this a current diagnosis for this admission?: Yes Plan: Ct with Losartan 100 mg qd pO; Atenolol 100 mg qd PO; 2g sodium diet. (5) Hyperlipidemia Qualifiers: Hyperlipidemia type: mixed hyperlipidemia Qualified Code(s): E78.2 - Mixed hyperlipidemia Is this a current diagnosis for this admission?: Yes Plan: Ct with Atorvastatin 40 mg qhs po; 200 mg cholesterol diet. (6) Chronic diastolic CHF (congestive heart failure) Is this a current diagnosis for this admission?: Yes Plan: Ct with Lasix 20 mg BID PO; KCL 20 MEQ qd po; strict input/output chart; Daily weight;Monitor chemistries daily. D/C Metolazone 5 mg qd due to worsening kidney function. (7) CAD (coronary artery disease) of artery bypass graft Is this a current diagnosis for this admission?: Yes Plan: Ct with Aspirin 81 mg qd po; cardiac diet. (8) GERD (gastroesophageal reflux disease) Is this a current diagnosis for this admission?: Yes Plan: Ct with Prevacid 30 mg qd po since we do not have Omeprazole in our formulary. (9) Fe deficiency anemia Qualifiers: Iron deficiency anemia type: unspecified iron deficiency Qualified Code(s) : D50.9 - Iron deficiency anemia, unspecified Is this a current diagnosis for this admission?: Yes Plan: Ct with FeSO4 325 mg BID po; monitor CBC daily. (10) Depression Qualifiers: Depression Type: unspecified Qualified Code(s): F32.9 - Major depressive disorder, single episode, unspecified Is this a current diagnosis for this admission?: Yes Plan: Ct with Celexa 20 mg qd po. (11) Obstructive sleep apnea Is this a current diagnosis for this admission?: Yes Plan: Ct with CPAP at night. (12) DVT prophylaxis Is this a current diagnosis for this admission?: Yes Plan: Ct with Heparin 5000iu subcut q8h; SCD.
[2018-01-13] MEDS: PENICILLIN V POTASSIUM 500 MG TABLET PO SCH ×2 (17:21→21:32)
[2018-01-13] MEDS: INSULIN LISPRO 100 UNIT/ML 3 ML VIAL SUBCUT PRN (17:53)
--- NOTE | 2018-01-13 21:26 | PDOC CONSULTATION ---
Consultation-Blank Consultation: CARDIOLOGY CONSULTATION by Dr. Philly Monroy on 01/13/2018. Patient seen at 2 PM on 01/13/2018. 60 minutes spent on this patient with more than 50% of time spent in direct patient care. Discussed with the patient and patient's . Reason FOR CONSULTATION: Patient with a history of hypertension, diabetes mellitus, and coronary artery disease, history of coronary artery bypass graft surgery, cardiac murmur, for preoperative risk assessment for left leg amputation.
[2018-01-13] MEDS: ATORVASTATIN CALCIUM 40 MG TABLET PO SCH (21:32)
[2018-01-13] MEDS: ZOLPIDEM TARTRATE 5 MG TABLET PO PRN (21:32)
--- NOTE | 2018-01-13 22:30 | Operative Report ---
Operative Report DATE OF SURGERY: 01/13/18 PREOPERATIVE DIAGNOSIS: Osteomyelitis of the calcaneus on the right. Nonhealing full-thickness right heel ulcer. Diabetic foot infection. POSTOPERATIVE DIAGNOSIS: Same OPERATION: Right below the knee guillotine amputation SURGEON: SAMUEL FORMAN ANESTHESIA: GA TISSUE REMOVED OR ALTERED: Right lower leg amputated just above the ankle, necrotic tissue from the heel submitted for Gram stain and culture. Tissue from the amputation level submitted for Gram stain and culture. COMPLICATIONS: None ESTIMATED BLOOD LOSS: 100cc INTRAOPERATIVE FINDINGS: Foul-smelling seropurulent fluid drainage from full- thickness necrotic heel ulcer with exposed calcaneus. PROCEDURE: Informed consent was obtained. Patient was brought to the operating room and placed on the operating table in the supine position. After satisfactory induction of general anesthesia patient's right foot was wrapped and his right leg was prepped and draped in usual sterile fashion. Just above the ankle on the right side circumferential incision was made. Electrocautery was used during the guillotine amputation. Muscles and ligaments were divided using electrocautery. Vessels were taken by clamping dividing and tying. As were nerves. The tibia and the fibula were transected with an oscillating bone saw. The leg was taken off. Muscle at this level of amputation was excised and small pieces for Gram stain and culture. The foot wound was debrided off the table with necrotic tissue submitted for Gram stain and culture. Hemostasis appeared excellent. The wound was then dressed with a compressive dressing. Patient tolerated procedure well with no apparent complications and was taken to the recovery area in stable condition.
--- NOTE | 2018-01-14 00:08 | PDOC PROGRESS REPORT ---
Subjective Progress Note for:: 01/14/18 Subjective:: Comfortable. No complaints Reason For Visit: OSTEOMYELITIS RIGHT FOOT/RIGHT DIABETIC FOOT ULCER Physical Exam Vital Signs: Temp Pulse Resp BP Pulse Ox 98.1 F 61 16 137/52 H 99 01/13/18 18:50 01/13/18 19:00 01/13/18 18:50 01/13/18 18:50 01/13/18 18:50 Intake & Output 01/12/18 01/13/18 01/14/18 06:59 06:59 06:59 Intake Total 3911 310 9425 Output Total 1400 3300 610 Balance 140 -2320 1400 Weight 144.6 kg 140.8 kg General appearance: PRESENT: no acute distress, cooperative Cardiovascular exam: PRESENT: RRR Extremities exam: PRESENT: other - Dressings are intact there is blood staining to the dressing. Results Laboratory Results: 01/13/18 04:46 01/13/18 04:46 01/13/18 01/13/18 04:46 04:46 WBC 8.9 RBC 3.50 L Hgb 9.5 L Hct 28.1 L MCV 80 MCH 27.3 MCHC 33.9 RDW 18.3 H Plt Count 247 Seg Neutrophils % 65.6 Lymphocytes % 20.4 Monocytes % 11.1 Eosinophils % 2.1 Basophils % 0.8 Absolute Neutrophils 5.9 Absolute Lymphocytes 1.8 Absolute Monocytes 1.0 Absolute Eosinophils 0.2 Absolute Basophils 0.1 Sodium 132.2 L Potassium 4.4 Chloride 92 L Carbon Dioxide 29 Anion Gap 11 BUN 40 H Creatinine 1.45 H Est GFR ( Amer) > 60 Est GFR (Non-Af Amer) 49 L Glucose 190 H Calcium 8.2 L Total Bilirubin 1.1 AST 14 L ALT 11 L Alkaline Phosphatase 75 Total Protein 6.5 Albumin 3.0 L Impressions: Foot X-Ray 01/10/18 13:22 IMPRESSION: 1. Soft tissue injury along the plantar aspect of the distal calcaneus likely consistent with the patient's known ulcer. The findings as detailed above suggest osteomyelitis involving the plantar aspect of the distal calcaneus. 2. Persistent soft tissue swelling foot and ankle with decrease since the prior study. Assessment & Plan - Diagnosis (1) Diabetic foot ulcer Qualifiers: Diabetic foot ulcer location: heel Diabetes mellitus type: type 2 Laterality: right Is this a current diagnosis for this admission?: Yes (2) Osteomyelitis of right foot Qualifiers: Osteomyelitis type: unspecified type Qualified Code(s): M86.9 - Osteomyelitis, unspecified Is this a current diagnosis for this admission?: Yes Plan: Along with infected diabetic nonhealing heel ulcer. Status post right guillotine amputation. Patient looks well postoperatively.
[2018-01-14] MEDS: PENICILLIN V POTASSIUM 500 MG TABLET PO SCH ×2 (03:11→11:00)
[2018-01-14 05:23] LABS: ABSOLUTE BASOPHILS # (AUTO) 0.1 10^3/uL (0.0-0.2); ABSOLUTE EOSINOPHILS # (AUTO) 0.2 10^3/uL (0.0-0.6); ABSOLUTE LYMPHOCYTES (AUTO) 1.5 10^3/uL (0.5-4.7); ABSOLUTE MONOCYTES (AUTO) 0.8 10^3/uL (0.1-1.4); ABSOLUTE NEUT (AUTO) 6.6 10^3/uL (1.7-8.2); BASOPHILS % (AUTO) 0.8 % (0-2); HEMATOCRIT 29.5 % (37.9-51.0); HEMOGLOBIN 9.9 g/dL (13.5-17.0); LYMPHOCYTES % (AUTO) 16.5 % (13-45); MEAN CORPUSCULAR HEMOGLOBIN 26.9 pg (27.0-33.4); MEAN CORPUSCULAR HGB CONC 33.6 g/dL (32.0-36.0); MEAN CORPUSCULAR VOLUME 80 fl (80-97); MONOCYTES % (AUTO) 8.2 % (3-13); PLATELET COUNT 250 10^3/uL (150-450); RED BLOOD COUNT 3.69 10^6/uL (4.35-5.55); RED CELL DISTRIBUTION WIDTH 17.5 % (11.5-14.0); SEGMENTED NEUTROPHILS % (AUTO) 72.5 % (42-78); TOTAL CELLS COUNTED % (AUTO) 100 %; WHITE BLOOD COUNT 9.2 10^3/uL (4.0-10.5)
[2018-01-14] MEDS: HEPARIN SOD (PORCINE) 5,000 UNIT/ML 1 ML SYRINGE SUBCUT SCH ×2 (05:37→13:52)
[2018-01-14 05:44] LABS: ALANINE AMINOTRANSFERASE 20 U/L (21-72); ALBUMIN 3.1 g/dL (3.5-5.0); ALKALINE PHOSPHATASE 73 U/L (38-126); ANION GAP 11 (5-19); ASPARTATE AMINO TRANSFERASE 15 U/L (17-59); BILIRUBIN,DIRECT 0.2 mg/dL (0.0-0.4); BILIRUBIN,TOTAL 0.9 mg/dL (0.2-1.3); BLOOD UREA NITROGEN 40 mg/dL (7-20); CALCIUM 8.3 mg/dL (8.4-10.2); CARBON DIOXIDE 31 mmol/L (22-30); CHLORIDE 90 mmol/L (98-107); GLUCOSE 204 mg/dL (75-110); POTASSIUM 4.4 mmol/L (3.6-5.0); SODIUM 131.6 mmol/L (137-145); TOTAL PROTEIN 6.5 g/dL (6.3-8.2)
[2018-01-14] MEDS: LANSOPRAZOLE 30 MG TAB.RAP.DR PO SCH (05:52)
[2018-01-14] MEDS: FUROSEMIDE 20 MG TABLET PO SCH (10:56)
[2018-01-14] MEDS: POTASSIUM CHLORIDE 10 MEQ CAPSULE.ER PO SCH (10:57)
[2018-01-14] MEDS: LOSARTAN POTASSIUM 50 MG TABLET PO SCH (10:57)
[2018-01-14] MEDS: CIPROFLOXACIN 400 MG/D5W RTU 400 MG/200 ML RTUPB IV SCH ×2 (10:57→21:24)
[2018-01-14] MEDS: ATENOLOL 50 MG TABLET PO SCH (10:57)
[2018-01-14] MEDS: FERROUS SULFATE 325 MG TABLET PO SCH ×2 (10:57→17:05)
[2018-01-14] MEDS: CITALOPRAM HYDROBROMIDE 20 MG TABLET PO SCH (10:57)
[2018-01-14] MEDS: DOCUSATE SODIUM 100 MG CAPSULE PO SCH (10:57)
[2018-01-14] MEDS: ASPIRIN 81 MG TABLET, CHEWABLE PO SCH (10:57)
[2018-01-14] MEDS: INSULIN LISPRO 100 UNIT/ML 3 ML VIAL SUBCUT SCH ×3 (10:58→17:06)
[2018-01-14] MEDS: INSULIN GLARGINE,HUM.REC.ANLOG 1,000 UNIT/10 ML UNIT SUBCUT SCH ×2 (10:59→21:31)
--- NOTE | 2018-01-14 11:12 | PDOC PROGRESS REPORT ---
Subjective Progress Note for:: 01/14/18 Subjective:: comfortable Reason For Visit: OSTEOMYELITIS RIGHT FOOT/RIGHT DIABETIC FOOT ULCER Physical Exam Vital Signs: Temp Pulse Resp BP Pulse Ox 98.5 F 66 10 L 118/55 L 97 01/14/18 08:00 01/14/18 08:00 01/14/18 08:00 01/14/18 08:00 01/14/18 08:00 Intake & Output 01/13/18 01/14/18 01/15/18 06:59 06:59 06:59 Intake Total 980 2010 Output Total 3300 610 Balance -2320 1400 Weight 140.8 kg 140.8 kg General appearance: PRESENT: no acute distress Extremities exam: PRESENT: other - RLE: guillottine amputation site covered by dressing stained with old blood; no cellulitis of the leg noted Results Laboratory Results: 01/14/18 04:49 01/14/18 04:49 01/14/18 01/14/18 04:49 04:49 WBC 9.2 RBC 3.69 L Hgb 9.9 L Hct 29.5 L MCV 80 MCH 26.9 L MCHC 33.6 RDW 17.5 H Plt Count 250 Seg Neutrophils % 72.5 Lymphocytes % 16.5 Monocytes % 8.2 Eosinophils % 2.0 Basophils % 0.8 Absolute Neutrophils 6.6 Absolute Lymphocytes 1.5 Absolute Monocytes 0.8 Absolute Eosinophils 0.2 Absolute Basophils 0.1 Sodium 131.6 L Potassium 4.4 Chloride 90 L Carbon Dioxide 31 H Anion Gap 11 BUN 40 H Creatinine 1.58 H Est GFR ( Amer) 54 L Est GFR (Non-Af Amer) 45 L Glucose 204 H Calcium 8.3 L Total Bilirubin 0.9 AST 15 L ALT 20 L Alkaline Phosphatase 73 Total Protein 6.5 Albumin 3.1 L Impressions: Foot X-Ray 01/10/18 13:22 IMPRESSION: 1. Soft tissue injury along the plantar aspect of the distal calcaneus likely consistent with the patient's known ulcer. The findings as detailed above suggest osteomyelitis involving the plantar aspect of the distal calcaneus. 2. Persistent soft tissue swelling foot and ankle with decrease since the prior study. Assessment & Plan - Diagnosis (1) Diabetic foot ulcer Qualifiers: Diabetic foot ulcer location: heel Diabetes mellitus type: type 2 Laterality: right Is this a current diagnosis for this admission?: Yes (2) Osteomyelitis of right foot Qualifiers: Osteomyelitis type: unspecified type Qualified Code(s): M86.9 - Osteomyelitis, unspecified Is this a current diagnosis for this admission?: Yes - Plan Summary Plan Summary: A/ POD#1 after RLE below knee guillotine amputation for right foot non-healing infected ulcer and osteomylelitis VSS, AF PE shows dressings slightly stained with old blood Blood work WNL, elevated BUN/creatinine as preop Good UO P/ Continue IV Abx Plan final revision of guillotine amputation with formal BKA tomorrow. IVF tonight NPO after midnight Procedure, risks, benefits explained to the patient, his questions were answered , and he decides to proceed
[2018-01-14] MEDS ORDERED: GLUCAGON,HUMAN RECOMB 1 MG INJ SUBCUT PRN (11:16)
[2018-01-14] MEDS ORDERED: DEXTROSE 40% GEL 15 GM TUBE PO PRN ×2 (11:16)
[2018-01-14] MEDS ORDERED: DEXTROSE 50%-WATER 25 GM/50 ML DISP.SYRIN IV PRN ×2 (11:16)
[2018-01-14] MEDS: INSULIN LISPRO 100 UNIT/ML 3 ML VIAL SUBCUT PRN ×2 (12:32→21:28)
[2018-01-14] MEDS ORDERED: PENICILLIN G-K 5 MILLION UNIT VIAL IV SCH (16:15)
--- NOTE | 2018-01-14 16:19 | PDOC PROGRESS REPORT ---
Subjective Progress Note for:: 01/14/18 Subjective:: Day 1 Post -OP. He has no new complaints. He was seen by surgicalist today and he plans for revision of gulloitine procedure and definitive right below knee amputation tomorrow, so pt will be NPO from midnight. He was seen by associate media planner and they contacted Dr Salcido with [facility] for acute REHAB.We will decrease his Lasix to 20 mg qd due to worsening BUN/Cr and he is getting 1 Liter of normal saline cautiously due to Hx of CHF. Reason For Visit: OSTEOMYELITIS RIGHT FOOT/RIGHT DIABETIC FOOT ULCER Physical Exam Vital Signs: Temp Pulse Resp BP Pulse Ox 98.5 F 66 10 L 118/55 L 97 01/14/18 08:00 01/14/18 08:00 01/14/18 08:00 01/14/18 08:00 01/14/18 08:00 Intake & Output 01/13/18 01/14/18 01/15/18 06:59 06:59 06:59 Intake Total 980 2010 Output Total 3300 610 Balance -2320 1400 Weight 140.8 kg 140.8 kg General appearance: PRESENT: no acute distress, cooperative, obese, well- developed Head exam: PRESENT: atraumatic, normocephalic Eye exam: PRESENT: EOMI, PERRLA Mouth exam: PRESENT: neck supple, tongue midline Neck exam: PRESENT: full ROM Respiratory exam: PRESENT: clear to auscultation eliseo, symmetrical Cardiovascular exam: PRESENT: +S2 Pulses: PRESENT: +1 pedal pulses bilateral GI/Abdominal exam: PRESENT: normal bowel sounds, soft Rectal exam: PRESENT: deferred Additional comments: s.p right BKA. Neurological exam: PRESENT: alert, awake, oriented to person, oriented to place , oriented to time Psychiatric exam: PRESENT: normal mood Results Laboratory Results: 01/14/18 04:49 01/14/18 04:49 01/14/18 01/14/18 04:49 04:49 WBC 9.2 RBC 3.69 L Hgb 9.9 L Hct 29.5 L MCV 80 MCH 26.9 L MCHC 33.6 RDW 17.5 H Plt Count 250 Seg Neutrophils % 72.5 Lymphocytes % 16.5 Monocytes % 8.2 Eosinophils % 2.0 Basophils % 0.8 Absolute Neutrophils 6.6 Absolute Lymphocytes 1.5 Absolute Monocytes 0.8 Absolute Eosinophils 0.2 Absolute Basophils 0.1 Sodium 131.6 L Potassium 4.4 Chloride 90 L Carbon Dioxide 31 H Anion Gap 11 BUN 40 H Creatinine 1.58 H Est GFR ( Amer) 54 L Est GFR (Non-Af Amer) 45 L Glucose 204 H Calcium 8.3 L Total Bilirubin 0.9 AST 15 L ALT 20 L Alkaline Phosphatase 73 Total Protein 6.5 Albumin 3.1 L 01/14/18 12:03 Troponin I < 0.012 Impressions: Foot X-Ray 01/10/18 13:22 IMPRESSION: 1. Soft tissue injury along the plantar aspect of the distal calcaneus likely consistent with the patient's known ulcer. The findings as detailed above suggest osteomyelitis involving the plantar aspect of the distal calcaneus. 2. Persistent soft tissue swelling foot and ankle with decrease since the prior study. Assessment & Plan - Diagnosis (1) Osteomyelitis of right foot Qualifiers: Osteomyelitis type: unspecified type Qualified Code(s): M86.9 - Osteomyelitis, unspecified Is this a current diagnosis for this admission?: Yes Plan: He is s.p right below amputation; ct with Ciprofloxacin 400 mg q12h IV; Penicillin-G 400 mg q6h IV; Percocet 5/325 1 q6h prn po; Tylenol 650 mg q4h prn po. F/u surgicalist. (2) Diabetic foot ulcer Qualifiers: Diabetic foot ulcer location: heel Diabetes mellitus type: type 2 Laterality: right Is this a current diagnosis for this admission?: Yes Plan: He is s.p right BKA. Ct with Ciprofloxacin 400mg q12h IV; Penicillin-G 400 mg q6h IV; Percocet 5/325 1 q6h prn po; Tylenol 650 mg q4h prn po. F/u surgicalist. (3) Diabetes mellitus type 2 in nonobese Is this a current diagnosis for this admission?: Yes Plan: Ct with Lantus 40 iu BID subcut; Humalog 10 iu QAC;Accucheck QAC, QHS with slidding scale with humalog insulin as per [facility] protocol.1800 calorie ADA diet.Hold Metformin 500 mg BID for now. (4) Hypertension Qualifiers: Hypertension type: essential hypertension Qualified Code(s): I10 - Essential (primary) hypertension Is this a current diagnosis for this admission?: Yes Plan: Ct with Losartan 100 mg qd pO; Atenolol 100 mg qd PO; 2g sodium diet. (5) Hyperlipidemia Qualifiers: Hyperlipidemia type: mixed hyperlipidemia Qualified Code(s): E78.2 - Mixed hyperlipidemia Is this a current diagnosis for this admission?: Yes Plan: Ct with Atorvastatin 40 mg qhs po; 200 mg cholesterol diet. (6) Chronic diastolic CHF (congestive heart failure) Is this a current diagnosis for this admission?: Yes Plan: Ct with Lasix 20 mg daily PO; KCL 20 MEQ qd po; strict input/output chart; Daily weight;Monitor chemistries daily. D/C Metolazone 5 mg qd due to worsening kidney function. (7) CAD (coronary artery disease) of artery bypass graft Is this a current diagnosis for this admission?: Yes Plan: Ct with Aspirin 81 mg qd po; cardiac diet. (8) GERD (gastroesophageal reflux disease) Is this a current diagnosis for this admission?: Yes Plan: Ct with Prevacid 30 mg qd po since we do not have Omeprazole in our formulary. (9) Fe deficiency anemia Qualifiers: Iron deficiency anemia type: unspecified iron deficiency Qualified Code(s) : D50.9 - Iron deficiency anemia, unspecified Is this a current diagnosis for this admission?: Yes Plan: Ct with FeSO4 325 mg BID po; monitor CBC daily. (10) Depression Qualifiers: Depression Type: unspecified Qualified Code(s): F32.9 - Major depressive disorder, single episode, unspecified Is this a current diagnosis for this admission?: Yes Plan: Ct with Celexa 20 mg qd po. (11) Obstructive sleep apnea Is this a current diagnosis for this admission?: Yes Plan: Ct with CPAP at night. (12) DVT prophylaxis Is this a current diagnosis for this admission?: Yes Plan: Ct with Heparin 5000iu subcut q8h; SCD.
[2018-01-14] MEDS: PENICILLIN G POTASSIUM 5,000,000 UNIT in DEXTROSE 5%-WATER 100 ML IV SCH (17:52)
--- NOTE | 2018-01-14 18:44 | Progress Note ---
Provider Note Provider Note: ID Consult Note Asked to review chart by Pharmacy. Pt not seen or examined. Bartolo Neal is a 62 year old man with PMH including DM with peripheral neuropathy, HTN, HLD, CHF, and CAD who presented on 01/10/18 with worsening chronic DM heel ulcer with increased swelling, erythema and drainage. Pt denied fever or chills. On exam, pt had BLE edema, no palpable RLE DP or PT pulse, tender swollen insensate R foot with induration, erythema and increased warmth about a malodorous full- thickness ulcer with regions of necross encompassing almost the entire plantar surface of the heel with little tissue overlying the bone itself and serosanginous drainage. He did not have a murmur documented on exam. Pt was initially afebrile, had a fever on 01/11 to 100.8 F, and has been afebrile since. BCx drawn, empiric abx initiated, and Surgery consulted. Ultimately pt agreed to amputation and underwent R BKA guillotine amputation on 01/13. Per operative note, necrotic tissue from the heel and from the amputation level were submitted for Gram stain and culture. Pt currently reported to be doing well post-op. VSS, AF, no cellulitis appreciated on exam. Labs: WBC count on admission was mildly elevated 10.8 but has since been WNL. SCr 1.4-1.6. Imaging: Plain films of the foot confirmed osteomyelitis of the R heel. TTE this admission showed trace MR, no AR, no AoV or MV vegetation. Cultures: BCx drawn on admission 01/10 showed growth of Morganella morganii from 1 bottle of one set (reported susceptible to cefepime, Rocephin, Cipro, Levaquin, ertapenem, Zosyn and resistant to Unasyn, cefuroxime, cefazolin, Bactrim) and Enterococcus faecalis from 1 bottle of the other set, penicillin sensitive. Culture from the R foot preliminarily reported with 4+ GNRs, 3+ of a second GNR , and 3+ GPCs in clusters. Amputation site cx has no bacteria on Gram stain and no growth x 1 day. Abx: IV Vancomycin, 01/10-01/13 PO penicillin VK 500 q6h, 01/13-01/14 IV penicillin 5000 units q 6h IV Cipro 400 q12h, 01/13 to present Impression/Recommendations 1 . 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 Unfortunately, this is not the case. However, he will not require a long course of broad spectrum antibiotics as the osteomyelitis has been definitively managed. 2. Polymicrobial bacteremia with Morganella and Enterococcus faecalis, secondary to infected diabetic foot - For uncomplicated Gram negative bacteremia due to Enterobacteriaceae such as Morganella, the total duration of therapy can be as short as 7-10 days in duration. Source control has been achieved, and the patient appears to be doing well. Recommend completion of 7 days of ciprofloxacin, which can be accomplished with either IV Cipro (or PO Cipro rather than IV, as long as the patient can be instructed to hold any his iron supplementation while taking PO Cipro to avoid chelating Cipro and reducing its levels with co-administration.) - The patient also had bacteremia with Enterococcus faecalis, also presumably from the foot, Although no repeat cultures were obtained, the bacteremia was low grade, the source has been removed, the patient has improved, no murmur has been documented on exam, and TTE is negative. The patient has already received IV vancomycin for 4 days (01/10-01/13) and is now on IV penicillin. Suggest completing another 3 days of therapy with IV penicillin or about 7 days in total. Vishal Jewell MD [facility]
--- NOTE | 2018-01-14 19:24 | EKG REPORT ---
SEVERITY:- NORMAL ECG - SINUS RHYTHM : Confirmed by: Kwabena Uribe MD 14-Jan-2018 19:23:26
[2018-01-14] MEDS: ATORVASTATIN CALCIUM 40 MG TABLET PO SCH (21:19)
[2018-01-14] MEDS: ZOLPIDEM TARTRATE 5 MG TABLET PO PRN (21:19)
--- NOTE | 2018-01-14 21:48 | Progress Note ---
Provider Note Provider Note: Cardiology Progress Note on 01/14/[address] Philly Carlson. SUBJECTIVE: The patient underwent partial amputation of his right foot about the ankle yesterday. He is going to have a staged procedure. The patient denies any chest pain or discomfort. There is no PND orthopnea. There is no palpitations, and no arrhythmias seen. The patient has chronic leg edema, which is not increased. There is no arrhythmias seen on the monitor. PHYSICAL EXAMINATION: On examination the patient is morbidly obese. In no acute distress. He is well-groomed. 01/14/18 08:00 Temperature 98.5 F Temperature Oral Source Pulse Rate 66 Respiratory 10 L Rate Blood Pressure 118/55 L [1] Blood Pressure 76 Mean [1] Blood Pressure Supine Position [1] O2 Sat by Pulse 97 Oximetry Oxygen Delivery CPAP Method ( includes room air) HEAD: Is atraumatic normocephalic. EYES: Pupils are equal round regular reactive to light accommodation. Extraocular movements are normal. There is no clinical pallor there is no scleral icterus. ENT: Is negative. NECK: Is supple. There is no JVD. Carotids are equal there is no bruits. There is no lymphadenopathy. Trachea central. Lungs are clear to auscultation percussion. There is no chest wall tenderness. S1-S2 is heard. There is no S3 gallop. There is no S4 gallop. There is systolic murmur left sternal border and the apex. There is no rub. Abdomen is soft nontender. There is no hepatosplenomegaly. Bowel sounds well heard. EXTREMITIES: Femorals are diminished. There is no femoral bruits. Leg pulses are diminished. There is a bandage in the right site of foot amputation. This is clean and dry. Leg pulses on the left side is decreased. There is trace chronic edema bilaterally. There is no cyanosis or clubbing. There is no cellulitis. CAFETERIA ASSISTANT: The patient is conscious awake alert oriented x3 with no focal deficits. PSYCHIATRIC: The patient judgment and insight are intact his affect is normal. 01/14/18 01/14/18 01/14/18 04:49 04:49 12:03 WBC 9.2 RBC 3.69 L Hgb 9.9 L Hct 29.5 L Plt Count 250 Sodium 131.6 L Potassium 4.4 Chloride 90 L Carbon Dioxide 31 H Anion Gap 11 BUN 40 H Creatinine 1.58 H Est GFR (Non-Af Amer) 45 L Glucose 204 H Calcium 8.3 L Total Bilirubin 0.9 Direct Bilirubin 0.2 Neonat Total Bilirubin Not Reportable Neonat Direct Bilirubin Not Reportable Neonat Indirect Bili Not Reportable AST 15 L ALT 20 L Alkaline Phosphatase 73 Troponin I < 0.012 Total Protein 6.5 Albumin 3.1 L EKG: Is within normal limits. His troponin I is negative. IMPRESSION/RECOMMENDATION: 1. Status post staged amputation of right lower extremity. Patient to have more amputation procedure on the right leg. Next 2. Coronary artery disease. History of coronary bypass graft surgery. Records awaited. No [place] this admission. EKG is within normal limits. Continue his beta-lydia and aspirin. 3. HYPERTENSION: Blood pressure well controlled. 4. DIABETES MELLITUS: Continue antidiabetic medications. Check blood sugars periodically as is being done. 6. History of sleep apnea: Continue CPAP. 7. Morbid Obesity. His medications reviewed. Plan of care discussed with the surgical list and the attending physician on the case. Medical decision making is of moderate to high complexity. 40 minutes spent on this patient more than 50% of time spent in direct patient care. We will follow with you. Thanking you end of dictation
[2018-01-14] MEDS ORDERED: NORMAL SALINE 1000 ML 1,000 ML IV PRN (23:00)
[2018-01-15] MEDS: PENICILLIN G POTASSIUM 5,000,000 UNIT in DEXTROSE 5%-WATER 100 ML IV SCH ×4 (00:27→18:34)
[2018-01-15 05:46] LABS: ABSOLUTE BASOPHILS # (AUTO) 0.1 10^3/uL (0.0-0.2); ABSOLUTE EOSINOPHILS # (AUTO) 0.2 10^3/uL (0.0-0.6); ABSOLUTE LYMPHOCYTES (AUTO) 2.1 10^3/uL (0.5-4.7); ABSOLUTE MONOCYTES (AUTO) 0.8 10^3/uL (0.1-1.4); ABSOLUTE NEUT (AUTO) 5.9 10^3/uL (1.7-8.2); BASOPHILS % (AUTO) 1.2 % (0-2); EOSINOPHILS % (AUTO) 2.1 % (0-6); HEMATOCRIT 28.7 % (37.9-51.0); HEMOGLOBIN 9.7 g/dL (13.5-17.0); LYMPHOCYTES % (AUTO) 22.9 % (13-45); MEAN CORPUSCULAR HEMOGLOBIN 27.3 pg (27.0-33.4); MEAN CORPUSCULAR HGB CONC 33.9 g/dL (32.0-36.0); MEAN CORPUSCULAR VOLUME 81 fl (80-97); MONOCYTES % (AUTO) 8.8 % (3-13); PLATELET COUNT 290 10^3/uL (150-450); RED BLOOD COUNT 3.56 10^6/uL (4.35-5.55); RED CELL DISTRIBUTION WIDTH 17.7 % (11.5-14.0); TOTAL CELLS COUNTED % (AUTO) 100 %
[2018-01-15 06:07] LABS: ALANINE AMINOTRANSFERASE 15 U/L (21-72); ALKALINE PHOSPHATASE 75 U/L (38-126); ANION GAP 12 (5-19); ASPARTATE AMINO TRANSFERASE 16 U/L (17-59); BILIRUBIN,DIRECT 0.2 mg/dL (0.0-0.4); BILIRUBIN,TOTAL 0.7 mg/dL (0.2-1.3); BLOOD UREA NITROGEN 48 mg/dL (7-20); CALCIUM 8.2 mg/dL (8.4-10.2); CARBON DIOXIDE 28 mmol/L (22-30); CHLORIDE 91 mmol/L (98-107); GLUCOSE 239 mg/dL (75-110); POTASSIUM 4.5 mmol/L (3.6-5.0); SODIUM 131.3 mmol/L (137-145); TOTAL PROTEIN 6.4 g/dL (6.3-8.2)
[2018-01-15] MEDS: LANSOPRAZOLE 30 MG TAB.RAP.DR PO SCH (06:14)
[2018-01-15] MEDS ORDERED: MIDAZOLAM 2 MG/2 ML INJ ONE (07:32)
[2018-01-15] MEDS ORDERED: FENTANYL CITRATE INJ/PF 250 MCG/5 ML AMPULE ONE (07:32)
[2018-01-15] MEDS ORDERED: HYDROMORPHONE HCL INJ/PF 2 MG/ML AMPULE ONE (07:32)
[2018-01-15] MEDS ORDERED: ONDANSETRON HCL INJ/PF 4 MG/2 ML SDV ONE (07:32)
[2018-01-15] MEDS ORDERED: DEXAMETHASONE SOD PHOSPHATE INJ 4 MG/1 ML VIAL ONE (07:32)
[2018-01-15] MEDS ORDERED: ACETAMINOPHEN 1,000 MG/100 ML RTUPB IV ONE (07:33)
[2018-01-15] MEDS ORDERED: PROPOFOL INJ 200 MG/20 ML VIAL IV ONE (07:33)
[2018-01-15] MEDS ORDERED: DIPHENHYDRAMINE HCL 50 MG/ML VIAL IV PRN (08:45)
[2018-01-15] MEDS ORDERED: MEPERIDINE HCL/PF INJ 25 MG/1 ML DISP.SYRIN IV PRN (08:45)
[2018-01-15] MEDS ORDERED: ONDANSETRON HCL INJ/PF 4 MG/2 ML SDV IV PRN (08:45)
[2018-01-15] MEDS ORDERED: LABETALOL HCL INJ 20 MG/4 ML DISP.SYRIN IV PRN (08:45)
[2018-01-15] MEDS ORDERED: MORPHINE SULFATE 10 MG/ML INJ IV PRN (08:45)
[2018-01-15] MEDS ORDERED: PROMETHAZINE HCL INJ 25 MG/1 ML VIAL IV PRN (08:45)
[2018-01-15] MEDS ORDERED: FENTANYL CITRATE INJ/PF 100 MCG/2 ML AMPUL IV PRN ×3 (08:45)
[2018-01-15] MEDS ORDERED: FUROSEMIDE 20 MG TABLET PO SCH (10:00)
--- NOTE | 2018-01-15 10:19 | Operative Report ---
Nonrecallable Operative Report DATE OF SURGERY: 01/15/18 PREOPERATIVE DIAGNOSIS: right foot osteomyelitis. s/p right distal leg guillottine amputation POSTOPERATIVE DIAGNOSIS: same OPERATION: Right completion below knee amputation SURGEON: JESSE CROCKER ANESTHESIA: GA TISSUE REMOVED OR ALTERED: right leg COMPLICATIONS: none ESTIMATED BLOOD LOSS: < 5 mL INTRAOPERATIVE FINDINGS: s/p right guillottine amputation PROCEDURE: see dictation
[2018-01-15] MEDS: INSULIN LISPRO 100 UNIT/ML 3 ML VIAL SUBCUT PRN ×3 (10:31→22:13)
[2018-01-15] MEDS ORDERED: INSULIN LISPRO 100 UNIT/ML 3 ML VIAL ONE (10:32)
[2018-01-15] MEDS ORDERED: ACETAMINOPHEN 1,000 MG/100 ML RTUPB IV PRN (11:14)
[2018-01-15] MEDS: CIPROFLOXACIN 400 MG/D5W RTU 400 MG/200 ML RTUPB IV SCH ×2 (12:06→22:04)
[2018-01-15] MEDS: INSULIN GLARGINE,HUM.REC.ANLOG 1,000 UNIT/10 ML UNIT SUBCUT SCH ×2 (12:08→22:08)
[2018-01-15] MEDS: INSULIN LISPRO 100 UNIT/ML 3 ML VIAL SUBCUT SCH ×3 (13:27→16:32)
[2018-01-15] MEDS: ATENOLOL 50 MG TABLET PO SCH (13:28)
[2018-01-15] MEDS: LOSARTAN POTASSIUM 50 MG TABLET PO SCH ×2 (13:28→16:59)
[2018-01-15] MEDS: FERROUS SULFATE 325 MG TABLET PO SCH ×2 (13:28→16:59)
[2018-01-15] MEDS: DOCUSATE SODIUM 100 MG CAPSULE PO SCH (13:28)
[2018-01-15] MEDS: CITALOPRAM HYDROBROMIDE 20 MG TABLET PO SCH (13:28)
[2018-01-15] MEDS: POTASSIUM CHLORIDE 10 MEQ CAPSULE.ER PO SCH (13:28)
[2018-01-15] MEDS: MORPHINE SULFATE 10 MG/ML INJ IV PRN ×4 (14:54→22:12)
[2018-01-15] MEDS ORDERED: (PENDING PHARMACY ID) (Insulin Aspart [Novolog Insulin (Aspart) 100 Unit/Ml] 10 UNIT) SQ SCH (16:00)
[2018-01-15] MEDS ORDERED: SUCCINYLCHOLINE CHLORIDE INJ 200 MG/10 ML VIAL ONE (16:00)
[2018-01-15] MEDS: METOCLOPRAMIDE HCL 10 MG TABLET PO SCH ×2 (16:49→18:33)
[2018-01-15] MEDS: METFORMIN HCL 500 MG TABLET PO SCH (16:59)
--- NOTE | 2018-01-15 17:53 | PDOC PROGRESS REPORT ---
Subjective Progress Note for:: 01/15/18 Subjective:: He had to go back to the OR today for revision of his BKA so that it would be better suited for a prosthetic once it heals. He has had a lot of problems with his blood sugar since he got back from the OR. He was out of it from the anesthesia but was awake and protecting his airway. Reason For Visit: OSTEOMYELITIS RIGHT FOOT/RIGHT DIABETIC FOOT ULCER Physical Exam Vital Signs: Temp Pulse Resp BP Pulse Ox 97.4 F 65 12 169/70 H 100 01/15/18 16:42 01/15/18 16:42 01/15/18 16:42 01/15/18 16:42 01/15/18 16:42 Pulse Oximeter Continuous Start: 01/15/18 12: 42 Freq: RTQ4 Status: Active Document 01/15/18 15:50 [facility] (Rec: 01/15/18 17:47 [facility] [id number]) Pulse Oximetry Assessment Oxygen Saturation (92-100) 99 Oxygen Flow Rate (L/min) 3 Oxygen Delivery Method Nasal Cannula Equipment Usage Equipment in Use Continuous SpO2 Machine # 2 Intake & Output 01/14/18 01/15/18 01/16/18 06:59 06:59 06:59 Intake Total 2009 1019 3268 Output Total 610 1690 1200 Balance 1400 -670 2068 Weight 140.8 kg 143.2 kg General appearance: PRESENT: no acute distress, disheveled, morbidly obese Respiratory exam: PRESENT: clear to auscultation eliseo, unlabored. ABSENT: accessory muscle use, rales, rhonchi, tachypnea, wheezes Cardiovascular exam: PRESENT: irregular rhythm GI/Abdominal exam: PRESENT: normal bowel sounds, soft. ABSENT: distended, guarding, rebound, tenderness Extremities exam: PRESENT: other - His right BKA stump was covered in a heavy bandage Neurological exam: PRESENT: awake. ABSENT: alert - He was still somewhat under the influence of anesthesia when I saw him postoperatively Results Laboratory Results: 01/15/18 04:27 01/15/18 04:27 01/15/18 01/15/18 04:27 04:27 WBC 9.0 RBC 3.56 L Hgb 9.7 L Hct 28.7 L MCV 81 MCH 27.3 MCHC 33.9 RDW 17.7 H Plt Count 290 Seg Neutrophils % 65.0 Lymphocytes % 22.9 Monocytes % 8.8 Eosinophils % 2.1 Basophils % 1.2 Absolute Neutrophils 5.9 Absolute Lymphocytes 2.1 Absolute Monocytes 0.8 Absolute Eosinophils 0.2 Absolute Basophils 0.1 Sodium 131.3 L Potassium 4.5 Chloride 91 L Carbon Dioxide 28 Anion Gap 12 BUN 48 H Creatinine 1.69 H Est GFR ( Amer) 50 L Est GFR (Non-Af Amer) 41 L Glucose 239 H Calcium 8.2 L Total Bilirubin 0.7 AST 16 L ALT 15 L Alkaline Phosphatase 75 Total Protein 6.4 Albumin 3.0 L 01/14/18 12:03 Troponin I < 0.012 Impressions: Foot X-Ray 01/10/18 13:22 IMPRESSION: 1. Soft tissue injury along the plantar aspect of the distal calcaneus likely consistent with the patient's known ulcer. The findings as detailed above suggest osteomyelitis involving the plantar aspect of the distal calcaneus. 2. Persistent soft tissue swelling foot and ankle with decrease since the prior study. Assessment & Plan - Diagnosis (1) Osteomyelitis of right foot Qualifiers: Osteomyelitis type: unspecified type Qualified Code(s): M86.9 - Osteomyelitis, unspecified Is this a current diagnosis for this admission?: Yes Plan: Status post BKA with revision. Antibiotics continued for a few days to treat any residual cellulitis. (2) Insulin dependent diabetes mellitus Is this a current diagnosis for this admission?: Yes Plan: Currently with hyperglycemia. Having to give him supplemental doses of insulin to try to get his blood sugar under better control. - Time Time Spent with patient: 25-34 minutes
[2018-01-15] MEDS ORDERED: INSULIN LISPRO 100 UNIT/ML 3 ML VIAL SUBCUT ONE ×2 (18:30→19:15)
[2018-01-15] MEDS: FUROSEMIDE 20 MG TABLET PO SCH (18:34)
--- NOTE | 2018-01-15 20:51 | Progress Note ---
Provider Note Provider Note: CARDIOLOGY PROGRESS NOTE by Dr. Philly Monroy on 01/15/2018. SUBJECTIVE: The patient underwent a right below-knee amputation today. He denies any chest pain or discomfort. There is no PND orthopnea. There is no leg edema. He denies any palpitations or dizziness or syncope or near syncope. There is no TIA CVA symptoms. There is no pedal edema. There is no arrhythmias on the monitor. PHYSICAL EXAMINATION the patient is morbidly obese. He is in no acute distress. He is well-groomed. 01/15/18 13:27 Temperature 97.3 F Temperature Oral Source Pulse Rate 64 Respiratory 14 Rate Blood Pressure 154/63 H [1] Blood Pressure 93 Mean [1] Blood Pressure Supine Position [1] O2 Sat by Pulse 100 Oximetry Oxygen Delivery Nasal Cannula Method ( includes room air) Oxygen Flow 2 Rate HEAD: Is atraumatic normocephalic. EYES: Pupils are equal round regular reactive to light accommodation. Extraocular movements are normal. There is no conjunctival pallor. There is no scleral icterus. EARS: Tympanic membranes are intact. External auditory canals are clear. NOSE: There is no deviated nasal septum. There is no inflammation of the nasal mucous membrane. There is no nasal polyps. MOUTH: Mucous membrane of the mouth are moist tongue is moist. There is no ulcers. There is no bleeding from the gums. THROAT: There is no redness of the oropharynx. There is no exudates. SKIN: There is no petechia or ecchymosis. There is no skin lesions or skin rashes. NECK: Is supple. There is no JVD. Carotids are equal there is no bruit. There is no lymphadenopathy. There is no goiter. There is no accessory muscle respiration use. Trachea central. LUNGS: Is clear to auscultation percussion, without any rhonchi rales or wheezing. There is no chest wall tenderness. HEART S1-S2 is heard there is no S3 gallop there is no S4 gallop. There is a systolic murmur in the left sternal border and the apex. Clinical exam shows no murmur of aortic stenosis or aortic regurgitation or mitral stenosis or mitral regurgitation. There is no rub. ABDOMEN: Is obese. Nontender. There is no hepatosplenomegaly. All sounds well heard. EXTREMITIES: Femorals are deep. Femorals are diminished. There is no femoral bruits. There is right below knee amputation, but the stump covered with dressing which is dry and clean. Left leg pulses slightly diminished. Left leg shows no DVT or cellulitis. There is chronic trace edema in the left lower extremity. There is no sinus or clubbing. There is no left calf tenderness.. There is no cyanosis or clubbing. There is no calf tenderness. Capillary refill is normal bilaterally. LANDSCAPER HELPER: The patient is conscious awake alert oriented x3 with no focal deficit. PSYCHIATRIC: The patient judgment and insight are intact. Affect is normal. 01/15/18 01/15/18 04:27 04:27 WBC 9.0 Hgb 9.7 L Hct 28.7 L Plt Count 290 Sodium 131.3 L Potassium 4.5 Chloride 91 L Carbon Dioxide 28 BUN 48 H Creatinine 1.69 H Est GFR (Non-Af Amer) 41 L Glucose 239 H Calcium 8.2 L Total Bilirubin 0.7 Direct Bilirubin 0.2 Neonat Total Bilirubin Not Reportable Neonat Direct Bilirubin Not Reportable Neonat Indirect Bili Not Reportable AST 16 L ALT 15 L Alkaline Phosphatase 75 Total Protein 6.4 Albumin 3.0 L IMPRESSION/RECOMMENDATION: 1. Status post staged amputation of right lower extremity. Patient today had below-knee amputation of his right lower extremity. 2. Coronary artery disease. History of coronary bypass graft surgery. Records awaited. No [place] this admission. EKG is within normal limits. Continue his beta-lydia and aspirin. We will recheck his EKG and and troponin I in the a.m. 3. HYPERTENSION: Blood pressure well controlled. 4. DIABETES MELLITUS: Continue antidiabetic medications. Check blood sugars periodically as is being done. 6. History of sleep apnea: Continue CPAP. 7. CHRONIC KIDNEY DISEASE: Stage III: Appears to be stable. 8. Morbid Obesity. His medications reviewed. Plan of care discussed with the surgical list and the attending physician on the case. Medical decision making is of moderate to high complexity. 40 minutes spent on this patient more than 50% of time spent in direct patient care. We will follow with you. Thanking you end of dictation
[2018-01-15] MEDS ORDERED: INSULIN GLARGINE,HUM.REC.ANLOG 1,000 UNIT/10 ML UNIT SUBCUT SCH (22:00)
[2018-01-15] MEDS ORDERED: ATORVASTATIN CALCIUM 40 MG TABLET PO SCH (22:00)
[2018-01-15] MEDS: ATORVASTATIN CALCIUM 40 MG TABLET PO SCH (22:06)
[2018-01-16] MEDS: PENICILLIN G POTASSIUM 5,000,000 UNIT in DEXTROSE 5%-WATER 100 ML IV SCH ×5 (00:52→23:11)
[2018-01-16 05:31] LABS: ABSOLUTE EOSINOPHILS # (AUTO) 0.1 10^3/uL (0.0-0.6); ABSOLUTE LYMPHOCYTES (AUTO) 1.7 10^3/uL (0.5-4.7); ABSOLUTE MONOCYTES (AUTO) 0.9 10^3/uL (0.1-1.4); ABSOLUTE NEUT (AUTO) 8.6 10^3/uL (1.7-8.2); BASOPHILS % (AUTO) 0.3 % (0-2); EOSINOPHILS % (AUTO) 1.2 % (0-6); HEMATOCRIT 27.5 % (37.9-51.0); HEMOGLOBIN 9.2 g/dL (13.5-17.0); LYMPHOCYTES % (AUTO) 14.9 % (13-45); MEAN CORPUSCULAR HEMOGLOBIN 27.1 pg (27.0-33.4); MEAN CORPUSCULAR HGB CONC 33.5 g/dL (32.0-36.0); MEAN CORPUSCULAR VOLUME 81 fl (80-97); MONOCYTES % (AUTO) 8.1 % (3-13); PLATELET COUNT 292 10^3/uL (150-450); RED CELL DISTRIBUTION WIDTH 17.8 % (11.5-14.0); SEGMENTED NEUTROPHILS % (AUTO) 75.5 % (42-78); TOTAL CELLS COUNTED % (AUTO) 100 %; WHITE BLOOD COUNT 11.4 10^3/uL (4.0-10.5)
[2018-01-16 05:54] LABS: ALANINE AMINOTRANSFERASE 11 U/L (21-72); ALKALINE PHOSPHATASE 73 U/L (38-126); ANION GAP 12 (5-19); ASPARTATE AMINO TRANSFERASE 19 U/L (17-59); BILIRUBIN,DIRECT 0.2 mg/dL (0.0-0.4); BILIRUBIN,TOTAL 0.7 mg/dL (0.2-1.3); BLOOD UREA NITROGEN 40 mg/dL (7-20); CALCIUM 8.1 mg/dL (8.4-10.2); CARBON DIOXIDE 29 mmol/L (22-30); CHLORIDE 91 mmol/L (98-107); GLUCOSE 212 mg/dL (75-110); POTASSIUM 4.4 mmol/L (3.6-5.0); SODIUM 131.5 mmol/L (137-145); TOTAL PROTEIN 6.3 g/dL (6.3-8.2)
[2018-01-16] MEDS: MORPHINE SULFATE 10 MG/ML INJ IV PRN ×3 (06:42→11:47)
[2018-01-16] MEDS: LANSOPRAZOLE 30 MG TAB.RAP.DR PO SCH (06:43)
[2018-01-16] MEDS: INSULIN LISPRO 100 UNIT/ML 3 ML VIAL SUBCUT SCH ×3 (08:13→15:58)
[2018-01-16] MEDS: INSULIN LISPRO 100 UNIT/ML 3 ML VIAL SUBCUT PRN ×3 (08:13→15:58)
[2018-01-16] MEDS: METFORMIN HCL 500 MG TABLET PO SCH ×2 (08:13→15:58)
--- NOTE | 2018-01-16 08:47 | EKG REPORT ---
SEVERITY:- BORDERLINE ECG - SINUS RHYTHM BORDERLINE T ABNORMALITIES, INFERIOR LEADS : Confirmed by: Kwabena Uribe MD 16-Jan-2018 08:46:47
[2018-01-16] MEDS: ASPIRIN 81 MG TABLET, CHEWABLE PO SCH (09:15)
[2018-01-16] MEDS: FERROUS SULFATE 325 MG TABLET PO SCH ×2 (09:15→17:28)
[2018-01-16] MEDS: CITALOPRAM HYDROBROMIDE 20 MG TABLET PO SCH (09:16)
[2018-01-16] MEDS: DOCUSATE SODIUM 100 MG CAPSULE PO SCH (09:16)
[2018-01-16] MEDS: HEPARIN SOD (PORCINE) 5,000 UNIT/ML 1 ML SYRINGE SUBCUT SCH ×2 (09:16→21:09)
[2018-01-16] MEDS: CIPROFLOXACIN 400 MG/D5W RTU 400 MG/200 ML RTUPB IV SCH ×2 (09:16→21:09)
[2018-01-16] MEDS: LOSARTAN POTASSIUM 50 MG TABLET PO SCH (09:16)
[2018-01-16] MEDS: FUROSEMIDE 20 MG TABLET PO SCH ×2 (09:17→17:28)
[2018-01-16] MEDS: POTASSIUM CHLORIDE 10 MEQ CAPSULE.ER PO SCH (09:17)
[2018-01-16] MEDS: INSULIN GLARGINE,HUM.REC.ANLOG 1,000 UNIT/10 ML UNIT SUBCUT SCH ×2 (09:17→21:10)
[2018-01-16] MEDS: METOCLOPRAMIDE HCL 10 MG TABLET PO SCH ×3 (09:17→17:28)
[2018-01-16] MEDS: ATENOLOL 50 MG TABLET PO SCH (09:18)
[2018-01-16] MEDS ORDERED: CRANBERRY PO SCH (10:00)
[2018-01-16] MEDS ORDERED: ASCORBIC ACID PO SCH (10:00)
[2018-01-16] MEDS ORDERED: (PENDING PHARMACY ID) (Potassium Chloride [K-Tab Er] 20 MEQ) PO SCH (10:00)
[2018-01-16] MEDS ORDERED: CITALOPRAM HYDROBROMIDE 20 MG TABLET PO SCH (10:00)
[2018-01-16] MEDS ORDERED: LOSARTAN POTASSIUM 50 MG TABLET PO SCH (10:00)
[2018-01-16] MEDS ORDERED: ATENOLOL 50 MG TABLET PO SCH (10:00)
[2018-01-16] MEDS ORDERED: ATENOLOL 100 MG PO SCH (10:00)
[2018-01-16] MEDS ORDERED: (PENDING PHARMACY ID) (Losartan Potassium [Cozaar] 100 MG) PO SCH (10:00)
[2018-01-16] MEDS ORDERED: [UNRECOGNIZED DRUG - OTHER] PO SCH (10:00)
[2018-01-16] MEDS ORDERED: METOLAZONE 5 MG TABLET PO SCH (10:00)
--- NOTE | 2018-01-16 12:21 | PDOC PROGRESS REPORT ---
Subjective Progress Note for:: 01/16/18 Subjective:: no c/o Reason For Visit: OSTEOMYELITIS RIGHT FOOT/RIGHT DIABETIC FOOT ULCER Physical Exam Vital Signs: Temp Pulse Resp BP Pulse Ox 97.9 F 60 17 152/58 H 100 01/16/18 08:00 01/16/18 08:00 01/16/18 08:00 01/16/18 08:00 01/16/18 08:00 Pulse Oximeter Continuous Start: 01/15/18 12: 42 Freq: RTQ4 Status: Active Document 01/16/18 04:00 [facility] (Rec: 01/16/18 04:37 [facility] [id number]) Pulse Oximetry Assessment Oxygen Saturation (92-100) 97 Oxygen Delivery Method CPAP Fraction of Inspired Oxygen (FIO2) 21 Equipment Usage Equipment in Use Continuous SpO2 Machine # 2 Intake & Output 01/15/18 01/16/18 01/17/18 06:59 06:59 06:59 Intake Total 1020 4222 239 Output Total 1690 3515 10 Balance -670 707 229 Weight 143.2 kg 142.5 kg General appearance: PRESENT: no acute distress Extremities exam: PRESENT: other - RLE= BKA site covered with dressing c/d/i; RONALDO drain with bloody drainage Results Laboratory Results: 01/16/18 05:10 01/16/18 05:10 01/16/18 01/16/18 05:10 05:10 WBC 11.4 H RBC 3.40 L Hgb 9.2 L Hct 27.5 L MCV 81 MCH 27.1 MCHC 33.5 RDW 17.8 H Plt Count 292 Seg Neutrophils % 75.5 Lymphocytes % 14.9 Monocytes % 8.1 Eosinophils % 1.2 Basophils % 0.3 Absolute Neutrophils 8.6 H Absolute Lymphocytes 1.7 Absolute Monocytes 0.9 Absolute Eosinophils 0.1 Absolute Basophils 0.0 Sodium 131.5 L Potassium 4.4 Chloride 91 L Carbon Dioxide 29 Anion Gap 12 BUN 40 H Creatinine 1.55 H Est GFR ( Amer) 55 L Est GFR (Non-Af Amer) 46 L Glucose 212 H Calcium 8.1 L Total Bilirubin 0.7 AST 19 ALT 11 L Alkaline Phosphatase 73 Total Protein 6.3 Albumin 3.0 L 01/14/18 01/16/18 12:03 05:10 Troponin I < 0.012 < 0.012 Impressions: Foot X-Ray 01/10/18 13:22 IMPRESSION: 1. Soft tissue injury along the plantar aspect of the distal calcaneus likely consistent with the patient's known ulcer. The findings as detailed above suggest osteomyelitis involving the plantar aspect of the distal calcaneus. 2. Persistent soft tissue swelling foot and ankle with decrease since the prior study. Assessment & Plan - Diagnosis (1) Diabetic foot ulcer Qualifiers: Diabetic foot ulcer location: heel Diabetes mellitus type: type 2 Laterality: right Is this a current diagnosis for this admission?: Yes (2) Osteomyelitis of right foot Qualifiers: Osteomyelitis type: unspecified type Qualified Code(s): M86.9 - Osteomyelitis, unspecified Is this a current diagnosis for this admission?: Yes - Plan Summary Plan Summary: A/ POD#1 after completion R BKA POD#4 after RLE guillottine amputation VSS, AF WBC 11.4 BMP= no change, CRF RONALDO output scant 15 mL\ Patient still requires IV morphine for pain control P/ Continue bedrest and RLE elevation HL IVF Diabetic diet Stump to be unveiled tomorrow Discharge in the next 2-3 days
--- NOTE | 2018-01-16 13:56 | PDOC PROGRESS REPORT ---
Subjective Progress Note for:: 01/16/18 Subjective:: No adverse events overnight. His only complaint today is that he felt like his pain medication was not quite adequate. He was getting IV morphine but it was a fairly small dose and so I decided to put him on some oral hydrocodone in the hopes that it might last him a little bit longer. His blood sugars were high yesterday afternoon we had to give him several supplemental doses of insulin, but his blood sugars today are much better. We talked at length about the importance of diet and control of his blood sugar in the healing of his surgical wound. Reason For Visit: OSTEOMYELITIS RIGHT FOOT/RIGHT DIABETIC FOOT ULCER Physical Exam Vital Signs: Temp Pulse Resp BP Pulse Ox 97.9 F 60 17 152/58 H 99 01/16/18 08:00 01/16/18 08:00 01/16/18 08:00 01/16/18 08:00 01/16/18 12:10 Pulse Oximeter Continuous Start: 01/15/18 12: 42 Freq: RTQ4 Status: Active Document 01/16/18 12:10 [facility] (Rec: 01/16/18 12:52 [facility] [id number]) Pulse Oximetry Assessment Oxygen Saturation (92-100) 99 Oxygen Flow Rate (L/min) 2 Oxygen Delivery Method Nasal Cannula Fraction of Inspired Oxygen (FIO2) 28 Equipment Usage Equipment in Use Continuous SpO2 Machine # 2 Intake & Output 01/15/18 01/16/18 01/17/18 06:59 06:59 06:59 Intake Total 1020 4222 339 Output Total 1690 3515 10 Balance -670 707 329 Weight 143.2 kg 142.5 kg General appearance: PRESENT: no acute distress, disheveled, morbidly obese Respiratory exam: PRESENT: clear to auscultation eliseo, unlabored. ABSENT: accessory muscle use, rales, rhonchi, tachypnea, wheezes Cardiovascular exam: PRESENT: irregular rhythm GI/Abdominal exam: PRESENT: normal bowel sounds, soft. ABSENT: distended, guarding, rebound, tenderness Extremities exam: PRESENT: other - His right BKA stump was covered in a heavy bandage Neurological exam: PRESENT: awake, alert, oriented to person, oriented to place , oriented to situation Results Laboratory Results: 01/16/18 05:10 01/16/18 05:10 01/16/18 01/16/18 05:10 05:10 WBC 11.4 H RBC 3.40 L Hgb 9.2 L Hct 27.5 L MCV 81 MCH 27.1 MCHC 33.5 RDW 17.8 H Plt Count 292 Seg Neutrophils % 75.5 Lymphocytes % 14.9 Monocytes % 8.1 Eosinophils % 1.2 Basophils % 0.3 Absolute Neutrophils 8.6 H Absolute Lymphocytes 1.7 Absolute Monocytes 0.9 Absolute Eosinophils 0.1 Absolute Basophils 0.0 Sodium 131.5 L Potassium 4.4 Chloride 91 L Carbon Dioxide 29 Anion Gap 12 BUN 40 H Creatinine 1.55 H Est GFR ( Amer) 55 L Est GFR (Non-Af Amer) 46 L Glucose 212 H Calcium 8.1 L Total Bilirubin 0.7 AST 19 ALT 11 L Alkaline Phosphatase 73 Total Protein 6.3 Albumin 3.0 L 01/14/18 01/16/18 12:03 05:10 Troponin I < 0.012 < 0.012 Impressions: Foot X-Ray 01/10/18 13:22 IMPRESSION: 1. Soft tissue injury along the plantar aspect of the distal calcaneus likely consistent with the patient's known ulcer. The findings as detailed above suggest osteomyelitis involving the plantar aspect of the distal calcaneus. 2. Persistent soft tissue swelling foot and ankle with decrease since the prior study. Assessment & Plan - Diagnosis (1) Osteomyelitis of right foot Qualifiers: Osteomyelitis type: unspecified type Qualified Code(s): M86.9 - Osteomyelitis, unspecified Is this a current diagnosis for this admission?: Yes Plan: Status post BKA with revision. Wound management per surgical recommendations. He may need another week or so of oral antibiotics for any residual cellulitis pending sensitivities. (2) Insulin dependent diabetes mellitus Is this a current diagnosis for this admission?: Yes Plan: Still hyperglycemic, but with improved glycemic control. - Time Time Spent with patient: 25-34 minutes
[2018-01-16] MEDS: HYDROCODONE/ACETAMINOPHEN 5-325 MG TABLET PO PRN ×2 (15:59→20:16)
--- NOTE | 2018-01-16 20:10 | Progress Note ---
Provider Note Provider Note: CARDIOLOGY PROGRESS NOTES by Dr. Philly Carlson on 01/16/2018. SUBJECTIVE: The patient denies any chest pain or discomfort. There is no PND orthopnea. There is no arrhythmias seen on the monitor. Patient denies any palpitations or dizziness, or syncope or near syncope. There is no TIA CVA symptoms. There is no pedal edema. PHYSICAL EXAMINATION: The patient is morbidly obese. He is well-groomed. He is in no acute distress. 01/16/18 12:00 Temperature 97.8 F Temperature Oral Source Pulse Rate 63 Respiratory 14 Rate Blood Pressure 141/54 H [1] Blood Pressure 83 Mean [1] Blood Pressure Supine Position [1] O2 Sat by Pulse 100 Oximetry Oxygen Delivery Nasal Cannula Method ( includes room air) Oxygen Flow 2 Rate HEAD: Is atraumatic normocephalic. EYES: Pupils are equal round regular reactive to light accommodation. Extraocular movements are normal. There is no conjunctival pallor. There is no scleral icterus. EARS: Tympanic membranes are intact. External auditory canals are clear. NOSE: There is no deviated nasal septum. There is no inflammation of the nasal mucous membrane. There is no nasal polyps. MOUTH: Mucous membrane of the mouth are moist tongue is moist. There is no ulcers. There is no bleeding from the gums. THROAT: There is no redness of the oropharynx. There is no exudates. SKIN: There is no petechia or ecchymosis. There is no skin lesions or skin rashes. NECK: Is supple. There is no JVD. Carotids are equal there is no bruit. There is no lymphadenopathy. There is no goiter. There is no accessory muscle respiration use. Trachea central. LUNGS: Is clear to auscultation percussion, without any rhonchi rales or wheezing. There is no chest wall tenderness. HEART S1-S2 is heard there is no S3 gallop there is no S4 gallop. There is a systolic murmur in the left sternal border and the apex. Clinical exam shows no murmur of aortic stenosis or aortic regurgitation or mitral stenosis or mitral regurgitation. There is no rub. ABDOMEN: Is obese. Nontender. There is no hepatosplenomegaly. All sounds well heard. EXTREMITIES: Femorals are deep. Femorals are diminished. There is no femoral bruits. There is right below knee amputation, but the stump covered with dressing which is dry and clean. Left leg pulses slightly diminished. Left leg shows no DVT or cellulitis. There is chronic trace edema in the left lower extremity. There is no sinus or clubbing. There is no left calf tenderness.. There is no cyanosis or clubbing. There is no calf tenderness. Capillary refill is normal bilaterally. CHILD CARE CENTER ADMINISTRATOR: The patient is conscious awake alert oriented x3 with no focal deficit. PSYCHIATRIC: The patient judgment and insight are intact. Affect is normal. 01/16/18 01/16/18 01/16/18 05:10 05:10 05:10 WBC 11.4 H Hgb 9.2 L Hct 27.5 L Plt Count 292 Sodium 131.5 L Potassium 4.4 Chloride 91 L Carbon Dioxide 29 BUN 40 H Creatinine 1.55 H Est GFR (Non-Af Amer) 46 L Glucose 212 H Calcium 8.1 L Total Bilirubin 0.7 Direct Bilirubin 0.2 Neonat Total Bilirubin Not Reportable Neonat Direct Bilirubin Not Reportable Neonat Indirect Bili Not Reportable AST 19 ALT 11 L Alkaline Phosphatase 73 Troponin I < 0.012 Total Protein 6.3 Albumin 3.0 L EKG: Shows sinus rhythm. There is nonspecific diffuse T flattening. IMPRESSION/RECOMMENDATION: 1. Status post staged amputation of right lower extremity. Patient today had below-knee amputation of his right lower extremity. 2. Coronary artery disease. History of coronary bypass graft surgery. Records awaited. No SD this admission. EKG is without any major ischemic changes. His troponin I is negative. Continue his beta-lydia and aspirin. 3. HYPERTENSION: Blood pressure well controlled. 4. DIABETES MELLITUS: Continue antidiabetic medications. Check blood sugars periodically as is being done. 6. History of sleep apnea: Continue CPAP. 7. CHRONIC KIDNEY DISEASE: Stage III. Note that the GFR is improved to 46 mL. Some of the element of the renal dysfunction could be due to the patient's infection. Morbid Obesity. Note medications have been reviewed. Management plan discussed with attending physician on the case. And also the surgicalist on the case. Still awaiting records from [facility] regarding his open heart surgery. Medical decision making now is of moderate complexity. Multiple 40 minutes spent on this patient with more than 50% of time spent in direct patient care note patient's cardiac status is stable. Will sign off. Note will follow the patient as an outpatient, and we will see him after the patient is being discharged.
[2018-01-16] MEDS: ATORVASTATIN CALCIUM 40 MG TABLET PO SCH (21:08)
[2018-01-17] MEDS: HYDROCODONE/ACETAMINOPHEN 5-325 MG TABLET PO PRN ×5 (00:24→21:46)
[2018-01-17] MEDS: PENICILLIN G POTASSIUM 5,000,000 UNIT in DEXTROSE 5%-WATER 100 ML IV SCH ×4 (05:13→23:19)
[2018-01-17] MEDS: LANSOPRAZOLE 30 MG TAB.RAP.DR PO SCH (05:13)
[2018-01-17 07:14] LABS: ABSOLUTE BASOPHILS # (AUTO) 0.1 10^3/uL (0.0-0.2); ABSOLUTE EOSINOPHILS # (AUTO) 0.2 10^3/uL (0.0-0.6); ABSOLUTE MONOCYTES (AUTO) 0.8 10^3/uL (0.1-1.4); ABSOLUTE NEUT (AUTO) 7.9 10^3/uL (1.7-8.2); BASOPHILS % (AUTO) 0.6 % (0-2); EOSINOPHILS % (AUTO) 2.2 % (0-6); HEMATOCRIT 26.8 % (37.9-51.0); HEMOGLOBIN 9.1 g/dL (13.5-17.0); LYMPHOCYTES % (AUTO) 18.2 % (13-45); MEAN CORPUSCULAR HEMOGLOBIN 27.2 pg (27.0-33.4); MEAN CORPUSCULAR VOLUME 80 fl (80-97); MONOCYTES % (AUTO) 7.6 % (3-13); PLATELET COUNT 293 10^3/uL (150-450); RED BLOOD COUNT 3.35 10^6/uL (4.35-5.55); RED CELL DISTRIBUTION WIDTH 18.2 % (11.5-14.0); SEGMENTED NEUTROPHILS % (AUTO) 71.4 % (42-78); TOTAL CELLS COUNTED % (AUTO) 100 %; WHITE BLOOD COUNT 11.1 10^3/uL (4.0-10.5)
[2018-01-17 07:35] LABS: ALANINE AMINOTRANSFERASE 16 U/L (21-72); ALKALINE PHOSPHATASE 81 U/L (38-126); ANION GAP 13 (5-19); ASPARTATE AMINO TRANSFERASE 17 U/L (17-59); BILIRUBIN,DIRECT 0.2 mg/dL (0.0-0.4); BILIRUBIN,TOTAL 0.8 mg/dL (0.2-1.3); BLOOD UREA NITROGEN 41 mg/dL (7-20); CALCIUM 8.1 mg/dL (8.4-10.2); CARBON DIOXIDE 27 mmol/L (22-30); CHLORIDE 91 mmol/L (98-107); GLUCOSE 133 mg/dL (75-110); POTASSIUM 4.3 mmol/L (3.6-5.0); SODIUM 130.8 mmol/L (137-145); TOTAL PROTEIN 6.2 g/dL (6.3-8.2)
[2018-01-17] MEDS: INSULIN LISPRO 100 UNIT/ML 3 ML VIAL SUBCUT SCH ×3 (08:11→18:40)
[2018-01-17] MEDS: FERROUS SULFATE 325 MG TABLET PO SCH ×2 (08:22→18:40)
[2018-01-17] MEDS: METFORMIN HCL 500 MG TABLET PO SCH (08:22)
[2018-01-17] MEDS: ATENOLOL 50 MG TABLET PO SCH (10:38)
[2018-01-17] MEDS: POTASSIUM CHLORIDE 10 MEQ CAPSULE.ER PO SCH (10:39)
[2018-01-17] MEDS: DOCUSATE SODIUM 100 MG CAPSULE PO SCH (10:39)
[2018-01-17] MEDS: FUROSEMIDE 20 MG TABLET PO SCH (10:39)
[2018-01-17] MEDS: ASPIRIN 81 MG TABLET, CHEWABLE PO SCH (10:39)
[2018-01-17] MEDS: LOSARTAN POTASSIUM 50 MG TABLET PO SCH (10:39)
[2018-01-17] MEDS: HEPARIN SOD (PORCINE) 5,000 UNIT/ML 1 ML SYRINGE SUBCUT SCH ×2 (10:40→21:08)
[2018-01-17] MEDS: CIPROFLOXACIN 400 MG/D5W RTU 400 MG/200 ML RTUPB IV SCH (10:40)
[2018-01-17] MEDS: CITALOPRAM HYDROBROMIDE 20 MG TABLET PO SCH (10:40)
[2018-01-17] MEDS: INSULIN GLARGINE,HUM.REC.ANLOG 1,000 UNIT/10 ML UNIT SUBCUT SCH ×2 (10:41→21:09)
[2018-01-17] MEDS: METOCLOPRAMIDE HCL 10 MG TABLET PO SCH ×3 (10:42→18:40)
[2018-01-17] MEDS: INSULIN LISPRO 100 UNIT/ML 3 ML VIAL SUBCUT PRN ×2 (12:28→18:41)
--- NOTE | 2018-01-17 13:33 | OPERATIVE REPORT E ---
Operative Report NAME: FAVIO JEFFRIES : 1955 AGE: 62Y DATE OF SURGERY: 01/15/2018 ROOM: 413 PREOPERATIVE DIAGNOSES: 1. OSTEOMYELITIS RIGHT FOOT. 2. STATUS POST GUILLOTINE AMPUTATION RIGHT DISTAL LEG. POSTOPERATIVE DIAGNOSES: 1. OSTEOMYELITIS RIGHT FOOT. 2. STATUS POST GUILLOTINE AMPUTATION RIGHT DISTAL LEG. PROCEDURE: Completion right BKA amputation. SURGEON: JESSE CROCKER M.D. ROLL EXAMINER: None. BLEEDING: Less than 5 mL. COMPLICATION: None. ANESTHESIA: General. FLUIDS: 1200 mL. URINE OUTPUT: 200 mL. DRAINS: One 12-Anguillan round Manav-Boucher drain. INDICATION AND FINDINGS: This is a 62-year-old male with diabetes, osteomyelitis of the right foot who 2 days ago underwent a right lower leg guillotine amputation. The patient is taken to surgery today to undergo a completion right below the knee amputation. Procedure, benefits, and complications explained to the patient and family. They understand and desire to proceed. DESCRIPTION OF PROCEDURE: The procedure was done in the operating room. The patient was placed in the supine position. General anesthesia induced by endotracheal intubation. A Dudley catheter was placed. The right lower extremity was prepped from above the knee to the guillotine amputation site. In addition, prior to surgery a tourniquet was applied to the distal half of the right thigh. The right lower extremity was then exsanguinated with an Esmarch band and the tourniquet was then inflated to 280 mmHg. The Esmarch band was then removed. The posterior flap of the planned BKA was drawn on the skin with a surgical marker. Following this, the markings were continued with a skin incision by knife and Bovie. The tibia was then exposed just below the anterior tuberosity and circumferentially dissected with Bovie allowing a finger to be placed posterior to it. This was then divided about 2 fingerbreadths below the tuberosity with an electric saw. The edges where then slightly filed with a surgical file. Following this the fibula was identified dissected circumferentially with Bovie, and divided with a surgical saw. The musculocutaneous posterior flap was then dissected off the tibia with Bovie and the flap was amputated distally. The specimen was removed from the surgical field. The flap was inspected and found to be viable. The edges of the tibia and fibula was then filed with a surgical file. The stump of the peroneal and popliteal arteries and veins were then identified, clamped with a hemostat and double suture ligated with a 2-0 Silk suture. The flap was then turned over the bone stumps. A 15-Anguillan round Manav-Boucher drain was inserted through a separate stab wound through the skin, placed deeply in the surgical field, cut to length, and secured to the skin with a 2-0 Nylon suture. The flap was then secured to the BKA stump using a deep inverted interrupted 0 Vicryl suture, which approximated nicely the flap against the BKA stump. The closure was done in layers with a deep layer involving the muscle fascia, this most superior layers of subcutaneous tisue were then approximated with deep interrupted inverted 2-0 Vicryl suture. The skin was trimmed to length to obtain a good approximation of the edges and approximated with xavier. The area was then washed from Betadine, dried, covered with soft 4 x 4s, ABD, Kerlix roll, and Chente bandage. A 2 foot long, 5 inch wide pre-made splint was then placed posterior to the BKA stump in the inferior side, folded over the stump itself, kept in position with an Chente wrap and the stump was straightened as the splint was curing. The tourniquet was taken down. The total of putting it on was an hour and 13 minutes. The patient was then extubated, transferred to the recovery room in satisfactory condition. DICTATING PHYSICIAN: JESSE CROCKER M.D. [id number] PHY#: [id number] ID: [id number] JOB#: [id number] ACCT: [id number] cc:JESSE CROCKER M.D. > MTDD
--- NOTE | 2018-01-17 14:38 | PDOC PROGRESS REPORT ---
Subjective Subjective:: Patient has no complaints, Dudley catheter still in, tolerating a diet. Had a bowel movement. Pain is reasonably well controlled. Reason For Visit: OSTEOMYELITIS RIGHT FOOT/RIGHT DIABETIC FOOT ULCER Physical Exam Vital Signs: Temp Pulse Resp BP Pulse Ox 98.7 F 69 12 133/51 H 99 01/17/18 12:43 01/17/18 12:43 01/17/18 12:43 01/17/18 12:43 01/17/18 12:43 Pulse Oximeter Continuous Start: 01/15/18 12: 42 Freq: RTQ4 Status: Active Document 01/17/18 11:41 [facility] (Rec: 01/17/18 11:41 [facility] [id number]) Pulse Oximetry Assessment Oxygen Saturation (92-100) 98 Oxygen Delivery Method Room Air Fraction of Inspired Oxygen (FIO2) 21 Equipment Usage Equipment Standby Continuous SpO2 Machine # 2 Intake & Output 01/16/18 01/17/18 01/18/18 06:59 06:59 06:59 Intake Total 4222 1985 Output Total 3512009 250 Balance 707 -24 -250 Weight 142.5 kg 141.5 kg General appearance: PRESENT: no acute distress Musculoskeletal exam: PRESENT: other - Dressing removed and splint removed. Expected amount of postoperative edema noted. Drain removed uneventfully. Bruising over the anterior tibialis with minimal blister. Inferior and flap viable; some small areas early vascular challenge Results Laboratory Results: 01/17/18 05:57 01/17/18 05:57 01/17/18 01/17/18 05:57 05:57 WBC 11.1 H RBC 3.35 L Hgb 9.1 L Hct 26.8 L MCV 80 MCH 27.2 MCHC 34.0 RDW 18.2 H Plt Count 293 Seg Neutrophils % 71.4 Lymphocytes % 18.2 Monocytes % 7.6 Eosinophils % 2.2 Basophils % 0.6 Absolute Neutrophils 7.9 Absolute Lymphocytes 2.0 Absolute Monocytes 0.8 Absolute Eosinophils 0.2 Absolute Basophils 0.1 Sodium 130.8 L Potassium 4.3 Chloride 91 L Carbon Dioxide 27 Anion Gap 13 BUN 41 H Creatinine 1.75 H Est GFR ( Amer) 48 L Est GFR (Non-Af Amer) 40 L Glucose 133 H Calcium 8.1 L Total Bilirubin 0.8 AST 17 ALT 16 L Alkaline Phosphatase 81 Total Protein 6.2 L Albumin 3.0 L 10/18/18 Unknown Leg - Below Knee Amputation Site Gram Stain - Final 01/13/18 Unknown Leg - Below Knee Amputation Site Wound Culture - Final NO AEROBIC OR ANAEROBIC ORGANISMS RECOVERED 01/14/18 01/16/18 12:03 05:10 Troponin I < 0.012 < 0.012 Impressions: Foot X-Ray 01/10/18 13:22 IMPRESSION: 1. Soft tissue injury along the plantar aspect of the distal calcaneus likely consistent with the patient's known ulcer. The findings as detailed above suggest osteomyelitis involving the plantar aspect of the distal calcaneus. 2. Persistent soft tissue swelling foot and ankle with decrease since the prior study. Assessment & Plan - Diagnosis (1) Status post below knee amputation of right lower extremity Is this a current diagnosis for this admission?: Yes Plan: Impression: Patient is 2 days status post right [id number] amputation closure, drain removed, no evidence of preoperative sepsis or hematoma today. Recommendations: 1. DC Dudley catheter. 2. Continue IV antibiotics for 24 more hours then discontinue. 3. Physical therapy consultation for evaluation, transfers with assistance.
[2018-01-17] MEDS ORDERED: ACETAMINOPHEN 325 MG TABLET PO PRN (16:22)
--- NOTE | 2018-01-17 16:37 | PDOC PROGRESS REPORT ---
Subjective Progress Note for:: 01/17/18 Subjective:: Today is day 2 post revision of right BKA. He has diarrhea and we will get stool for C.difficile x3. His HB/HCT decreased to 9.1/26.8; we will transfuse him with 1 unit of PRBc. His BUN/Cr had increased to 41/1.75 and it was unclear why he was put back on Lasix 20 mg BID and Metolazone 5mg qd. I will decrease Lasix to 20 mg qd po and D/C Metolazone.His pain control is adequate and his gupta catheter was removed today by the surgicalist.The site planner is working on acute REH[facility] at [facility] through consult with Dr Jeff Salcido.Wound culture result noted; so we will D/C Ciprofloxacin and add Ertapenem. Reason For Visit: OSTEOMYELITIS RIGHT FOOT/RIGHT DIABETIC FOOT ULCER Physical Exam Vital Signs: Temp Pulse Resp BP Pulse Ox 98.7 F 69 12 133/51 H 99 01/17/18 12:43 01/17/18 12:43 01/17/18 12:43 01/17/18 12:43 01/17/18 12:43 Pulse Oximeter Continuous Start: 01/15/18 12: 42 Freq: RTQ4 Status: Active Document 01/17/18 11:41 [facility] (Rec: 01/17/18 11:41 [facility] [id number]) Pulse Oximetry Assessment Oxygen Saturation (92-100) 98 Oxygen Delivery Method Room Air Fraction of Inspired Oxygen (FIO2) 21 Equipment Usage Equipment Standby Continuous SpO2 Machine # 2 Intake & Output 01/16/18 01/17/18 01/18/18 06:59 06:59 06:59 Intake Total 4222 1985 Output Total 3514 2009 250 Balance 707 -24 -250 Weight 142.5 kg 141.5 kg General appearance: PRESENT: no acute distress, cooperative, well-developed, well-nourished Head exam: PRESENT: atraumatic, normocephalic Eye exam: PRESENT: EOMI, PERRLA Ear exam: PRESENT: normal external ear exam Mouth exam: PRESENT: moist, neck supple Neck exam: PRESENT: full ROM Respiratory exam: PRESENT: clear to auscultation eliseo, symmetrical Cardiovascular exam: PRESENT: +S1, +S2 Pulses: PRESENT: +2 pedal pulses bilateral GI/Abdominal exam: PRESENT: normal bowel sounds, soft Rectal exam: PRESENT: deferred Extremities exam: PRESENT: right BKA Neurological exam: PRESENT: alert, awake, oriented to person, oriented to place , oriented to time Psychiatric exam: PRESENT: normal mood Results Laboratory Results: 01/17/18 05:57 01/17/18 05:57 01/17/18 01/17/18 01/17/18 05:57 05:57 13:52 WBC 11.1 H RBC 3.35 L Hgb 9.1 L Hct 26.8 L MCV 80 MCH 27.2 MCHC 34.0 RDW 18.2 H Plt Count 293 Seg Neutrophils % 71.4 Lymphocytes % 18.2 Monocytes % 7.6 Eosinophils % 2.2 Basophils % 0.6 Absolute Neutrophils 7.9 Absolute Lymphocytes 2.0 Absolute Monocytes 0.8 Absolute Eosinophils 0.2 Absolute Basophils 0.1 Sodium 130.8 L Potassium 4.3 Chloride 91 L Carbon Dioxide 27 Anion Gap 13 BUN 41 H Creatinine 1.75 H Est GFR ( Amer) 48 L Est GFR (Non-Af Amer) 40 L Glucose 133 H Calcium 8.1 L Total Bilirubin 0.8 AST 17 ALT 16 L Alkaline Phosphatase 81 Total Protein 6.2 L Albumin 3.0 L Blood Type A POSITIVE Antibody Screen NEGATIVE 01/13/18 Unknown Leg - Below Knee Amputation Site Gram Stain - Final 01/13/18 Unknown Leg - Below Knee Amputation Site Wound Culture - Final NO AEROBIC OR ANAEROBIC ORGANISMS RECOVERED 01/14/18 01/16/18 12:03 05:10 Troponin I < 0.012 < 0.012 Impressions: Foot X-Ray 01/10/18 13:22 IMPRESSION: 1. Soft tissue injury along the plantar aspect of the distal calcaneus likely consistent with the patient's known ulcer. The findings as detailed above suggest osteomyelitis involving the plantar aspect of the distal calcaneus. 2. Persistent soft tissue swelling foot and ankle with decrease since the prior study. Assessment & Plan - Diagnosis (1) Osteomyelitis of right foot Qualifiers: Osteomyelitis type: unspecified type Qualified Code(s): M86.9 - Osteomyelitis, unspecified Is this a current diagnosis for this admission?: Yes Plan: He is s.p right below amputation; ct with Ertapenem 1 G daily IV; Penicillin-G 400 mg q6h IV; Peever 5/325 1 q4h prn po; Tylenol 650 mg q4h prn po. F/u surgicalist. (2) Diabetic foot ulcer Qualifiers: Diabetic foot ulcer location: heel Diabetes mellitus type: type 2 Laterality: right Is this a current diagnosis for this admission?: Yes Plan: He is s.p right BKA. Ct with Ertapenem 1G daily IV; Penicillin-G 400 mg q6h IV ; Peever 5/325 1 q4h prn po; Tylenol 650 mg q4h prn po. F/u surgicalist. (3) Diabetes mellitus type 2 in nonobese Is this a current diagnosis for this admission?: Yes Plan: Ct with Lantus 40 iu BID subcut; Humalog 10 iu QAC;Accucheck QAC, QHS with slidding scale with humalog insulin as per [facility] protocol.1800 calorie ADA diet.Hold Metformin 500 mg BID for now. (4) Hypertension Qualifiers: Hypertension type: essential hypertension Qualified Code(s): I10 - Essential (primary) hypertension Is this a current diagnosis for this admission?: Yes Plan: Ct with Losartan 100 mg qd pO; Atenolol 100 mg qd PO; 2g sodium diet. (5) Hyperlipidemia Qualifiers: Hyperlipidemia type: mixed hyperlipidemia Qualified Code(s): E78.2 - Mixed hyperlipidemia Is this a current diagnosis for this admission?: Yes Plan: Ct with Atorvastatin 40 mg qhs po; 200 mg cholesterol diet. (6) Chronic diastolic CHF (congestive heart failure) Is this a current diagnosis for this admission?: Yes Plan: Ct with Lasix 20 mg daily PO; KCL 20 MEQ qd po; strict input/output chart; Daily weight;Monitor chemistries daily. D/C Metolazone 5 mg qd due to worsening kidney function. (7) CAD (coronary artery disease) of artery bypass graft Is this a current diagnosis for this admission?: Yes Plan: Ct with Aspirin 81 mg qd po; cardiac diet. (8) GERD (gastroesophageal reflux disease) Is this a current diagnosis for this admission?: Yes Plan: Ct with Prevacid 30 mg qd po since we do not have Omeprazole in our formulary; Ct with Reglan 5 mg TID PO. (9) Fe deficiency anemia Qualifiers: Iron deficiency anemia type: unspecified iron deficiency Qualified Code(s) : D50.9 - Iron deficiency anemia, unspecified Is this a current diagnosis for this admission?: Yes Plan: Ct with FeSO4 325 mg BID po; Transfuse 1 unit of PRBC. monitor CBC daily. (10) Depression Qualifiers: Depression Type: unspecified Qualified Code(s): F32.9 - Major depressive disorder, single episode, unspecified Is this a current diagnosis for this admission?: Yes Plan: Ct with Celexa 20 mg qd po. (11) Obstructive sleep apnea Is this a current diagnosis for this admission?: Yes Plan: Ct with CPAP at night. (12) DVT prophylaxis Is this a current diagnosis for this admission?: Yes Plan: Ct with Heparin 5000iu subcut q8h; SCD.
[2018-01-17 21:06] LABS: HEMATOCRIT 29.2 % (37.9-51.0); HEMOGLOBIN 9.9 g/dL (13.5-17.0); MEAN CORPUSCULAR HEMOGLOBIN 27.1 pg (27.0-33.4); MEAN CORPUSCULAR VOLUME 80 fl (80-97); PLATELET COUNT 298 10^3/uL (150-450); RED BLOOD COUNT 3.66 10^6/uL (4.35-5.55); RED CELL DISTRIBUTION WIDTH 18.3 % (11.5-14.0); WHITE BLOOD COUNT 12.6 10^3/uL (4.0-10.5)
[2018-01-17] MEDS: ATORVASTATIN CALCIUM 40 MG TABLET PO SCH (21:08)
[2018-01-17] MEDS ORDERED: METRONIDAZOLE 500 MG TABLET PO ONE (23:00)
[2018-01-18] MEDS: LANSOPRAZOLE 30 MG TAB.RAP.DR PO SCH (05:16)
[2018-01-18] MEDS: PENICILLIN G POTASSIUM 5,000,000 UNIT in DEXTROSE 5%-WATER 100 ML IV SCH ×3 (05:16→17:11)
[2018-01-18 06:07] LABS: ABSOLUTE EOSINOPHILS # (AUTO) 0.1 10^3/uL (0.0-0.6); ABSOLUTE LYMPHOCYTES (AUTO) 1.5 10^3/uL (0.5-4.7); ABSOLUTE MONOCYTES (AUTO) 0.9 10^3/uL (0.1-1.4); ABSOLUTE NEUT (AUTO) 8.9 10^3/uL (1.7-8.2); BASOPHILS % (AUTO) 0.4 % (0-2); EOSINOPHILS % (AUTO) 1.1 % (0-6); HEMATOCRIT 28.6 % (37.9-51.0); HEMOGLOBIN 9.7 g/dL (13.5-17.0); MEAN CORPUSCULAR HEMOGLOBIN 27.1 pg (27.0-33.4); MEAN CORPUSCULAR VOLUME 80 fl (80-97); MONOCYTES % (AUTO) 8.1 % (3-13); PLATELET COUNT 268 10^3/uL (150-450); RED BLOOD COUNT 3.59 10^6/uL (4.35-5.55); RED CELL DISTRIBUTION WIDTH 18.2 % (11.5-14.0); SEGMENTED NEUTROPHILS % (AUTO) 77.4 % (42-78); TOTAL CELLS COUNTED % (AUTO) 100 %; WHITE BLOOD COUNT 11.5 10^3/uL (4.0-10.5)
[2018-01-18 06:26] LABS: ANION GAP 13 (5-19); BLOOD UREA NITROGEN 45 mg/dL (7-20); CALCIUM 7.9 mg/dL (8.4-10.2); CARBON DIOXIDE 25 mmol/L (22-30); CHLORIDE 93 mmol/L (98-107); GLUCOSE 209 mg/dL (75-110); POTASSIUM 4.4 mmol/L (3.6-5.0); SODIUM 130.9 mmol/L (137-145); TOTAL PROTEIN 6.2 g/dL (6.3-8.2)
[2018-01-18 06:27] LABS: ALANINE AMINOTRANSFERASE 20 U/L (21-72); ALKALINE PHOSPHATASE 81 U/L (38-126); ASPARTATE AMINO TRANSFERASE 21 U/L (17-59); BILIRUBIN,DIRECT 0.3 mg/dL (0.0-0.4)
[2018-01-18] MEDS ORDERED: METRONIDAZOLE 500 MG TABLET PO SCH (10:00)
[2018-01-18] MEDS: HEPARIN SOD (PORCINE) 5,000 UNIT/ML 1 ML SYRINGE SUBCUT SCH ×2 (10:09→21:11)
[2018-01-18] MEDS: INSULIN LISPRO 100 UNIT/ML 3 ML VIAL SUBCUT SCH ×3 (10:10→17:11)
[2018-01-18] MEDS: INSULIN GLARGINE,HUM.REC.ANLOG 1,000 UNIT/10 ML UNIT SUBCUT SCH ×2 (10:10→21:11)
[2018-01-18] MEDS: METRONIDAZOLE 500 MG TABLET PO SCH ×2 (10:11→14:55)
[2018-01-18] MEDS: INSULIN LISPRO 100 UNIT/ML 3 ML VIAL SUBCUT PRN ×3 (10:11→17:11)
[2018-01-18] MEDS: FERROUS SULFATE 325 MG TABLET PO SCH ×2 (10:12→17:10)
[2018-01-18] MEDS: ASPIRIN 81 MG TABLET, CHEWABLE PO SCH (10:12)
[2018-01-18] MEDS: CITALOPRAM HYDROBROMIDE 20 MG TABLET PO SCH (10:12)
[2018-01-18] MEDS: POTASSIUM CHLORIDE 10 MEQ CAPSULE.ER PO SCH (10:12)
[2018-01-18] MEDS: FUROSEMIDE 20 MG TABLET PO SCH (10:12)
[2018-01-18] MEDS: ATENOLOL 50 MG TABLET PO SCH (10:12)
[2018-01-18] MEDS: ERTAPENEM SODIUM 1 GM in NORMAL SALINE 50 ML IV SCH (10:13)
[2018-01-18] MEDS: LOSARTAN POTASSIUM 50 MG TABLET PO SCH (10:13)
[2018-01-18] MEDS: DOCUSATE SODIUM 100 MG CAPSULE PO SCH (10:13)
--- NOTE | 2018-01-18 10:44 | PDOC CONSULTATION ---
Consultation Consult Date: 01/18/18 Consult reason:: Evaluation for admission to acute inpatient rehabilitation. History of Present Illness Admission Date/PCP: 01/10/18 15:16 ANA PAULA PULLIAM History of Present Illness: FAVIO NEAL is a 62-year-old male with past medical history of morbid obesity with BMI of 45.7, diabetes mellitus type 2 with diabetic neuropathy, hypertension, hyperlipidemia, CHF, coronary artery disease status post CABG x2 vessels, obstructive sleep apnea on CPAP, chronic kidney disease stage III with baseline creatinine around 1.47, GERD, iron deficiency anemia, osteoarthritis of the knees, depression, and appendectomy admitted to [facility] on 01/10/2018 after presenting with increasing erythema and drainage from a diabetic foot ulcer on the right lower extremity. X-ray of the foot confirmed osteomyelitis involving the plantar aspect of the distal calcaneus. The patient was admitted to the medical service and started on IV antibiotics. Blood cultures grew enterococcus faecalis group D and Morganella morganii, foot wound cultures grew Proteus mirabilis and ESBL E. coli, and antibiotics were adjusted accordingly. The patient was evaluated by general surgery Dr. Gibbs and orthopedic surgery and both recommended a below the knee amputation. After evaluation by cardiology for preoperative clearance, the patient underwent right below the knee guillotine amputation on 01/13/[address] Jori Gibbs of general surgery. Patient was evaluated by infectious disease and recommended completion of a total of 7 days of ciprofloxacin and 7 days of IV penicillin to treat the polymicrobial bacteremia (starting on 2017). On 01/15/2018, the patient was taken back to the OR for completion of the right below the knee amputation by Dr. Reilly Mills of general surgery. Postoperative course included difficult to control pain, acute blood loss anemia on top of iron deficiency anemia requiring blood transfusion, acute kidney injury on chronic kidney disease, and C. difficile colitis requiring further adjustment of antibiotics. Physical medicine and rehabilitation consultation was requested to evaluate the patient for admission to acute inpatient rehabilitation. Physical medicine and rehabilitation consultation was requested to evaluate the patient for admission to acute inpatient rehabilitation. Today, the patient complains of phantom and nociceptive pain in the right lower extremity as well as continued diarrhea. He denies trouble with urination. He also reports that he has generalized upper extremity weakness due to lack of exercise over the years. Past Medical History Cardiac Medical History: Reports: Coronary Artery Disease, Hypertension Endocrine Medical History: Reports: Diabetes Mellitus Type 2 GI Medical History: Reports: Gastroesophageal Reflux Disease Musculoskeltal Medical History: Reports: Arthritis Psychiatric Medical History: Reports: Depression Hematology: Reports: Anemia Past Surgical History Past Surgical History: Reports: Appendectomy, Cholecystectomy, Coronary Artery Bypass Graft Social History Lives with: Family Smoking Status: Never Smoker Frequency of Alcohol Use: None Hx Recreational Drug Use: No Drugs: None Hx Prescription Drug Abuse: No Past Social History Note: Paulo Neal lives with his in a 1 level home with 6 steps to enter and 0 steps to the bedroom and bathroom. He denies smoking, drinking alcohol, and using drugs. Prior Functional Status Active and independent with mobility and all ADLs. Ambulates with a rolling walker or single-point cane. Current Functional Status Per therapy notes, the patient currently requires minimum assistance of 1-2 people for bed mobility, moderate to maximum assistance of 1-2 people for transfers, and moderate assistance of 2 people for standing. He is independent for upper extremity dressing and dependent for lower extremity dressing. - Advance Directive Resuscitation Status: Full Code Family History Family History: Reviewed & Not Pertinent - Noncontributory to the current presentation Parental Family History Reviewed: Yes Children Family History Reviewed: Yes Sibling(s) Family History Reviewed.: Yes - Noncontributory to the current presentation. Medication/Allergy Home Medications: Aspirin [Aspirin 81 mg Chewable Tablet] 81 mg PO DAILY 01/10/18 Atenolol [Tenormin] 100 mg PO DAILY 01/10/18 Atorvastatin Calcium [Lipitor 40 mg Tablet] 40 mg PO QHS 01/10/18 Citalopram Hydrobromide [Celexa 20 mg Tablet] 20 mg PO DAILY 01/10/18 Cranberry Conc/Ascorbic Acid [Cranberry Concentrate Softgel] 1 each PO DAILY Furosemide [Lasix 20 mg Tablet] 20 mg PO BID 01/10/18 Insulin Aspart [Novolog Insulin 100 Unit/1 ml 10 ml] 10 unit SQ AC 01/10/18 Insulin Glargine,Hum.rec.anlog [Lantus] 40 unit SQ Q12 01/10/18 Losartan Potassium [Cozaar] 100 mg PO DAILY 01/10/18 Metformin HCl [Glucophage] 500 mg PO BIDACBS 01/10/18 Metoclopramide HCl [Reglan] 5 mg PO TID 01/10/18 Metolazone [Zaroxolyn 5 Mg Tablet] 5 mg PO DAILY 01/10/18 Omeprazole 20 mg PO DAILY 01/10/18 Potassium Chloride [K-Tab ER] 20 meq PO DAILY 01/10/18 Allergies/Adverse Reactions: lisinopril Allergy (Verified 01/10/18 12:51) Review of Systems Review of Systems: Constitutional: No fevers, chills, sweats, weight loss Eye: No recent visual problems, no blurry vision, no double vision ENMT: No ear pain, nasal congestion, sore throat Respiratory: No cough, sputum production. Positive for shortness of breath with exertion. Cardiovascular: No chest pain, palpitations, syncope Gastrointestinal: No nausea, vomiting, abdominal pain. Positive for diarrhea. Genitourinary: No hematuria, dysuria, flank or suprapubic pain Gopal/Lymph: Negative for bruising tendency, swollen lymph glands Endocrine: Negative for excessive thirst, excessive hunger. Musculoskeletal: No back pain, neck pain. Positive for chronic pain of bilateral lower knee secondary to osteoarthritis as well as new onset of nociceptive and neuropathic pain following BKA. Integumentary: No rash, pruritus, abrasions. Neurologic: No headaches, speech problems. Positive for insensate left lower leg. Psychiatric: Positive for history of depression. Physical Exam Vital Signs: Temp Pulse Resp BP Pulse Ox 98.4 F 72 20 134/71 H 96 01/18/18 08:00 01/18/18 08:00 01/18/18 08:00 01/18/18 08:00 01/18/18 08:46 Pulse Oximeter Continuous Start: 01/15/18 12: 42 Freq: RTQ4 Status: Active Document 01/18/18 08:46 [facility] (Rec: 01/18/18 08:47 [facility] [id number]) Pulse Oximetry Assessment Oxygen Saturation (92-100) 96 Oxygen Delivery Method Room Air Fraction of Inspired Oxygen (FIO2) 21 Equipment Usage Equipment Standby Continuous SpO2 Machine # 2 Additional RT Notes Other Patient used cpap equipment last night with no issues. Intake & Output 01/17/18 01/18/18 01/19/18 06:59 06:59 06:59 Intake Total 1985 750 Output Total 2009 900 Balance -24 -150 Weight 141.5 kg 140.5 kg Exam: General: Awake and Alert. No acute distress. Resting comfortably in bed. Head: Normocephalic. Atraumatic. Eyes: Pupils equal and round. EOMI. Sclera white. Ears: No drainage noted. Nose: Nares normal & without exudate. Oropharynx: Moist mucous membranes. Neck: Supple movements. Cardiovascular: Regular rate & rhythm. No murmurs, rubs, or gallops appreciated. Pulmonary: Lungs clear to auscultation bilaterally. No increased work of breathing. Gastrointestinal: Abdomen soft, obese, non-tender, non-distended. Normoactive bowel sounds. Skin: Chronic dysvascular changes of the pretibial skin on the left lower extremity. The extremity surgical site is wrapped with an Chente wrap, which is clean, dry, and intact. Psychiatric: Judgement and insight appear to be good. Patient is oriented to date, location, and situation. Affect appropriate. Extremities: Status post right below the knee amputation. He does have contractures of the DIPs of the fourth and fifth digits of the left hand. Neurological: CN III-XII grossly intact. Sensation to light touch is absent starting from just below the knee on the left and going distally; he also has diminished sensation of the fingertips bilaterally. Proprioception is absent on the left lower extremity. Speech is fluent with good content and without dysarthria. Muscle Strength: Full 5/5 strength in all major muscle groups of the upper extremities as well as proximal bilateral lower extremities. He has at least 3/ 5 strength of right knee extensors and 1/5 strength of left ankle and toe dorsiflexors and plantar flexors. Results Laboratory Results: 01/18/18 05:05 01/18/18 05:05 01/17/18 01/17/18 01/18/18 13:52 20:56 05:05 WBC 12.6 H 11.5 H RBC 3.66 L 3.59 L Hgb 9.9 L 9.7 L Hct 29.2 L 28.6 L MCV 80 80 MCH 27.1 27.1 MCHC 34.0 34.0 RDW 18.3 H 18.2 H Plt Count 298 268 Seg Neutrophils % 77.4 Lymphocytes % 13.0 Monocytes % 8.1 Eosinophils % 1.1 Basophils % 0.4 Absolute Neutrophils 8.9 H Absolute Lymphocytes 1.5 Absolute Monocytes 0.9 Absolute Eosinophils 0.1 Absolute Basophils 0.0 Sodium Potassium Chloride Carbon Dioxide Anion Gap BUN Creatinine Est GFR ( Amer) Est GFR (Non-Af Amer) Glucose Calcium Total Bilirubin AST ALT Alkaline Phosphatase Total Protein Albumin Blood Type A POSITIVE Antibody Screen NEGATIVE 01/18/18 05:05 WBC RBC Hgb Hct MCV MCH MCHC RDW Plt Count Seg Neutrophils % Lymphocytes % Monocytes % Eosinophils % Basophils % Absolute Neutrophils Absolute Lymphocytes Absolute Monocytes Absolute Eosinophils Absolute Basophils Sodium 130.9 L Potassium 4.4 Chloride 93 L Carbon Dioxide 25 Anion Gap 13 BUN 45 H Creatinine 1.70 H Est GFR ( Amer) 50 L Est GFR (Non-Af Amer) 41 L Glucose 209 H Calcium 7.9 L Total Bilirubin 1.0 AST 21 ALT 20 L Alkaline Phosphatase 81 Total Protein 6.2 L Albumin 3.0 L Blood Type Antibody Screen 01/13/18 Unknown Leg - Below Knee Amputation Site Gram Stain - Final 01/13/18 Unknown Leg - Below Knee Amputation Site Wound Culture - Final NO AEROBIC OR ANAEROBIC ORGANISMS RECOVERED 01/14/18 01/16/18 12:03 05:10 Troponin I < 0.012 < 0.012 Impressions: Foot X-Ray 01/10/18 13:22 IMPRESSION: 1. Soft tissue injury along the plantar aspect of the distal calcaneus likely consistent with the patient's known ulcer. The findings as detailed above suggest osteomyelitis involving the plantar aspect of the distal calcaneus. 2. Persistent soft tissue swelling foot and ankle with decrease since the prior study. Assessment & Plan - Plan Summary Plan Summary: Assessment and Plan: 62-year-old male with diabetic foot ulcer and osteomyelitis status post right below the knee amputation. 1. Gait and ADL Dysfunction secondary to right [id number] amputation - Continue PT and OT to maximize mobility, safety, endurance, and self-care. 2. Right below the knee amputation - Nonweightbearing right lower extremity - Recommend continued PT & OT for pre-prosthetic training including: - ROM of joints proximal to amputation (avoid pillow behind knee to prevent knee flexion contracture) - Strengthening gluteus collin & medius as well as hamstrings & quads - Mobility, transfers, and ADLs. - Consult Manager Of Regulatory Affairs for evaluation and teaching (will order in rehab). Post-Prosthetic Training will include: - ROM of joints proximal to amputation - strengthen gluteus collin & medius as well as hamstrings & quads - mobility, transfers, ADLS - gait with prosthesis on all surfaces - improving balance on all surfaces - ascending/descending stairs, curbs & ramps - prosthetic & skin care - proper donning & doffing of prosthesis - Pain Management - For post-operative pain, use narcotics as tolerated. - For phantom pain, use Gabapentin, topical anesthetics, Beta Blockers, or a planting machine crewman. 3. Diabetes mellitus type 2 with diabetic neuropathy - Continue carbohydrate controlled diet, insulin therapy, Accu-Cheks, sliding scale insulin, and diabetic education - Continue management per hospitalist medicine 4. Acute kidney injury on chronic kidney disease - Baseline creatinine is around 1.47 - Lasix dose has been reduced and metolazone has been held - Continue management per hospitalist medicine 5. Disposition -Based on the patient's diagnosis, medical co-morbidities, and current functional status, he is a good candidate for acute inpatient rehabilitation as he would benefit from 3 hours per day of intensive therapies in at least 2 disciplines under the close medical supervision of a physician. The patient is expected to make significant gains in a relatively short period of time to the point that he can safely be discharged home with supervision and assistance from family. Barring any unforeseen events or complications, there is a plan to admit the patient to acute inpatient rehabilitation at [facility] in [place] on 01/19/2018. This case was discussed with the patient's acute care therapists, nurse on the floor, planner intern, and service line coordinator at [facility]. Thank you for allowing us to participate in the care of this patient. Please call with any questions. A total of 80 minutes was spent on [id number] communication with the patient and coordination of care.
[2018-01-18] MEDS: METOCLOPRAMIDE HCL 10 MG TABLET PO SCH ×3 (11:42→17:10)
--- NOTE | 2018-01-18 11:51 | PDOC PROGRESS REPORT ---
Subjective Progress Note for:: 01/18/18 Subjective:: no c/o Reason For Visit: OSTEOMYELITIS RIGHT FOOT/RIGHT DIABETIC FOOT ULCER Physical Exam Vital Signs: Temp Pulse Resp BP Pulse Ox 98.4 F 72 20 134/71 H 96 01/18/18 08:00 01/18/18 08:00 01/18/18 08:00 01/18/18 08:00 01/18/18 08:46 Pulse Oximeter Continuous Start: 01/15/18 12: 42 Freq: RTQ4 Status: Active Document 01/18/18 08:46 [facility] (Rec: 01/18/18 08:47 [facility] [id number]) Pulse Oximetry Assessment Oxygen Saturation (92-100) 96 Oxygen Delivery Method Room Air Fraction of Inspired Oxygen (FIO2) 21 Equipment Usage Equipment Standby Continuous SpO2 Machine # 2 Additional RT Notes Other Patient used cpap equipment last night with no issues. Intake & Output 01/17/18 01/18/18 01/19/18 06:59 06:59 06:59 Intake Total 1985 750 50 Output Total 2009 900 Balance -24 -150 50 Weight 141.5 kg 140.5 kg General appearance: PRESENT: no acute distress Extremities exam: PRESENT: other - R BKA: flaps viable with area of discoloration of upper anterior flap, stapled line intact, scant serous drainage , no odor Results Laboratory Results: 01/18/18 05:05 01/18/18 05:05 01/17/18 01/17/18 01/18/18 13:52 20:56 05:05 WBC 12.6 H 11.5 H RBC 3.66 L 3.59 L Hgb 9.9 L 9.7 L Hct 29.2 L 28.6 L MCV 80 80 MCH 27.1 27.1 MCHC 34.0 34.0 RDW 18.3 H 18.2 H Plt Count 298 268 Seg Neutrophils % 77.4 Lymphocytes % 13.0 Monocytes % 8.1 Eosinophils % 1.1 Basophils % 0.4 Absolute Neutrophils 8.9 H Absolute Lymphocytes 1.5 Absolute Monocytes 0.9 Absolute Eosinophils 0.1 Absolute Basophils 0.0 Sodium Potassium Chloride Carbon Dioxide Anion Gap BUN Creatinine Est GFR ( Amer) Est GFR (Non-Af Amer) Glucose Calcium Total Bilirubin AST ALT Alkaline Phosphatase Total Protein Albumin Blood Type A POSITIVE Antibody Screen NEGATIVE 01/18/18 05:05 WBC RBC Hgb Hct MCV MCH MCHC RDW Plt Count Seg Neutrophils % Lymphocytes % Monocytes % Eosinophils % Basophils % Absolute Neutrophils Absolute Lymphocytes Absolute Monocytes Absolute Eosinophils Absolute Basophils Sodium 130.9 L Potassium 4.4 Chloride 93 L Carbon Dioxide 25 Anion Gap 13 BUN 45 H Creatinine 1.70 H Est GFR ( Amer) 50 L Est GFR (Non-Af Amer) 41 L Glucose 209 H Calcium 7.9 L Total Bilirubin 1.0 AST 21 ALT 20 L Alkaline Phosphatase 81 Total Protein 6.2 L Albumin 3.0 L Blood Type Antibody Screen 01/13/18 Unknown Leg - Below Knee Amputation Site Gram Stain - Final 01/13/18 Unknown Leg - Below Knee Amputation Site Wound Culture - Final NO AEROBIC OR ANAEROBIC ORGANISMS RECOVERED 01/14/18 01/16/18 12:03 05:10 Troponin I < 0.012 < 0.012 Impressions: Foot X-Ray 01/10/18 13:22 IMPRESSION: 1. Soft tissue injury along the plantar aspect of the distal calcaneus likely consistent with the patient's known ulcer. The findings as detailed above suggest osteomyelitis involving the plantar aspect of the distal calcaneus. 2. Persistent soft tissue swelling foot and ankle with decrease since the prior study. Assessment & Plan - Diagnosis (1) Diabetic foot ulcer Qualifiers: Diabetic foot ulcer location: heel Diabetes mellitus type: type 2 Laterality: right Is this a current diagnosis for this admission?: Yes (2) Osteomyelitis of right foot Qualifiers: Osteomyelitis type: unspecified type Qualified Code(s): M86.9 - Osteomyelitis, unspecified Is this a current diagnosis for this admission?: Yes - Plan Summary Plan Summary: A/ POD #4 after right completion BKA PE shows healthy flaps, except for area of fixed discoloration despite tension free closure and no anterio flap elevation off tibia P/ OK to discharge to rehabilitation tomorrow )Iza borden) by General Surgery viewpoint; follow up with local wound clinic or our office as necessary
--- NOTE | 2018-01-18 14:57 | Progress Note ---
Provider Note Provider Note: ID Consult Note - Follow up Asked to review patient's chart and provide input regarding antibiotic management. Pt not seen or examined. See prior note for course/details prior to present. Polymicrobial diabetic foot infection with osteomyelitis - With pt having undergone BKA and all infected tissue from the foot resected, no further therapy is indicated based on results of the culture obtained in the OR. - This has been adequately treated. Clostridium difficile diarrhea - Pt had new onset of diarrhea with 3-5 stools recorded per day, from 01/17 and 01/18, PCR positive stool from 01/17, recent antibiotic exposure - Avoid unnecessary antibiotic exposure / limit antibiotic exposure to that which is absolutely necessary (see below) - A recent change in the C difficile guidelines is to remove Flagyl from first line agents, as Flagyl appears to be inferior to vancomycin - Recommend stopping PO Flagyl if the patient can be treated with PO vancomycin ; recommend PO vancomycin 125 mg q 6h for 14 days - No role for "test of cure"; C difficle testing often remains positive even in someone with resolution of diarrhea Morganella morganii bacteremia - growth from blood cx from 01/10, treated with ciprofloxacin from 01/13 to (day 6 today) - Today 01/18, ciprofloxacin has been discontinued in favor of ertapenem - Agree with continuing ertapenem for one more day (last dose on 01/19) to complete 7 days. Would not recommend treating any longer than that considering concurrent C difficile infection Enterococcus faecalis bacteremia - Duration of therapy for enterococcal bacteremia varies depending on source. Pt had a low grade bacteremia on admission in the setting of a polymicrobial infection with more virulent organisms. Pt received several days of IV vancomycin, then IV penicillin. - At this point, IV penicillin can be discontinued. Vishal Jewell MD [facility] Infectious Diseases pager [phone]
--- NOTE | 2018-01-18 16:48 | PDOC PROGRESS REPORT ---
Subjective Progress Note for:: 01/18/18 Subjective:: Today is Day 3 post revision of right BKA. His stool for C.difficile was positive and was initially started on Flagyl, but was switched to Vancomycin by I.D. He was seen by both Dr Jewell and Dr Jeff Salcido and we appreciate their input in the mgt of this pt. Pt has been accepted for inpatient REHAB at [facility] on 01/19/2018. D/W pt about this and he is in agreement. Reason For Visit: OSTEOMYELITIS RIGHT FOOT/RIGHT DIABETIC FOOT ULCER Physical Exam Vital Signs: Temp Pulse Resp BP Pulse Ox 98.5 F 70 16 131/52 H 96 01/18/18 11:25 01/18/18 14:00 01/18/18 11:25 01/18/18 11:25 01/18/18 12:00 Pulse Oximeter Continuous Start: 01/15/18 12: 42 Freq: RTQ4 Status: Complete Document 01/18/18 14:43 DSH (Rec: 01/18/18 14:44 DSH [id number]) Pulse Oximetry Assessment Equipment Usage Equipment Discontinued Continuous SpO2 Machine # 2 Additional RT Notes Other Patient's 02 saturation has been 96-98% on RA, equipment was found on standby. Patient is being discharged on . Intake & Output 01/17/18 01/18/18 01/19/18 06:59 06:59 06:59 Intake Total 1985 750 150 Output Total 2009 900 Balance -24 -150 150 Weight 141.5 kg 140.5 kg General appearance: PRESENT: no acute distress, cooperative, obese, well- developed, well-nourished Head exam: PRESENT: atraumatic, normocephalic Eye exam: PRESENT: EOMI, PERRLA Mouth exam: PRESENT: neck supple, tongue midline Neck exam: PRESENT: full ROM Respiratory exam: PRESENT: clear to auscultation eliseo, symmetrical Cardiovascular exam: PRESENT: +S1, +S2 Pulses: PRESENT: +1 pedal pulses bilateral GI/Abdominal exam: PRESENT: normal bowel sounds, soft Rectal exam: PRESENT: deferred Extremities exam: PRESENT: right BKA Neurological exam: PRESENT: alert, awake, oriented to person, oriented to place , oriented to time Results Laboratory Results: 01/18/18 05:05 01/18/18 05:05 01/17/18 01/17/18 01/18/18 13:52 20:56 05:05 WBC 12.6 H 11.5 H RBC 3.66 L 3.59 L Hgb 9.9 L 9.7 L Hct 29.2 L 28.6 L MCV 80 80 MCH 27.1 27.1 MCHC 34.0 34.0 RDW 18.3 H 18.2 H Plt Count 298 268 Seg Neutrophils % 77.4 Lymphocytes % 13.0 Monocytes % 8.1 Eosinophils % 1.1 Basophils % 0.4 Absolute Neutrophils 8.9 H Absolute Lymphocytes 1.5 Absolute Monocytes 0.9 Absolute Eosinophils 0.1 Absolute Basophils 0.0 Sodium Potassium Chloride Carbon Dioxide Anion Gap BUN Creatinine Est GFR ( Amer) Est GFR (Non-Af Amer) Glucose Calcium Total Bilirubin AST ALT Alkaline Phosphatase Total Protein Albumin Blood Type A POSITIVE Antibody Screen NEGATIVE 01/18/18 05:05 WBC RBC Hgb Hct MCV MCH MCHC RDW Plt Count Seg Neutrophils % Lymphocytes % Monocytes % Eosinophils % Basophils % Absolute Neutrophils Absolute Lymphocytes Absolute Monocytes Absolute Eosinophils Absolute Basophils Sodium 130.9 L Potassium 4.4 Chloride 93 L Carbon Dioxide 25 Anion Gap 13 BUN 45 H Creatinine 1.70 H Est GFR ( Amer) 50 L Est GFR (Non-Af Amer) 41 L Glucose 209 H Calcium 7.9 L Total Bilirubin 1.0 AST 21 ALT 20 L Alkaline Phosphatase 81 Total Protein 6.2 L Albumin 3.0 L Blood Type Antibody Screen 01/13/18 Unknown Leg - Below Knee Amputation Site Gram Stain - Final 01/13/18 Unknown Leg - Below Knee Amputation Site Wound Culture - Final NO AEROBIC OR ANAEROBIC ORGANISMS RECOVERED 01/14/18 01/16/18 12:03 05:10 Troponin I < 0.012 < 0.012 Impressions: Foot X-Ray 01/10/18 13:22 IMPRESSION: 1. Soft tissue injury along the plantar aspect of the distal calcaneus likely consistent with the patient's known ulcer. The findings as detailed above suggest osteomyelitis involving the plantar aspect of the distal calcaneus. 2. Persistent soft tissue swelling foot and ankle with decrease since the prior study. Assessment & Plan - Diagnosis (1) Osteomyelitis of right foot Qualifiers: Osteomyelitis type: unspecified type Qualified Code(s): M86.9 - Osteomyelitis, unspecified Is this a current diagnosis for this admission?: Yes Plan: He is s.p right below knee amputation; ct with Ertapenem 1 G daily IV; Ruby 5/ 325 1 q4h prn po; Tylenol 650 mg q4h prn po. F/u surgicalist. (2) Diabetic foot ulcer Qualifiers: Diabetic foot ulcer location: heel Diabetes mellitus type: type 2 Laterality: right Is this a current diagnosis for this admission?: Yes Plan: He is s.p right BKA. Ct with Ertapenem 1G daily IV; ; Ruby 5/325 1 q4h prn po ; Tylenol 650 mg q4h prn po. F/u surgicalist. (3) Clostridium difficile colitis Is this a current diagnosis for this admission?: Yes Plan: Ct with Vancomycin 125 mg q6h po for 14 days as per ID recommendation. (4) Diabetes mellitus type 2 in nonobese Is this a current diagnosis for this admission?: Yes Plan: Ct with Lantus 40 iu BID subcut; Humalog 10 iu QAC;Accucheck QAC, QHS with slidding scale with humalog insulin as per [facility] protocol.1800 calorie ADA diet.Hold Metformin 500 mg BID for now. (5) Hypertension Qualifiers: Hypertension type: essential hypertension Qualified Code(s): I10 - Essential (primary) hypertension Is this a current diagnosis for this admission?: Yes Plan: Ct with Losartan 100 mg qd pO; Atenolol 100 mg qd PO; 2g sodium diet. (6) Hyperlipidemia Qualifiers: Hyperlipidemia type: mixed hyperlipidemia Qualified Code(s): E78.2 - Mixed hyperlipidemia Is this a current diagnosis for this admission?: Yes Plan: Ct with Atorvastatin 40 mg qhs po; 200 mg cholesterol diet. (7) Chronic diastolic CHF (congestive heart failure) Is this a current diagnosis for this admission?: Yes Plan: Ct with Lasix 20 mg daily PO; KCL 20 MEQ qd po; strict input/output chart; Daily weight;Monitor chemistries daily. D/C Metolazone 5 mg qd due to worsening kidney function. (8) CAD (coronary artery disease) of artery bypass graft Is this a current diagnosis for this admission?: Yes Plan: Ct with Aspirin 81 mg qd po; cardiac diet. (9) GERD (gastroesophageal reflux disease) Is this a current diagnosis for this admission?: Yes Plan: Ct with Prevacid 30 mg qd po since we do not have Omeprazole in our formulary; Ct with Reglan 5 mg TID PO. (10) Fe deficiency anemia Qualifiers: Iron deficiency anemia type: unspecified iron deficiency Qualified Code(s) : D50.9 - Iron deficiency anemia, unspecified Is this a current diagnosis for this admission?: Yes Plan: Ct with FeSO4 325 mg BID po; Transfuse 1 unit of PRBC. monitor CBC daily. (11) Depression Qualifiers: Depression Type: unspecified Qualified Code(s): F32.9 - Major depressive disorder, single episode, unspecified Is this a current diagnosis for this admission?: Yes Plan: Ct with Celexa 20 mg qd po. (12) Obstructive sleep apnea Is this a current diagnosis for this admission?: Yes Plan: Ct with CPAP at night. (13) DVT prophylaxis Is this a current diagnosis for this admission?: Yes Plan: Ct with Heparin 5000iu subcut q8h; SCD.
[2018-01-18] MEDS ORDERED: ACETAMINOPHEN 1,000 MG/100 ML RTUPB IV PRN (17:29)
[2018-01-18] MEDS: VANCOMYCIN HCL INJ 500 MG VIAL PO SCH ×2 (19:25→23:35)
[2018-01-18] MEDS: ATORVASTATIN CALCIUM 40 MG TABLET PO SCH (21:11)
[2018-01-19] MEDS: VANCOMYCIN HCL INJ 500 MG VIAL PO SCH (05:14)
[2018-01-19] MEDS: LANSOPRAZOLE 30 MG TAB.RAP.DR PO SCH (05:14)
[2018-01-19] MEDS: INSULIN LISPRO 100 UNIT/ML 3 ML VIAL SUBCUT SCH (08:20)
[2018-01-19] MEDS: INSULIN LISPRO 100 UNIT/ML 3 ML VIAL SUBCUT PRN (08:20)
--- NOTE | 2018-01-19 09:14 | PDOC TRANSFER SUMMARY ---
General Admission Date/PCP: 01/10/18 15:16 ANA PAULA PULLIAM Admission Date: 01/10/18 Transfer Date: 01/19/18 Accepting Facility: [facility] Resuscitation Status: Full Code - Transfer Diagnosis (1) Osteomyelitis of right foot Is this a current diagnosis for this admission?: Yes (2) Diabetic foot ulcer Is this a current diagnosis for this admission?: Yes (3) Clostridium difficile colitis Is this a current diagnosis for this admission?: Yes (4) Diabetes mellitus type 2 in nonobese Is this a current diagnosis for this admission?: Yes (5) Hypertension Is this a current diagnosis for this admission?: Yes (6) Hyperlipidemia Is this a current diagnosis for this admission?: Yes (7) Chronic diastolic CHF (congestive heart failure) Is this a current diagnosis for this admission?: Yes (8) CAD (coronary artery disease) of artery bypass graft Is this a current diagnosis for this admission?: Yes (9) GERD (gastroesophageal reflux disease) Is this a current diagnosis for this admission?: Yes (10) Fe deficiency anemia Is this a current diagnosis for this admission?: Yes (11) Depression Is this a current diagnosis for this admission?: Yes (12) Obstructive sleep apnea Is this a current diagnosis for this admission?: Yes (13) DVT prophylaxis Is this a current diagnosis for this admission?: Yes - Transfer Medications Home Medications: Aspirin [Aspirin 81 mg Chewable Tablet] 81 mg PO DAILY 01/10/18 Atenolol [Tenormin] 100 mg PO DAILY 01/10/18 Atorvastatin Calcium [Lipitor 40 mg Tablet] 40 mg PO QHS 01/10/18 Citalopram Hydrobromide [Celexa 20 mg Tablet] 20 mg PO DAILY 01/10/18 Cranberry Conc/Ascorbic Acid [Cranberry Concentrate Softgel] 1 each PO DAILY Furosemide [Lasix 20 mg Tablet] 20 mg PO BID 01/10/18 Insulin Aspart [Novolog Insulin 100 Unit/1 ml 10 ml] 10 unit SQ AC 01/10/18 Insulin Glargine,Hum.rec.anlog [Lantus] 40 unit SQ Q12 01/10/18 Losartan Potassium [Cozaar] 100 mg PO DAILY 01/10/18 Metformin HCl [Glucophage] 500 mg PO BIDACBS 01/10/18 Metoclopramide HCl [Reglan] 5 mg PO TID 01/10/18 Metolazone [Zaroxolyn 5 Mg Tablet] 5 mg PO DAILY 01/10/18 Omeprazole 20 mg PO DAILY 01/10/18 Potassium Chloride [K-Tab ER] 20 meq PO DAILY 01/10/18 Transfer Medications: Current Medications Acetaminophen (Tylenol 325 Mg Tablet) 650 mg PO Q6HP PRN PRN Reason: FOR PAIN Stop: 02/16/18 16:21 Hydrocodone Bitart/Acetaminophen ([place] 5-325 Mg Tablet) 1 tab PO Q4HP PRN PRN Reason: FOR PAIN Stop: 01/23/18 13:46 Last Admin: 01/17/18 21:46 Dose: 1 tab Aspirin (Aspirin 81 Mg Chewable Tablet) 81 mg PO DAILY BERT Stop: 02/15/18 09:59 Last Admin: 01/18/18 10:12 Dose: 81 mg Atenolol (Tenormin 50 Mg Tablet) 100 mg PO DAILY BERT Stop: 02/10/18 09:59 Last Admin: 01/18/18 10:12 Dose: 100 mg Atorvastatin Calcium (Lipitor 40 Mg Tablet) 40 mg PO QHS BERT Stop: 02/09/18 21:59 Last Admin: 01/18/18 21:11 Dose: 40 mg Citalopram Hydrobromide (Celexa 20 Mg Tablet) 20 mg PO DAILY BERT Stop: 02/10/18 09:59 Last Admin: 01/18/18 10:12 Dose: 20 mg Dextrose (Dextrose Inj 50% Syringe (25 Gm/50 Ml)) 12.5 gm IV PRN PRN; Protocol PRN Reason: FOR BG 50-69 IN ALERT PATIENT Stop: 02/09/18 16:41 Dextrose (Dextrose Inj 50% Syringe (25 Gm/50 Ml)) 25 gm IV PRN PRN PRN Reason: Protocol Stop: 02/09/18 16:41 Docusate Sodium (Colace 100 Mg Capsule) 100 mg PO DAILY BERT Stop: 02/10/18 09:59 Last Admin: 01/18/18 10:13 Dose: Not Given Ferrous Sulfate (Feosol 325 Mg Tablet) 325 mg PO BIDPCBS BERT Stop: 02/09/18 17:59 Last Admin: 01/18/18 17:10 Dose: 325 mg Furosemide (Lasix 20 Mg Tablet) 20 mg PO DAILY BERT Stop: 02/16/18 09:59 Last Admin: 01/18/18 10:12 Dose: 20 mg Glucagon (Glucagen Inj 1 Mg Vial) 1 mg IM PRN PRN; Protocol PRN Reason: EVALUATE FOR BG < 70 Stop: 02/09/18 16:41 Glucose (Glutose 40% Gel 15 Gm Tube) 15 gm PO PRN PRN; Protocol PRN Reason: FOR BG 50-69 IN ALERT PATIENT Stop: 02/09/18 16:41 Glucose (Glutose 40% Gel 15 Gm Tube) 30 gm PO PRN PRN; Protocol PRN Reason: FOR BG < 50 IN ALERT PATIENT Stop: 02/09/18 16:41 Heparin Sodium (Porcine) (Heparin Inj 5,000 Units/Ml 1 Ml Syringe) 5,000 unit SUBCUT Q12 [facility] Stop: 02/15/18 09:59 Last Admin: 01/18/18 21:11 Dose: 5,000 unit Ertapenem 1 gm/ Sodium (Chloride) 50 mls @ 100 mls/hr IV DAILY [facility] Stop: 01/25/18 09:59 Last Infusion: 01/18/18 10:47 Dose: Infused Influenza Virus Vaccine Quadrival (Fluarix Adlt Quad 2017- Vac 0.5 Ml Syr) 0.5 ml IM .DISCHARGE PRN PRN Reason: THIS MED IS NOT "PRN" Stop: 02/09/18 19:47 Insulin Glargine (Lantus Insulin 100 Unit/1 Ml 10 Ml) 40 unit SUBCUT Q12 [facility] Stop: 02/09/18 21:59 Last Admin: 01/18/18 21:11 Dose: 40 unit Insulin Human Lispro (Humalog Insulin 100 Unit/1 Ml 3 Ml Vial) 0 unit SUBCUT ACP PRN PRN Reason: Protocol Stop: 02/10/18 07:59 Last Admin: 01/19/18 08:20 Dose: 4 unit Insulin Human Lispro (Humalog Insulin 100 Unit/1 Ml 3 Ml Vial) 10 unit SUBCUT AC [facility] Stop: 02/10/18 07:59 Last Admin: 01/19/18 08:20 Dose: 10 unit Lansoprazole (Prevacid 30 Mg Odt Tablet) 30 mg PO Q6AM [facility] Stop: 02/10/18 05:59 Last Admin: 01/19/18 05:14 Dose: 30 mg Lidocaine HCl (Xylocaine 2% Viscous Soln 20 Ml Udcup) 20 ml MM Q4HP PRN PRN Reason: [employer] Stop: 02/11/18 20:15 Last Admin: 01/12/18 20:25 Dose: 20 ml Losartan Potassium (Cozaar 50 Mg Tablet) 100 mg PO DAILY BERT Stop: 02/10/18 09:59 Last Admin: 01/18/18 10:13 Dose: 100 mg Metoclopramide HCl (Reglan 10 Mg Tablet) 5 mg PO TID BERT Stop: 02/14/18 13:59 Last Admin: 01/18/18 17:10 Dose: 5 mg Patient Own Medication (Cranberry Conc/Ascorbic Acid [Cranberry Concentrate Softgel]) 1 each PO .DAILY BERT Stop: 02/15/18 09:59 Potassium Chloride (Klor-Con 10 Meq Capsule Er) 20 meq PO DAILY BERT Stop: 02/10/18 09:59 Last Admin: 01/18/18 10:12 Dose: 20 meq Vancomycin HCl (Vancocin Inj 500 Mg Vial) 125 mg PO Q6 BERT Stop: 02/01/18 18:59 Last Admin: 01/19/18 05:14 Dose: 125 mg - Allergies Allergies/Adverse Reactions: lisinopril Allergy (Verified 01/10/18 12:51) Hospital Course Hospital Course: 62 year old man with multiple medical hx who was admitted om 01/10/2018 for right foot diabetic ulcer/osteomyelitis of right calcaneus. He had right below knee guillotine amputation on 01/13/2018 and had completion of right below knee amputation o 01/15/2018. He had developed acute on chronic blood loss anemia and was transfused with a total of 3 units of PRBC. He also developed acute kidney injury on CKD stage 3. His Metolazone was discontinued and Lasix was decreased to 20 mg daily. He had blood cultures and wound cultures and has had IV Vancomycin, Zosyn, Ciprofoxacin, Penicillin-G and Ertapenem based on sensitivity results. He lately developed C.difficile colitis and was started on Vancomycin 125 mg q6h po for 14 days as per ID recommendation. Today is day 2 of the the PO Vancomycin. He was accepted for inpatient REHAB at [facility] By Dr Jeff Salcido. Patient and family are in agreement with this plan of care.He will be transferred there today as soon as possible. Physical Exam Vital Signs: Temp Pulse Resp BP Pulse Ox 98.1 F 61 16 142/54 H 96 01/18/18 23:09 01/19/18 07:00 01/18/18 19:48 01/18/18 23:09 01/18/18 23:09 Pulse Oximeter Continuous Start: 01/15/18 12: 42 Freq: RTQ4 Status: Complete Document 01/18/18 14:43 DSH (Rec: 01/18/18 14:44 DSH [id number]) Pulse Oximetry Assessment Equipment Usage Equipment Discontinued Continuous SpO2 Machine # 2 Additional RT Notes Other Patient's 02 saturation has been 96-98% on RA, equipment was found on standby. Patient is being discharged on . Intake & Output 01/18/18 01/19/18 01/20/18 06:59 06:59 06:59 Intake Total 750 1200 Output Total 900 650 Balance -150 550 Weight 140.5 kg 144.1 kg General appearance: PRESENT: no acute distress, cooperative, obese, well- developed, well-nourished Head exam: PRESENT: atraumatic, normocephalic Eye exam: PRESENT: EOMI, PERRLA Ear exam: PRESENT: TM's normal bilaterally Mouth exam: PRESENT: neck supple, tongue midline Neck exam: PRESENT: full ROM Respiratory exam: PRESENT: clear to auscultation eliseo, symmetrical Cardiovascular exam: PRESENT: +S1, +S2 Pulses: PRESENT: +2 pedal pulses bilateral GI/Abdominal exam: PRESENT: normal bowel sounds, soft Rectal exam: PRESENT: deferred Neurological exam: PRESENT: alert, awake, oriented to person, oriented to place , oriented to time Psychiatric exam: PRESENT: normal mood Results Laboratory Results: 01/18/18 05:05 01/18/18 05:05 01/14/18 01/16/18 12:03 05:10 Troponin I < 0.012 < 0.012 Impressions: Foot X-Ray 01/10/18 13:22 IMPRESSION: 1. Soft tissue injury along the plantar aspect of the distal calcaneus likely consistent with the patient's known ulcer. The findings as detailed above suggest osteomyelitis involving the plantar aspect of the distal calcaneus. 2. Persistent soft tissue swelling foot and ankle with decrease since the prior study.
[2018-01-19] MEDS: INSULIN GLARGINE,HUM.REC.ANLOG 1,000 UNIT/10 ML UNIT SUBCUT SCH (09:30)
[2018-01-19] MEDS: POTASSIUM CHLORIDE 10 MEQ CAPSULE.ER PO SCH (09:31)
[2018-01-19] MEDS: HEPARIN SOD (PORCINE) 5,000 UNIT/ML 1 ML SYRINGE SUBCUT SCH (09:31)
[2018-01-19] MEDS: FUROSEMIDE 20 MG TABLET PO SCH (09:32)
[2018-01-19] MEDS: ATENOLOL 50 MG TABLET PO SCH (09:32)
[2018-01-19] MEDS: METOCLOPRAMIDE HCL 10 MG TABLET PO SCH (09:32)
[2018-01-19] MEDS: ASPIRIN 81 MG TABLET, CHEWABLE PO SCH (09:32)
[2018-01-19] MEDS: CITALOPRAM HYDROBROMIDE 20 MG TABLET PO SCH (09:32)
[2018-01-19] MEDS: FERROUS SULFATE 325 MG TABLET PO SCH (09:32)
[2018-01-19] MEDS: ERTAPENEM SODIUM 1 GM in NORMAL SALINE 50 ML IV SCH (09:33)
[2018-01-19 10:36] VITALS: BP 149/57
== END 2018-01-19 10:59 | disposition short-term general hospital (02) | DRG 617 ==
LOC: ER 12:50 → EH 15:16 → 4N 17:50
PROVIDERS: ADMIT Internal Medicine; ATTEND Internal Medicine
PROC: 30233N1 Transfusion of Nonautologous Red Blood Cells into Peripheral Vein, Percutaneous Approach (ICD-10-PCS; 2018-01-11)
PROC: 5A09457 Assistance with Respiratory Ventilation, 24-96 Consecutive Hours, Continuous Positive Airway Pressure (ICD-10-PCS; 2018-01-11)
PROC: 0Y6H0Z3 Detachment at Right Lower Leg, Low, Open Approach (ICD-10-PCS; 2018-01-13)
PROC: 0Y6H0Z3 Detachment at Right Lower Leg, Low, Open Approach (ICD-10-PCS; principal; 2018-01-15 08:00)
PROC: 30233N1 Transfusion of Nonautologous Red Blood Cells into Peripheral Vein, Percutaneous Approach (ICD-10-PCS; 2018-01-17)
PROC: 3E02340 Introduction of Influenza Vaccine into Muscle, Percutaneous Approach (ICD-10-PCS; 2018-01-19)
DX: E11.69 Type 2 diabetes mellitus with other specified complication (principal); L97.414 Non-pressure chronic ulcer of right heel and midfoot with necrosis of bone; M86.171 Other acute osteomyelitis, right ankle and foot; A04.72 Enterocolitis due to Clostridium difficile, not specified as recurrent; I13.0 Hypertensive heart and chronic kidney disease with heart failure and stage 1 through stage 4 chronic kidney disease, or unspecified chronic kidney disease; I50.32 Chronic diastolic (congestive) heart failure; D62 Acute posthemorrhagic anemia; Z68.42 Body mass index [BMI] 45.0-49.9, adult; E11.621 Type 2 diabetes mellitus with foot ulcer; N18.3 Chronic kidney disease, stage 3 (moderate); E11.22 Type 2 diabetes mellitus with diabetic chronic kidney disease; E78.2 Mixed hyperlipidemia; I25.10 Atherosclerotic heart disease of native coronary artery without angina pectoris; F32.9 Major depressive disorder, single episode, unspecified; K21.9 Gastro-esophageal reflux disease without esophagitis; D50.0 Iron deficiency anemia secondary to blood loss (chronic); G47.33 Obstructive sleep apnea (adult) (pediatric); N17.9 Acute kidney failure, unspecified; E66.01 Morbid (severe) obesity due to excess calories; E11.40 Type 2 diabetes mellitus with diabetic neuropathy, unspecified; E11.65 Type 2 diabetes mellitus with hyperglycemia; M17.0 Bilateral primary osteoarthritis of knee; B96.20 Unspecified Escherichia coli [E. coli] as the cause of diseases classified elsewhere; B96.4 Proteus (mirabilis) (morganii) as the cause of diseases classified elsewhere; B95.61 Methicillin susceptible Staphylococcus aureus infection as the cause of diseases classified elsewhere; B95.2 Enterococcus as the cause of diseases classified elsewhere; Z23 Encounter for immunization; Z95.1 Presence of aortocoronary bypass graft; Z79.899 Other long term (current) drug therapy; Z90.49 Acquired absence of other specified parts of digestive tract; Z88.8 Allergy status to other drugs, medicaments and biological substances; Z79.82 Long term (current) use of aspirin; Z79.4 Long term (current) use of insulin
CPT/HCPCS: 01482; 36415; 36430; 80053; 80061; 80202; 82565; 82803; 82962; 83036; 83605; 84443; 84484; 85025; 85027; 86850; 86900; 86901; 86920; 87040; 87045; 87070; 87075; 87077; 87186; 87205; 87493; 88307; 90471; 90686; 93005; 93010; 93306; 94660; 94762; 99285; G0008; G8978-GP; G8979-GP; G8987-GO; G8988-GO; J0131; J0330; J0744; J1100; J1170; J1335; J1644; J1815; J1940; J2250; J2270; J2405; J2540; J2704; J3010; J3370; J3490; J7030; J7060; P9016

== ENCOUNTER 2018-02-16 11:50 | Emergency (ER) | payer MEDICARE, MEDICAID ==
--- NOTE | 2018-02-16 12:13 | ER Document Report ---
ED Medical Screen (RME) - General Chief Complaint: Wound Infection Stated Complaint: LEG ISSUE POST SURGERY Time Seen by Provider: 02/16/18 12:04 TRAVEL OUTSIDE OF THE [place] IN LAST 30 DAYS: No - HPI Notes: 02/16/18 12:11 Patient is a 63-year-old male that presents to the emergency department for chief complaint of right BKA wound infection. Patient had a right BKA on for osteomyelitis of the right foot secondary to diabetic ulcers. He reports increased purulent drainage from his incision site over the last few days. He denies fevers and chills, nausea, vomiting, abdominal pain, shortness of breath and congestion. He is not currently on any antibiotics. He last saw his primary care physician on but states it is draining more since seeing them. ROS: GENERAL: Denies fever of chills CV: Denies chest pain PHYSICAL EXAMINATION: GENERAL: Well-appearing, well-nourished and in no acute distress. HEAD: Atraumatic, normocephalic. EYES: Pupils equal round extraocular movements intact, conjunctiva are normal. ENT: Nares patent NECK: Normal range of motion LUNGS: No respiratory distress Musculoskeletal: Wound dressing to right BKA site NEUROLOGICAL: Normal speech, normal gait. PSYCH: Normal mood, normal affect. MDM: Patient seen and examined for rapid initial assessment. Vital signs reviewed. A comprehensive ED assessment and evaluation of the patient, analysis of test results and completion of the medical decision making process will be conducted by additional ED providers. 02/16/18 12:13 02/16/18 12:13 - Related Data Allergies/Adverse Reactions: lisinopril Allergy (Verified 02/16/18 11:52) Past Medical History - Past Medical History Cardiac Medical History: Reports: Hx Coronary Artery Disease, Hx Hypertension Endocrine Medical History: Reports: Hx Diabetes Mellitus Type 2 Renal/ Medical History: Denies: Hx Peritoneal Dialysis GI Medical History: Reports: Hx Gastroesophageal Reflux Disease, Hx Ulcer Musculoskeltal Medical History: Reports Hx Arthritis Psychiatric Medical History: Reports: Hx Depression Past Surgical History: Reports: Hx Appendectomy, Hx Cardiac Surgery, Hx Cholecystectomy, Hx Coronary Artery Bypass Graft - Immunizations Immunizations up to date: Yes Hx Diphtheria, Pertussis, Tetanus Vaccination: Yes History of Influenza Vaccine for 12/2016 - 05/2017 Season: Yes Influenza Administration Date for 12/2016 - 05/2017 Season: 12/27/16 Physical Exam - Vital signs Vitals: Temp Pulse Resp BP Pulse Ox 98.0 F 57 L 16 131/71 H 100 02/16/18 11:57 02/16/18 11:57 02/16/18 11:57 02/16/18 11:57 02/16/18 11:57 Course - Vital Signs Vital signs: Temp Pulse Resp BP Pulse Ox 98.0 F 57 L 16 131/71 H 100 02/16/18 11:57 02/16/18 11:57 02/16/18 11:57 02/16/18 11:57 02/16/18 11:57 Doctor's Discharge - Discharge Referrals: [facility],EMPLOYEE [Primary Care Provider] - Follow up as needed
[2018-02-16 12:32] LABS: ABSOLUTE EOSINOPHILS # (AUTO) 0.1 10^3/uL (0.0-0.6); ABSOLUTE LYMPHOCYTES (AUTO) 1.3 10^3/uL (0.5-4.7); ABSOLUTE MONOCYTES (AUTO) 0.5 10^3/uL (0.1-1.4); ABSOLUTE NEUT (AUTO) 5.5 10^3/uL (1.7-8.2); BASOPHILS % (AUTO) 0.6 % (0-2); EOSINOPHILS % (AUTO) 1.3 % (0-6); HEMATOCRIT 30.1 % (37.9-51.0); LYMPHOCYTES % (AUTO) 17.1 % (13-45); MEAN CORPUSCULAR HEMOGLOBIN 27.8 pg (27.0-33.4); MEAN CORPUSCULAR HGB CONC 33.4 g/dL (32.0-36.0); MEAN CORPUSCULAR VOLUME 83 fl (80-97); MONOCYTES % (AUTO) 6.1 % (3-13); PLATELET COUNT 214 10^3/uL (150-450); RED BLOOD COUNT 3.61 10^6/uL (4.35-5.55); SEGMENTED NEUTROPHILS % (AUTO) 74.9 % (42-78); TOTAL CELLS COUNTED % (AUTO) 100 %; WHITE BLOOD COUNT 7.3 10^3/uL (4.0-10.5)
[2018-02-16 12:55] LABS: ANION GAP 11 (5-19); BLOOD UREA NITROGEN 68 mg/dL (7-20); C-REACTIVE PROTEIN 13.2 mg/L (<10.0); CALCIUM 8.8 mg/dL (8.4-10.2); CARBON DIOXIDE 29 mmol/L (22-30); CHLORIDE 97 mmol/L (98-107); GLUCOSE 238 mg/dL (75-110); SODIUM 136.6 mmol/L (137-145)
[2018-02-16 13:12] LABS: ERYTHROCYTE SEDIMENTATION RATE 77 mm/hr (0-20)
--- NOTE | 2018-02-16 13:36 | ER Document Report ---
ED Wound - General Mode of Arrival: Wheelchair Information source: Patient TRAVEL OUTSIDE OF THE [place] IN LAST 30 DAYS: No <JEYSON NEGRON - Last Filed: 02/16/18 13:56> <SADIA PARDO - Last Filed: 02/16/18 16:32> - General Chief Complaint: Wound Infection Stated Complaint: LEG ISSUE POST SURGERY Time Seen by Provider: 02/16/18 12:04 Notes: 63-year-old male who presents to the emergency department today with complaints of a possible infection to his right BKA wound. Patient states that he was seen x4-5 days ago and had half of the xavier removed from the BKA with half still left in place. Patient states the next day or so he began developing increasing redness around the wound. Patient denies any fevers. Patient complains of a yellowish discharge from the area. (JEYSON NEGRON) - Related Data Allergies/Adverse Reactions: lisinopril Allergy (Verified 02/16/18 11:52) Past Medical History - General Information source: Patient - Social History Smoking Status: Never Smoker Cigarette use (# per day): No Frequency of alcohol use: None Drug Abuse: None Lives with: Family Family History: Reviewed & Not Pertinent - Noncontributory to the current presentation Patient has suicidal ideation: No Patient has homicidal ideation: No - Past Medical History Cardiac Medical History: Reports: Hx Coronary Artery Disease, Hx Hypertension Endocrine Medical History: Reports: Hx Diabetes Mellitus Type 2 GI Medical History: Reports: Hx Gastroesophageal Reflux Disease, Hx Ulcer Musculoskeletal Medical History: Reports Hx Arthritis Psychiatric Medical History: Reports: Hx Depression Past Surgical History: Reports: Hx Appendectomy, Hx Cardiac Surgery, Hx Cholecystectomy, Hx Coronary Artery Bypass GraftComment Only: Hx Orthopedic Surgery - BTK right leg amputation - Immunizations Immunizations up to date: Yes Hx Diphtheria, Pertussis, Tetanus Vaccination: Yes <JEYSON NEGRON - Last Filed: 02/16/18 13:56> Review of Systems - Review of Systems Constitutional: denies: Fever EENT: No symptoms reported Cardiovascular: No symptoms reported Respiratory: No symptoms reported Gastrointestinal: No symptoms reported Genitourinary: No symptoms reported Male Genitourinary: No symptoms reported Musculoskeletal: No symptoms reported Skin: See HPI, Other - wound infection Hematologic/Lymphatic: No symptoms reported Neurological/Psychological: No symptoms reported -: Yes All other systems reviewed and negative <JAMILJEYSON - Last Filed: 02/16/18 13:56> Physical Exam <JAMILJEYSON - Last Filed: 02/16/18 13:56> <SADIA PARDO - Last Filed: 02/16/18 16:32> - Vital signs Vitals: Temp Pulse Resp BP Pulse Ox 98.0 F 57 L 16 131/71 H 100 02/16/18 11:57 02/16/18 11:57 02/16/18 11:57 02/16/18 11:57 02/16/18 11:57 - Notes Notes: Physical Exam: General: Alert, appears well. HEENT: Normocephalic. Atraumatic. PERRL. Extraocular movements intact. Oropharynx clear. Neck: Supple. Non-tender. Respiratory: No respiratory distress. Clear and equal breath sounds bilaterally. Cardiovascular: Regular rate and rhythm. Abdominal: Normal Inspection. Non-tender. No distension. Normal Bowel Sounds. Back: Non-tender. No deformity or step off. Extremities: Upper extremities: Normal inspection. Normal ROM. Lower extremities: See skin Neurological: Normal cognition. AAOx4. Normal speech. Psychological: Normal affect. Normal Mood. Skin: Right BKA, erythema surrounding stapled wound with increasing erythema over the medial portion of the wound extended posteriorly. White/yellowish discharge from wound. (JEYSON NEGRON) Course - Laboratory Result Diagrams: 02/16/18 12:18 02/16/18 12:18 <JAMILJEYSON - Last Filed: 02/16/18 13:56> - Laboratory Result Diagrams: 02/16/18 12:18 02/16/18 12:18 - Diagnostic Test Radiology reviewed: Image reviewed, Reports reviewed - X-ray shows a recent right BKA, without abnormality other than the soft tissue swelling. - Consults Dr. Mcclellan Consulted provider: will come to ER <SADIA PARDO - Last Filed: 02/16/18 16:32> - Re-evaluation Re-evalutation: 02/16/18 16:30 Dr. Mcclellan came to see the patient, took out some of the xavier and cleaned out the wound. He requested we cover him for staph, strep and MRSA infection. ( SADIA PARDO) - Vital Signs Vital signs: Temp Pulse Resp BP Pulse Ox 98.0 F 57 L 16 131/71 H 100 02/16/18 11:57 02/16/18 11:57 02/16/18 11:57 02/16/18 11:57 02/16/18 11:57 - Laboratory Laboratory results interpreted by me: 02/16/18 02/16/18 12:18 12:18 RBC 3.61 L Hgb 10.0 L Hct 30.1 L RDW 19.0 H ESR 77 H Sodium 136.6 L Chloride 97 L BUN 68 H Creatinine 1.59 H Est GFR ( Amer) 54 L Est GFR (Non-Af Amer) 44 L Glucose 238 H C-Reactive Protein 13.2 H Discharge <JEYSON NEGRON - Last Filed: 02/16/18 13:56> <SADIA PARDO - Last Filed: 02/16/18 16:32> - Discharge Clinical Impression: Surgical wound infection Condition: Stable Disposition: HOME, SELF-CARE Additional Instructions: Take medication as prescribed. Follow-up with [facility] early next week. RETURN TO THE EMERGENCY ROOM IF ANY NEW OR WORSENING SYMPTOMS. Prescriptions: Cephalexin Monohydrate [Keflex 500 mg Capsule] 500 mg PO QID #28 capsule Sulfamethoxazole/Trimethoprim [Bactrim Ds Tablet] 2 tab PO BID #28 tablet Referrals: HEALTH,EMPLOYEE [ACTIVE STAFF] - Follow up as needed Scribe Attestation: 02/16/18 16:32 I personally performed the services described in the documentation, reviewed and edited the documentation which was dictated to the scribe in my presence, and it accurately records my words and actions. (SADIA PARDO) Scribe Documentation - Scribe Written by Scribe:: Gini Hudson, 02/16/2018 1401 acting as scribe for :: Tiana <JEYSON NEGRON - Last Filed: 02/16/18 13:56>
--- NOTE | 2018-02-16 13:39 | RADIOLOGY REPORT (SQ) ---
EXAM DESCRIPTION: KNEE RIGHT 2 VIEWS COMPLETED DATE/TIME: 02/16/2018 1:31 pm REASON FOR STUDY: osteomyelitis COMPARISON: Right foot films 01/10/2018 NUMBER OF VIEWS: Two views. TECHNIQUE: AP and lateral radiographic images acquired of the right knee. LIMITATIONS: None. FINDINGS: Post right [id number] amputation. Overlying skin xavier are present along the soft t issues of the stump. Osteotomy sites at the proximal tibia and fibula are normal. No aggressive bon y resorption worrisome for osteomyelitis. Two views of the right knee are unremarkable IMPRESSION: Post recent right [id number] amputation. Stump soft tissues and proximal tibia/ fib grady are unremarkable TECHNICAL DOCUMENTATION: JOB ID: [id number] [employer]- All Rights Reserved Reading location - IP/workstation name: [email or web address]
[2018-02-16] MEDS ORDERED: LIDOCAINE 1% INJ-PF (10 MG/ML) 30 ML SDV ONE (15:34)
[2018-02-16] MEDS ORDERED: CEPHALEXIN 500 MG CAPSULE PO ONE (16:30)
[2018-02-16] MEDS ORDERED: SULFAMETHOXAZOLE/TRIMETHOPRIM 800-160 MG TABLET PO ONE (16:30)
[2018-02-16 16:46] VITALS: BP 139/62
--- NOTE | 2018-02-16 22:39 | PDOC CONSULTATION ---
Consultation Consult Date: 02/16/18 Consult reason:: Right BKA stump abscess with necrotic tissue. History of Present Illness Admission Date/PCP: ANA PAULA PULLIAM History of Present Illness: FAVIO JEFFRIES is a 63 year old male seen in consultation at the request of the emergency department. This is a patient who recently underwent low knee amputation of the right leg. The patient is a diabetic. Over the last 1 week the patient has noticed increasing redness at the BKA incision with tenderness and drainage medially. The drainage became foul smelling and discolored. The pain is moderate, 5 out of 10. The pain is dull and throbbing. His pain does not radiate. Palpation makes the pain worse. Nothing makes it better. The patient has reported subjective fevers and chills. He denies chest pain, shortness of breath, headache, malaise, fatigue, blurry vision, nausea, vomiting , abdominal pain. Past Medical History Cardiac Medical History: Reports: Coronary Artery Disease, Hypertension Endocrine Medical History: Reports: Diabetes Mellitus Type 2 GI Medical History: Reports: Gastroesophageal Reflux Disease Musculoskeltal Medical History: Reports: Arthritis Psychiatric Medical History: Reports: Depression Hematology: Reports: Anemia Past Surgical History Past Surgical History: Reports: Appendectomy, Cholecystectomy, Coronary Artery Bypass Graft Comment Only: Orthopedic Surgery - BTK right leg amputation Social History Lives with: Family Smoking Status: Never Smoker Frequency of Alcohol Use: None Hx Recreational Drug Use: No Drugs: None Hx Prescription Drug Abuse: No Family History Family History: Reviewed & Not Pertinent - Noncontributory to the current presentation Parental Family History Reviewed: Yes Children Family History Reviewed: Yes Sibling(s) Family History Reviewed.: Yes Medication/Allergy Home Medications: Aspirin [Aspirin 81 mg Chewable Tablet] 81 mg PO DAILY 01/10/18 Atenolol [Tenormin] 100 mg PO DAILY 01/10/18 Atorvastatin Calcium [Lipitor 40 mg Tablet] 40 mg PO QHS 01/10/18 Citalopram Hydrobromide [Celexa 20 mg Tablet] 20 mg PO DAILY 01/10/18 Cranberry Conc/Ascorbic Acid [Cranberry Concentrate Softgel] 1 each PO DAILY Furosemide [Lasix 20 mg Tablet] 20 mg PO DAILY 01/10/18 Insulin Aspart [Novolog Insulin 100 Unit/1 ml 10 ml] 22 unit SQ AC 10/15/18 Insulin Glargine,Hum.rec.anlog [Lantus] 48 unit SQ Q12 01/10/18 Losartan Potassium [Cozaar] 100 mg PO DAILY 01/10/18 Metoclopramide HCl [Reglan] 5 mg PO TID 01/10/18 Metolazone [Zaroxolyn 5 Mg Tablet] 5 mg PO DAILY 01/10/18 Omeprazole 20 mg PO DAILY 01/10/18 Potassium Chloride [K-Tab ER] 20 meq PO DAILY 01/10/18 Cephalexin Monohydrate [Keflex 500 mg Capsule] 500 mg PO QID #28 capsule Sulfamethoxazole/Trimethoprim [Bactrim Ds Tablet] 2 tab PO BID #28 tablet Allergies/Adverse Reactions: lisinopril Allergy (Verified 02/16/18 11:52) Review of Systems Constitutional: ABSENT: anorexia, chills, fatigue Eyes: ABSENT: visual disturbances Ears: ABSENT: hearing changes Nose, Mouth, and Throat: ABSENT: sore throat Cardiovascular: ABSENT: chest pain, dyspnea on exertion Respiratory: ABSENT: cough, dyspnea Gastrointestinal: ABSENT: abdominal pain, bloating, hematemesis, nausea, vomiting Genitourinary: ABSENT: dysuria Musculoskeletal: ABSENT: back pain Integumentary: PRESENT: erythema, other - Foul-smelling drainage from his incision. Neurological: ABSENT: confusion, convulsions, dizziness Psychiatric: ABSENT: anxiety, depression Endocrine: ABSENT: cold intolerance, heat intolerance Hematologic/Lymphatic: ABSENT: easy bleeding, easy bruising Physical Exam Vital Signs: Temp Pulse Resp BP Pulse Ox 97.9 F 61 18 139/62 H 98 02/16/18 16:43 02/16/18 16:43 02/16/18 16:43 02/16/18 16:43 02/16/18 16:43 Intake & Output 02/15/18 02/16/18 02/17/18 06:59 06:59 06:59 Weight 134 kg General appearance: PRESENT: morbidly obese Head exam: PRESENT: atraumatic, normocephalic Eye exam: PRESENT: EOMI, PERRLA. ABSENT: scleral icterus Mouth exam: PRESENT: neck supple Teeth exam: PRESENT: poor dentation Neck exam: ABSENT: meningismus, tenderness, thyromegaly, tracheal deviation Respiratory exam: PRESENT: unlabored. ABSENT: chest wall tenderness, retraction , tachypnea, wheezes Cardiovascular exam: PRESENT: RRR Pulses: PRESENT: normal radial pulses GI/Abdominal exam: PRESENT: soft. ABSENT: distended, firm, guarding, tenderness Rectal exam: PRESENT: deferred Extremities exam: PRESENT: other - Right BKA stump with thick, foul-smelling drainage from the medial aspect of the incision. There is necrotic tissue present at the medial incision. Neurological exam: PRESENT: alert, awake, oriented to person, oriented to place Psychiatric exam: ABSENT: agitated, anxious, depressed Focused psych exam: ABSENT: delusional Skin exam: PRESENT: erythema - See extremity exam. ABSENT: cyanosis, jaundice Results Laboratory Results: 02/16/18 12:18 02/16/18 12:18 02/16/18 02/16/18 12:18 12:18 WBC 7.3 RBC 3.61 L Hgb 10.0 L Hct 30.1 L MCV 83 MCH 27.8 MCHC 33.4 RDW 19.0 H Plt Count 214 Seg Neutrophils % 74.9 Lymphocytes % 17.1 Monocytes % 6.1 Eosinophils % 1.3 Basophils % 0.6 Absolute Neutrophils 5.5 Absolute Lymphocytes 1.3 Absolute Monocytes 0.5 Absolute Eosinophils 0.1 Absolute Basophils 0.0 Sodium 136.6 L Potassium 5.0 Chloride 97 L Carbon Dioxide 29 Anion Gap 11 BUN 68 H Creatinine 1.59 H Est GFR ( Amer) 54 L Est GFR (Non-Af Amer) 44 L Glucose 238 H Calcium 8.8 C-Reactive Protein 13.2 H Impressions: Knee X-Ray 02/16/18 12:10 IMPRESSION: Post recent right [id number] amputation. Stump soft tissues and proximal tibia/ fibula are unremarkable Assessment & Plan - Diagnosis (1) Right BKA infection Is this a current diagnosis for this admission?: Yes - Plan Summary Plan Summary: This is a 63-year-old diabetic male with an abscess and necrotic tissue at the medial aspect of his BKA. I have offered the patient a hospital admission with antibiotics and surgical intervention, but the patient has refused. The patient is requesting bedside incision and drainage with oral antibiotics and discharge home. While this is not ideal, it is feasible. Risks/benefits discussed, informed consent obtained, and all questions answered.
--- NOTE | 2018-02-16 22:46 | Operative Report ---
Nonrecallable Operative Report DATE OF SURGERY: 02/16/18 PREOPERATIVE DIAGNOSIS: 1 abscess of right BKA. 2. Necrotic tissue of right BKA stump. OPERATION: 1. Incision and drainage of abscess of the right BKA stump. 2. Sharp excisional debridement of necrotic skin and fatty tissue of the right BKA stump. Excised area approximately 2 x 3 cm. SURGEON: FRITZ BAE ANESTHESIA: Local TISSUE REMOVED OR ALTERED: Necrotic skin and fatty soft tissue COMPLICATIONS: None apparent ESTIMATED BLOOD LOSS: 10 cc PROCEDURE: Drains/implants: 4 x 4 gauze. Procedure in detail: After informed consent was obtained, the patient was sat in the emergency department. The right BKA stump was prepped and draped in a normal sterile fashion. The previous xavier were removed. The medial aspect of the wound was necrotic appearing at the skin edges. 1% lidocaine was used to infiltrate the skin of the medial BKA stump. An 11 blade scalpel was used to open the wound. All necrotic appearing skin and fatty soft tissue was excised sharply. An abscess cavity was found in the deep space of the below- knee amputation, between the muscles. The abscess cavity was vigorously irrigated. The wound was packed with a 4 x 4 gauze. The dressing was then fashioned, and the procedure was concluded. All sponge, instrument, and needle counts were correct. Condition: Fair.
== END 2018-02-16 16:50 | disposition home or self-care (01) ==
LOC: ER 11:50
DX: T81.42XA Infection following a procedure, deep incisional surgical site, initial encounter (principal); M60.061 Infective myositis, right lower leg; Y83.5 Amputation of limb(s) as the cause of abnormal reaction of the patient, or of later complication, without mention of misadventure at the time of the procedure; Z89.511 Acquired absence of right leg below knee; E11.9 Type 2 diabetes mellitus without complications; I25.10 Atherosclerotic heart disease of native coronary artery without angina pectoris; I10 Essential (primary) hypertension; Z88.8 Allergy status to other drugs, medicaments and biological substances
CPT/HCPCS: 99284; 36415; 85025; 85652; 86140; 80048; 73560; 10061; A9270 ×2; J3490